=== PATIENT | female | born 1990 | race Caucasian/White ===

== ENCOUNTER → 2019-04-15 16:00 | Outpatient (CLI) | payer OTHER, SELFPAY ==
[2019-04-15 15:40] VITALS: BMI 27.1
[2019-04-16 01:04] LABS: Thyroid Stim Hormone (TSH) 0.95 uIU/mL (0.358-3.74)
== END ==
PROVIDERS: Visit Provider Nurse Practitioner
DX: E03.9 Hypothyroidism, unspecified (principal)
CPT/HCPCS: 84443

== ENCOUNTER → 2020-04-05 | Outpatient (CLI) | payer OTHER, SELFPAY ==
[2020-04-05 17:06] VITALS: BMI 29.2
[2020-04-05 22:25] LABS: Thyroid Stim Hormone (TSH) 1.54 uIU/mL (0.358-3.74)
== END | disposition home or self-care (01) ==
PROVIDERS: PCP Nurse Practitioner; Referring Provider Nurse Practitioner; Visit Provider Nurse Practitioner
DX: E03.9 Hypothyroidism, unspecified (principal)
CPT/HCPCS: 84443

== ENCOUNTER → 2021-04-10 | Outpatient (CLI) | payer OTHER, SELFPAY ==
[2020-04-05 17:06] VITALS: BMI 29.2
[2021-04-10 22:55] LABS: Thyroid Stim Hormone (TSH) 1.18 uIU/mL (0.358-3.74)
== END | disposition home or self-care (01) ==
PROVIDERS: PCP Nurse Practitioner; Visit Provider Nurse Practitioner
DX: E03.9 Hypothyroidism, unspecified (principal)
CPT/HCPCS: 84443

== ENCOUNTER → 2022-04-10 | Outpatient (CLI) | payer OTHER, SELFPAY ==
[2022-04-10 23:13] LABS: Thyroid Stim Hormone (TSH) 4.15 uIU/mL (0.358-3.74)
== END | disposition home or self-care (01) ==
PROVIDERS: PCP Nurse Practitioner; Visit Provider Nurse Practitioner
DX: E03.9 Hypothyroidism, unspecified (principal)
CPT/HCPCS: 84443

== ENCOUNTER → 2022-05-06 | Outpatient (CLI) | payer OTHER, SELFPAY ==
[2022-05-06 22:09] LABS: Thyroid Stim Hormone (TSH) 1.62 uIU/mL (0.358-3.74)
== END | disposition home or self-care (01) ==
PROVIDERS: PCP Nurse Practitioner; Visit Provider Nurse Practitioner
DX: E03.9 Hypothyroidism, unspecified (principal)
CPT/HCPCS: 84443

== ENCOUNTER → 2023-05-14 | Outpatient (CLI) | payer OTHER, SELFPAY ==
[2023-05-14 21:31] LABS: Thyroid Stim Hormone (TSH) 0.65 uIU/mL (0.358-3.74)
== END | disposition home or self-care (01) ==
PROVIDERS: PCP Nurse Practitioner; Visit Provider Nurse Practitioner
DX: E03.9 Hypothyroidism, unspecified (principal)
CPT/HCPCS: 84443

== ENCOUNTER → 2024-05-10 | Outpatient (CLI) | payer OTHER, SELFPAY ==
[2024-05-10 22:42] LABS: Thyroid Stim Hormone (TSH) 1.04 uIU/mL (0.358-3.74)
== END | disposition home or self-care (01) ==
PROVIDERS: PCP Nurse Practitioner; Referring Provider Nurse Practitioner; Visit Provider Nurse Practitioner
DX: E03.9 Hypothyroidism, unspecified (principal); B00.9 Herpesviral infection, unspecified
CPT/HCPCS: 84443

== ENCOUNTER → 2025-05-11 | Outpatient (CLI) | payer OTHER, SELFPAY ==
--- OUTSIDE RECORDS SUMMARY | 2025-05-11 21:22 | XMS RPT_ITS | CCD ---
Author Organization [facility] Care Team Providers Care 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 Name Role Phone Ewa Howe Unavailable Unavailable PROVIDER, UNKNOWN Unavailable Unavailable Randy Cueva Unavailable Unavailable Randy Cueva Primary Care Provider [phone] Harley CAREER COACH.DIRECTOR VIDEORandy Primary Care Provide r Harley CAREER COACH.DIRECTOR VIDEORandy Primary Care Provide r RANDY CUEVA Primary Care Unavailable ARSLAN GOMEZ Attending Unavailable RANDY CUEVA Primary Care Unavailable ARSLAN GOMEZ Attending Unavailable Harley ROOF PROMENADE TILE SETTERRandy Referring Unavailable Harley ROOF PROMENADE TILE SETTER, Randy Attending Unavailable Harley ROOF PROMENADE TILE SETTER, Randy Primary Care Unavailable RANDY CUEVA Primary Care Unavailable RANDY CUEVA Primary Care Unavailable Allergies Allergy Classification Reported Allergen(s) Allergy Type Date of Onset Reaction(s) Facility (5 sources) Amoxicillin Drug Allergy 5 Anaphylaxis [place], [place] (4 sources) Penicillins Propensity to adverse reactions to drug 5 Anaphylaxis [place], [place] (3 sources) Penicillins Drug Allergy 5 Anaphylaxis [facility] (1 source) Penicillins Drug Allergy 5 Anaphylaxis [facility] (1 source) Penicillins Allergy to substance 9 Anaphylaxis [facility] (1 source) Penicillins Drug allergy (disorder) 9 [facility] Repository Medications Current Medications Medication Drug Class(es) Dates Sig (Normalized) Sig (Original) Norethindrone-E.Est radiol-Iron (8 sources) Estrogen Start: 04-15-2019 take 1 tablet by mouth once daily Norethindrone-E.Es tradiol-Iron Active 1 TABLET PO DAILY April 15, 2019 12:00am Norethindrn A-E Estradiol-Iron 1 mg-20 mcg (24)/75 mg (4) Take by mouth. 0 Active Norethin Gregg-Eth Estrad-FE (LOMEDIA 24 FE) 1-20 MG-MCG(24) TABS Take by mouth 0 Active Comment on above: Take by mouth. levothyroxine sodium 0.125 mg oral tablet (20 sources) l-Thyroxine Start: 04-11-2022 End: 05-14-2023 take 125 ug by mouth once daily Levothyroxine Active 125 MCG PO DAILY May 14, 2023 10:36pm Start: 04-15-2019 End: 04-11-2022 take 112 ug by mouth once daily Levothyroxine Disconti nued 112 MCG PO DAILY April 11, 2021 1:29pm April 11, 2022 2:57pm take 1 tablet by shereen th once daily before breakfast levothyroxine (SYNTHROID) 100 mcg tablet Indications: hypothyroidism Take 100 mcg by mouth daily before breakfast. Indications: HYPOTHYROIDISM 0 Active Comment on above: Take 100 mcg by mout h daily before breakfast. Indications: HYPOTHYROIDISM 27-1 MG TABS (1 source) Start: 06-13-20 15 27-1 MG TABS MV-Min-Fe Fum-FA-DHA ( 1 PO) (1 source) take 1 tablet by mouth once, then take 1 tablet by mouth MV-Min-Fe Fum-FA-DHA ( 1 PO) Take 1 tablet by mouth 0 Active valACYclovir 500 mg oral tablet (9 sources) Herpesvirus Nucleoside Analog DNA Polymerase Inhibitor, Herpes Simplex Virus Nucleoside Analog DNA Polymerase Inhibitor, Herpes Zoster Virus Nucleoside Analog DNA Polymerase Inhibitor Start: 04-15-20 19 take 500 mg by mouth twice daily Valacyclovir Active 500 MG PO TWICE A DAY April 15, 2019 12:00am Start: 08-18-2015 take 1 tablet by shereen th once daily valACYclovir (VALTREX) 500 mg tablet Take 1 tablet by mouth once daily. 0 08/18/2015 Active Comment on above: Take 1 tablet by shereen th once daily. Completed/Discontinued Medications Medication Drug Class(es) Dates Sig (Normalized) Sig (Original) acetaminophen 325 mg / HYDROcodone bitartrate 5 mg oral tablet (4 sources) Opioid Agonist Start: 12-04-2021 take 1 tablet by mouth every six hours as needed for pain HYDROcodone-acetam inophen (NORCO) 5-325 mg per tablet Indications: Ankle instability, left , Peroneal tendon injury, left, initial encounter , Sprain of anterior talofibular ligament of left ankle, initial encounter Take 1 tablet by mouth every 6 hours as needed for pain. 28 tablet 0 12/04/2021 Active Comment on above: Take 1 tablet by shereen every 6 hours as needed for pain. gadobutrol (GADAVIST) injection 2 mL (1 source) Start: 11-09-2020 End: 11-09-2020 gadobutrol (GADAVIST) injection 2 mL iopamidol (ISOVUE-300) 61 % injection 25 mL (1 source) Start: 11-09-2020 End: 11-09-2020 iopamidol (ISOVUE-300) 61 % injection 25 mL traMADol hydrochloride 50 mg oral tablet (3 sources) Opioid Agonist Start: 06-30-2019 End: 04-05-2020 take 50 mg by mouth every six hours Tramadol Discontinued 50 MG PO EVERY 6 HOURS 42 June 30, 2019 12:00am April 05, 2020 5:06pm Problems Active Problems Problem Classification Problem Date Documented Da te Episodic/Chronic Allergic reactions (2 sources) Allergy status to penicillin; Translations: [Allergy status to penicillin] Onset: 02-07-2018 Episodic Inflammation, infection of eye (2 sources) Unspecified conjunctivitis; Translations: [Unspecified conjunctivitis] Onset: 02-07-2018 Episodic Other eye disorders (2 sources) Unspecified disorder of eye and adnexa; Translations: [Unspecified disorder of eye and adnexa] Onset: 02-07-2018 Other injuries and conditions due to external causes (9 sources) Tendinopathy of peroneal tendon; Translations: [Unspecified injury of muscle(s) and tendon(s) of peroneal muscle group at lower leg level, left leg, initial encounter] Onset: 11-05-2021 Episodic Other non-traumatic joint disorders (8 sources) Instability of joint of left ankle; Translations: [Other instability, left ankle] Onset: 11-05-2021 Episodic Other non-traumatic joint disorders (1 source) Ankle edema; Translations: [Effusion, left ankle] Episodic Other non-traumatic joint disorders (3 sources) Ankle pain; Translations: [Pain in right ankle and joints of right foot] 06-30-2019 Episodic Sprains and strains (10 sources) Sprain of talofibular ligament of left ankle; Translations: [Sprain of other ligament of left ankle, initial encounter] Episodic Thyroid disorders (10 sources) Hypothyroidism, unspecified; Translations: [Hypothyroidism] Onset: 02-07-2018 11-16-2021 Chronic Unclassified (2 sources) Periorbital cellulitis; Translations: [Periorbital cellulitis] Onset: 02-07-2018 Viral infection (1 source) Herpes simplex of female genitalia; 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] Onset: 08-18-2015 08-18-2015 Chronic Viral infection (3 sources) Herpes simplex; Translations: [Herpesviral infection, unspecified] 04-15-2019 Episodic Past or Other Problems Problem Classification Problem Date Documented Date Episodic/Chronic Fracture of lower limb (4 sources) Closed fracture of talus; Translations: [Unspecified fracture of left talus, subsequent encounter for fracture with delayed healing] Onset: 11-05-2021 11-05-2021 Episodic Genitourinary symptoms and ill-defined conditions (1 source) Dysuria; Translations: [Dysuria] Onset: 08-07-2015 08-07-2015 Episodic Other female genital disorders (1 source) Vaginal discharge; Translations: [Vaginal discharge] Onset: 08-07-2015 08-07-2015 Episodic Unclassified (2 sources) MEDIAL PATELLAR- FEMORAL LIGAMENT RECONSTRUCTION (MPLR) 05-06-2022 Unclassified (2 sources) R KNEE RECONSTRUCTIVE SURGERY 05-06-2022 Results Test Name Value Interpretation Reference Range Facility Thyroid Stim Hormone (TSH)on 05-10-2024 TSH 1.04 uIU/mL Normal 0.358-3.74 [facility] Comment on above: Performed By: #### L [id number] #### [facility] Laboratory [facility] [address] [place], [place], [id number] No Panel InformationOrdered By: Randy Cueva on 05-14-2023 Thyroid Stimulating Hormone (TSH) 0.65 uIU/mL 0.358-3.74 [facility] No Panel Informationon 05-06 Thyroid Stimulating Hormone (TSH) 1.62 uIU/mL 0.358-3.74 [facility] Work Phone: No Panel Informationon 04-10 Thyroid Stimulating Hormone (TSH) 4.15 uIU/mL 0.358-3.74 [facility] Work Phone: [id number] LAURYN [facility] ([phone]) 1990 F Date Time Provider Department 12/21/21 KEVIN CLINTON [id number] During your visit today, we recorded the following information about you: Louisa Primitivo 12/21/2021 2:48 PM Signed Patient called into the office she wanted to know if she should be bearing more weight. Her next appointment is 12/05/21. Please advise Salgado Primitivo 12/24/2021 8:37 AM Signed Left message on voicemail with details for the patient about the boot and weight bearing statis . Allergies As of Date: 12/21/2021 Noted Allergy Reaction AMOXICILLIN 02/22/2015 10 - Anaphylaxis PENICILLINS 02/14/2015 10 - Anaphylaxis Comments: Hives and swelling in throat Date Reviewed: 12/10/2021 Reviewed by: Kevin Clinton DPM - Fully Assessed Reason for Visit: Question [8347] Prescriptions as of 12/24/2021 - HYDROcodone-acetaminop hen (NORCO) 5-325 mg per tablet Take 1 tablet by mouth every 6 hours as needed for pain. - valACYclovir (VALTREX) 500 mg tablet Take 1 tablet by mouth once daily. - Norethindrn A-E Estradiol-Iron 1 mg-20 mcg (24)/75 mg (4) Take by mouth. - levothyroxine (SYNTHROID) 100 mcg tablet Take 100 mcg by mouth daily before breakfast. Indications: HYPOTHYROIDISM Problem List As Of Date 12/21/2021 Noted Resolved Closed nondisplaced fracture of left talus with*11/05/2021 Ankle instability, left [M25.372] 11/05/2021 Peroneal tendon injury, left, initial encounter*11/05/2021 Hypothyroidism [E03.9] Encounter Status:Closed by LOUISA GOMEZ on 12/21/21 Normal [facility] CNPNon 12-11-2021 CNPN Telephone ([id number]) LAURYN FINK ([id number]) 1990 F Date Time Provider Department 12/11/21 KEVIN CLINTON [id number] During your visit today, we recorded the following information about you: Louisa Primitivo 12/11/2021 11:22 AM Signed Patient is aware that the [employer] paper work they have requested was faxed over with a confirmation of received. Allergies As of Date: 12/11/2021 Noted Allergy Reaction AMOXICILLIN 02/22/2015 10 - Anaphylaxis PENICILLINS 02/14/2015 10 - Anaphylaxis Comments: Hives and swelling in throat Date Reviewed: 12/10/2021 Reviewed by: Kevin Clinton DPM - Fully Assessed Reason for Visit: FYI-No Action Needed [265] Prescriptions as of 12/11/2021 - HYDROcodone-acetaminop hen (NORCO) 5-325 mg per tablet Take 1 tablet by mouth every 6 hours as needed for pain. - valACYclovir (VALTREX) 500 mg tablet Take 1 tablet by mouth once daily. - Norethindrn A-E Estradiol-Iron 1 mg-20 mcg (24)/75 mg (4) Take by mouth. - levothyroxine (SYNTHROID) 100 mcg tablet Take 100 mcg by mouth daily before breakfast. Indications: HYPOTHYROIDISM Problem List As Of Date 12/11/2021 Noted Resolved Closed nondisplaced fracture of left talus with*11/05/2021 Ankle instability, left [M25.372] 11/05/2021 Peroneal tendon injury, left, initial encounter*11/05/2021 Hypothyroidism [E03.9] Encounter Status:Closed by LOUISA GOMEZ on 12/11/21 Normal [facility] ANES POSTPROC EVALon 022 ANES POSTPROC EVAL HNO ID: [id number] Author: Nirav Jones MD Service: Anesthesiology Author Type: Anesthesiologist Type: Anesthesia Postprocedure Evaluation Filed: 11/21/2021 10:12 AM Note Text: POST ANESTHESIA EVALUATION NOTE : 1990 Procedure Summary Date: 11/21/21 Room / Location: [address] Anesthesia Start: 748 Anesthesia Stop: 954 Procedures: ARTHROSCOPY ANKLE W/ DEBRIDEMENT EXTENSIVE (Left Ankle) REPAIR TENDON PERONEAL (Left Ankle) REPAIR COLLATERAL LIGAMENT BOTH PRIMARY ANKLE (Left Ankle) Diagnosis: Closed nondisplaced fracture of left talus with delayed healing, unspecified fracture morphology, subsequent encounter Ankle instability, left Peroneal tendon injury, left, initial encounter (Closed nondisplaced fracture of left talus with delayed healing, unspecified fracture morphology, subsequent encounter [S92.102G]) (Ankle instability, left [M25.372]) (Peroneal tendon injury, left, initial encounter [S86.302A]) Surgeons: Ellie Cuello DPM Responsible Provider: Nirav Jones MD Anesthesia Type: general ASA Status: 2 Anesthesia Type: general Airway Type: LMA Last Vitals Vitals Value Taken Time BP 107/71 11/21/21 1000 Temp 36.4 ?C (97.5 ?F) 11/21/21 0953 Pulse 78 11/21/21 1011 Resp 16 11/21/21 1000 SpO2 99 % 11/21/21 1011 Vitals shown include unvalidated device data. Post Anesthesia Patient Status Patient Evaluation: PACU. PACU/ICU Patient Condition: stable. Anticipated Disposition: phase 2 then home. Neurological Status: aware and responsive. Pulmonary Status: breathing comfortably on room air Airway Control: returned to baseline unsupported. Cardiovascular Status: stable. Pain Management: clinically adequate Postoperative Hydration: acceptable. Intraoperative Events: no significant anesthesia events Recommendation: continue current plan of care and further care per PACU/ICU/floor team. Anesthesia Observations No Documentation SIGNATURE: Nirav Jones MD PATIENT NAME: Lauryn Fink DATE: November 21, 2021 TIME: 10:12 AM CSN: [id number] [facility] ANES PRE-OPon 11-21-2021 ANES PRE-OP HNO ID: [id number] Author: Nirav Jones MD Service: Anesthesiology Author Type: Anesthesiologist Type: Anesthesia Preprocedure Evaluation Filed: 11/21/2021 7:20 AM Note Text: ANESTHESIOLOGY DAY OF SURGERY NOTE : 1990 Procedure Information Date/Time: 11/21/21 0729 Procedures: ARTHROSCOPY ANKLE W/ DEBRIDEMENT EXTENSIVE (Left Ankle) REPAIR TENDON PERONEAL (Left Ankle) REPAIR COLLATERAL LIGAMENT BOTH PRIMARY ANKLE (Left Ankle) Location: [address] / [facility] Surgeons: Ellie Cuello DPM Estimated body mass index is 29.12 kg/m? as calculated from the following: Height as of 11/13/21: 165.1 cm (5' 5). Weight as of 11/13/21: 79.4 kg (175 lb). Most recent hematocrit and potassium results: Hematocrit 33.7 02/23/2015 Relevant Problems ENDO (+) Hypothyroidism I - PHYSICAL EVALUATION AIRWAY Patient intubated: No. Tracheostomy tube not present Mallampati: II. TM distance: >3 FB. Neck ROM: full ROM without neurological symptoms. Mouth opening: adequate. Short neck: no. Thick neck: no DENTAL Dental findings: teeth intact. Additional exam findings: yes. CARDIOVASCULAR Normal cardiovascular observations. Rhythm: regular Rate: normal PULMONARY Normal pulmonary observations. Breath sounds clear to auscultation. Other findings: Patient unable to void for urine test. She denies possibility of and desires to proceed. All members of the team agree and we will proceed with the case.. II - ANESTHESIA PLAN ASA Score: 2 Anesthetic Plan: general Airway type: LMA NPO Status: adequate Monitoring plan: Standard ASA. Postoperative analgesic plan: multimodal analgesia and peripheral nerve block. Anesthetic Risks, Benefits, Alternatives, Personnel Discussed. Consent obtained from: patient.Patient / Surrogate agrees to blood products: blood products not planned Significant changes in the patient condition since the History and Physical, not otherwise documented in primary service progress note: no. Potential Anesthesia issues that may suggest increased risk of complications or contraindication to planned procedure: none. Vitals Value Taken Time BP 124/79 11/21/2135 Pulse 94 11/21/21635 Resp 16 11/21/21630 Temp 36 ?C (96.8 ?F) 11/21/21630 SpO2 100 % 11/21/21635 Vitals shown include unvalidated device data. Facility-Administered Medications as of 11/21/2021 Medication Dose Route Frequency - [COMPLETED] acetaminophen 1,000 mg tab(s) (TYLENOL) 1,000 mg ORAL Pre-Op Once - [COMPLETED] promethazine 12.5 mg tab(s) (PHENERGAN) 12.5 mg ORAL Pre-Op Once - lactated ringers iv infusion 30 mL/hr INTRAVENOUS CONTINUOUS - lidocaine 10 mg/mL (1 %) 1-2 mg injection (XYLOCAINE) 0.1-0.2 mL INTRADERMAL PRN - lactated ringers iv infusion 5-30 mL/hr INTRAVENOUS CONTINUOUS - clindamycin iv piggyback 900 mg in D5W 50 mL (CLEOCIN) 900 mg INTRAVENOUS Pre-Op Once Outpatient Medications as of 11/21/2021 Medication Sig - Norethindrn A-E Estradiol-Iron 1 mg-20 mcg (24)/75 mg (4) Take by mouth. - levothyroxine (SYNTHROID) 100 mcg tablet Take 100 mcg by mouth daily before breakfast. Indications: HYPOTHYROIDISM - valACYclovir (VALTREX) 500 mg tablet Take 1 tablet by mouth once daily. (Patient not taking: Reported on 11/13/2021 ) I have interviewed and examined the patient. I have reviewed the medical record and/or the pre-anesthesia evaluation, pertinent labs, and test results. This contains updated information obtained within 48 hours of Surgery/Procedure. SIGNATURE: Nirav Jones MD PATIENT NAME: Lauryn Fink DATE: November 21, 2021 TIME: 6:42 AM CSN: [id number] [facility] BRIEF OP NOTon 11-21-2021 BRIEF OP NOT HNO ID: [id number] Author: Siobhan Anthony DPM Service: Podiatry Author Type: Resident Type: Brief Op Note Filed: 11/21/2021 9:59 AM Note Text: Attestation signed by Ellie Cuello DPM at 11/21/2021 10:25 AM Statement of Resident/FellowSupervi liz: The resident/fellow was under my direct supervision during today's patient encounter. I am in agreement with the medical chart documentation, as this is a reflection of my personal examination, assessment and treatment plan. Additionally, I was present with the resident/fellow during the entire history and exam and documented the patient's assessment and treatment plan. I discussed the management with the resident. Ellie Cuello DPM, FACFAS BRIEF OPERATIVE / PROCEDURE NOTE LOG ID: [id number] SURGERY/PROCEDURE DATE: 11/21/2021 INCISION/PROCEDURE START TIME: 8:15 AM INCISION CLOSE/PROCEDURE END TIME: 9:44 AM SURGEON(S)/PROCEDURALI ST(S) AND HEAD CHAR FILTER TANK TENDER(S): Surgeon(s) and Role: * Ellie Cuello DPM - Primary * Siobhan Anthony DPM - Resident - Assisting No Additional Staff SURGERY/PROCEDURE(S): Peroneal tendon repair, left foot Lateral ankle stabilization, left foot Ankle arthroscopy, left foot ANESTHESIA: General FINDINGS: See op note ESTIMATED BLOOD LOSS: 10 mls SPECIMENS: Peroneal tendon tear, left foot COMPLICATIONS: None PRE-OP/PRE-PROCEDURE DIAGNOSIS: Peroneal tendon tear; lateral ankle instability, ankle synovitis, all left foot POST-OP/POST-PROCEDURE DIAGNOSIS: Same as Preop SIGNATURE: Siobhan Anthony DPM PATIENT NAME: Lauryn Fink DATE: November 21, 2021 TIME: 9:57 AM [phone] [facility] HISTORY PHYSICALon HISTORY PHYSICAL HNO ID: [id number] Author: Siobhan Anthony DPM Service: Podiatry Author Type: Resident Type: HANDP Filed: 11/21/2021 9:57 AM Note Text: Attestation signed by Ellie Cuello DPM at 11/21/2021 10:25 AM Statement of Resident/FellowSupervi liz: The resident/fellow was under my direct supervision during today's patient encounter. I am in agreement with the medical chart documentation, as this is a reflection of my personal examination, assessment and treatment plan. Additionally, I was present with the resident/fellow during the entire history and exam and documented the patient's assessment and treatment plan. I discussed the management with the resident. Ellie Cuello DPM, FACFAS PODIATRIC HISTORY AND PHYSICAL UPDATE EVALUATION DATE: 11/21/2021 EVALUATION TIME: 7:04 AM The documented History and Physical (completed in the past 30 days) has been reviewed and the patient had a confirmatory musculoskeletal exam performed. The contents of the pre-operative assesment accurately reflect the patient's condition with the following additions or revisions since the HANDP was completed: No changes. This HANDP can be found in the record dated 11/13/2021. SIGNATURE: Siobhan Anthony DPM PATIENT NAME: Lauryn Fink DATE: November 21, 2021 [facility] NURSING PROGon 11-21-2021 NURSING PROG HNO ID: [id number] Author: Anabel Hunter RN Service: ? Author Type: Registered Nurse Type: Nursing Progress Note Filed: 11/21/2021 7:08 AM Note Text: Nursing Progress Note Patient Name: Lauryn Fink Patient Location: [facility] POOL/[facility] POOL __ Daily Note:Pt unable to give urine sample for test , agrees to move ahead with procedure and block.Risks explained to pt if and receiving anesthesia. Dr. Jones and Teodora Cruz at bedside to discuss.Dr. Cuello also made aware.ok to proceed. This note was completed by: Anabel Hunter [facility] OPERATIVE NOon 11-21-2021 OPERATIVE NO HNO ID: [id number] Author: Ellie Cuello DPM Service: Podiatry Author Type: Physician Type: Operative Report Filed: 11/22/2021 10:42 AM Note Text: OPERATIVE REPORT NAME: Lauryn Fink DATE: 11/21/21 AGE: [age] year old SURGEON: Ellie Cuello DPM ASSISTANTS: 1. Siobhan Anthony DPM PGY-3 PREOPERATIVE DIAGNOSIS: 1. Peroneal tendon tear; lateral ankle instability, ankle synovitis with possible cartilage defect, all left foot POSTOPERATIVE DIAGNOSIS: 1. Same as preop OPERATION: 1. Peroneal tendon repair, left foot 2. Lateral ankle stabilization with Brostom procedure, left foot 3. Ankle arthroscopy, left foot (Limited) 4. 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 She is here for surgical repair of this today now that she has failed on conservative therapy. Discussed surgical and non-surgical methods of treatment with the patient. The natural history and course were discussed in relation to the options. Surgical risks, benefits, alternatives post-operative course, and all possible outcomes were discussed in great detail. Answered all of the patient's questions to the patient's satisfaction. No guarantees were given. The patient understands this. Patient elects to proceed with surgery. OPERATIVE FINDINGS: No evidence of cartilage defect within the left ankle joint. There is chronic synovitis. Ligamentous laxity noted to the ATFL which appeared to be insufficient. Longitudinal split tear peroneus brevis tendon, left foot. Low lying muscle belly of the peroneals, left foot. OPERATIVE PROCEDURE: Patient was transferred from the preoperative holding area to the operative suite and placed in a supine position. Popliteal nerve block performed pre-operatively. All monitors were applied. General anesthesia was administered. Prophylaxis was obtained with 900 mg clindamycin IV piggyback pre-operatively. Tourniquet was applied to the left thigh, but not yet inflated. The left foot, ankle, and leg were then prepped and draped in the normal sterile fashion. Time out was performed. Attention was directed to the anterior medial ankle where the ankle was insufflated with 20 cc of 1% lidocaine with epinephrine. Anatomic landmarks were then identified, specifially the anterior tibialis tendon and the superficial peroneal nerve, which were protected throughout the procedure. An anterior medial portal was created with an #11 blade medial to the tibialis anterior tendon. The soft tissues were spread with a hemostat. The obturator and cannula was inserted. A 30? angle Arthrex camera was utilized. The joint was split and insufflated with sterile saline via arthroscopy pump. Excellent visualization was achieved. There was noted to be mild synovitis within the joint. No obvious osteochondral defect was noted. Due to further visualization, lateral portal was made under direct visualization. An #11 blade was used to create the lateral portal lateral to the extensor digitorum longus tendon at the level of the ankle joint line. Great care was taken to prevent injury to the superficial peroneal nerve. Blunt obturator was inserted. A shaver was then inserted and hypertrophied synovitis was debrided. The ankle was fully visualized. The central groove was intact. Inferior tibial surface appeared to be intact. Medial shoulder of the talus as well as medial gutter overall was intact. At this time, the scope was removed and attention was directed laterally. Landmarks were then identified laterally prior to incision, including the distal fibula, superficial peroneal nerve, and superior border of the peroneal tendons. Inferior extensor retinaculum was also marked, 1.5cm from the distal tip of the fibula. A utility incision was then made in a linear fashion from the posterior aspect of the distal 1/3 of the fibula overlying the peroneals toward the inferior extensor retinaculum. This was performed sharply and then bluntly. Bleeders were cauterized as appropriate. A #15 blade was used to carry the incision to the level of bone of the distal tip of the fibula, creating a cuff of soft tissue of the anterior talofibular ligament. This dissection was carried carefully posterior exposing the sheath of the peroneal tendons. The tendon sheath was then incised from the SPR and proximal to reveal the full extent of the peroneal tendons. The brevis and longus were identified. There was noted to be significant tenosynovitis, a longitudinal split tear of the peroneal brevis tendon, as well as a low lying muscle belly. All tenosynovitis was then removed with a # 15 blade and the diseased portion of the brevis tendon was also removed. The remaining brevis tendon was then anastomosed with the p (more content not included)... Normal [facility] SURGICAL PATHOLOGYon 022 SURGICAL PATHOLOGY Specimen originated from [facility] Specimen #: [id number] Submitting Physician: ELLIE CUELLO FINAL DIAGNOSIS Soft tissue, left peroneal tendon, excision: Tendon, fibrocartilage and fibrous tissue with non-specific reactive changes. ADELINA/AMANDA 11/23/2021 David Burton M.D., PhD (Electronic Signature) _ SPECIMEN SUBMITTED A: LEFT PERONEAL TENDON CLINICAL DATA LEFT ANKLE ARTHROSCOPY, LEFT PERONEAL TENDON REPAIR, LEFT COLLATERAL LIGAMENT REPAIR; LEFT PERONEAL TENDON TEAR GROSS DESCRIPTION A. Received in formalin designated left peroneal tendon is a michel-white cylindrical striated rubbery fragment of tissue that measures 3.3 x 0.2 x 0.2 cm. The specimen is serially sectioned and entirely submitted in one cassette. WE/ 11/22/2021 Gross examination performed at [facility], [address] [place] [address] Date of Report: 11/26/2021 Date of Procedure: 11/21/2021 Date of Receipt: 11/22/2021 Submitted by: ELLIE CUELLO Additional Physician(s): RANDY CUEVA APRN, CNP Location: [facility] Diagnostic interpretation performed at [facility], [address] [place] [address]. CLIA Number: [id number] Normal [facility] HISTORY PHYSICALon HISTORY PHYSICAL HNO ID: [id number] Author: Lore King PA-C Service: ? 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 It require patient-provider interaction for the medical decision making as documented below. Reason for contact: PACC visit Accompanied by: Self Scheduled Surgery: ARTHROSCOPY ANKLE W/ DEBRIDEMENT EXTENSIVE LEFT; REPAIR TENDON PERONEAL LEFT; REPAIR COLLATERAL LIGAMENT BOTH PRIMARY ANKLE LEFT 11/21/2021 Subjective CHIEF COMPLAINT: Patient presents with: Pre-Op Exam HPI: This is a 31 year old female who presents with a closed nondisplaced fracture of her left talus, ankle instability, and peroneal tendon injury she sustained going down a step in March 2021. She noticed pain and swelling the following day and continued to have pain and swelling and was placed in a boot. The pain is constant achy pain that worsens with prolonged walking and cold weather. Rest helps to alleviate the pain. MRI from 09/10/2021 revealed: ? IMPRESSION: 1. ?Split tear of the peroneus brevis tendon. 2. ?Mild tenosynovitis involving the peroneal tendons and posterior tibial tendon versus physiologic fluid. 3. ?Low-grade sprain of the deltoid ligaments and anterior syndesmotic ligaments. 4. ?Nonspecific posterior subtalar joint effusion. 5. ?Small area of grade 2 cartilage irregularity involving the medial tibial plafond. 6. ?No evidence of bone fracture or contusion. ACTIVE PROBLEM LIST Closed Nondisplaced Fracture of Left Talus With Delayed Healing Ankle Instability, Left Peroneal Tendon Injury, Left, Initial Encounter PAST MEDICAL HISTORY Diagnosis Date - Closed nondisplaced fracture of left talus - Hypothyroidism - Knee dislocation right - Thyroid disease PAST SURGICAL HISTORY Procedure Laterality Date - KNEE SURGERY HX Right 2013 FAMILY HISTORY Problem Relation Age of Onset - Hypothyroidism Mother - No Known Problems Father Social History Tobacco Use - Smoking status: Never Smoker - Smokeless tobacco: Never Used Substance Use Topics - Alcohol use: Yes Alcohol/week: 1.3 standard drinks Types: 1 Mixed Drinks per week - Drug use: No ALLERGIES Allergen Reactions - Amoxicillin Anaphylaxis - Penicillins Anaphylaxis Hives and swelling in throat MEDICATIONS: Current Outpatient Medications Medication Sig - Norethindrn A-E Estradiol-Iron 1 mg-20 mcg (24)/75 mg (4) Take by mouth. - levothyroxine (SYNTHROID) 100 mcg tablet Take 100 mcg by mouth daily before breakfast. Indications: HYPOTHYROIDISM - valACYclovir (VALTREX) 500 mg tablet Take 1 tablet by mouth once daily. (Patient not taking: Reported on 11/13/2021 ) No current facility-administered medications for this visit. COVID VACCINATION STATUS: Fully vaccinated REVIEW OF SYSTEMS: Pain Assessment: General: No weight loss, malaise or fevers. Neuro: No history of TIA's, stroke, COLOR WEIGHER tumor, impaired sensorium, hemiplegia, paraplegia or quadraplegia. No neurological symptoms or problems. Respiratory: No history of current cough or dyspnea, or pneumonia in the past 6 weeks. No history of respiratory/pulmonary symptoms or problems. Cardiovascular: No history of HTN requiring medication, no history of angina, CHF, VA, cardiac surgery or stents. Denies rest pain, gangrene or revascularization/ampu tation for PVD. No history of cardiovascular symptoms or problems. GI: No history of GI symptoms or problems. No history of esophageal varices, recent ascites, or ETOH greater than 2 drinks per day. : No history of dysuria, frequency or incontinence,, stones or chronic kidney disease COUNTY TAX ASSESSOR: Negative for abnormal vaginal bleeding, abnormal vaginal discharge. : Denies, Patient's last menstrual period was 11/02/2021 (exact date). Endocrine: No history of diabetes. Has not taken steroids within the past 30 days. +hypothyroid Hematology: No history of bleeding or clotting disorder. Pt is not taking anti-coagulation or platelet medications. No history of hematological symptoms or problems. Oncology: No history of CA metastasis, chemo within 30 days, or radiotherapy within 90 days. Has not lost 10% of body wt in 6 months. No history of oncological symptoms or problems. Psych: No history of psychiatric symptoms or problems. Musculoskeletal: Negative for back pain or muscle pain. +Closed nondisplaced fracture of left talus/ ankle instability/ peroneal tendon injury- see HPI Skin: Negative for lesions, rash and itching. Objective PHYSICAL EXAM: Ht 5' 5 (1.65m) Wt 175 lb (79.4kg) LMP 11/02/2021 BMI 29.12 kg/(m2). VIDEO EXAM: (if completed, performed via video enabled technology) GENERAL: alert and appropriate, in no distress, well-hydrated, well nourished and happy, smiling, interacti (more content not included)... Normal [facility] [place] 11-05-2021 [facility] Telephone ([id number]) LAURYN FINK ([id number]) 1990 F Date Time Provider Department 11/05/21 ELLIE CUELLO [facility] During your visit today, we recorded the following information about you: Ewa Jenkins MA 11/05/2021 10:14 AM Signed Lauryn is scheduled 11/21/21 at [facility]. Please send surgery orders. Allergies As of Date: 11/05/2021 Noted Allergy Reaction AMOXICILLIN 02/22/2015 10 - Anaphylaxis PENICILLINS 02/14/2015 10 - Anaphylaxis Comments: Hives and swelling in throat Date Reviewed: 10/10/2021 Reviewed by: Chapis Thomason MA - Fully Assessed Reason for Visit: Schedule Surgery [1330] Prescriptions as of 11/14/2021 - valACYclovir (VALTREX) 500 mg tablet Take 1 tablet by mouth once daily. - Norethindrn A-E Estradiol-Iron 1 mg-20 mcg (24)/75 mg (4) Take by mouth. - levothyroxine (SYNTHROID) 100 mcg tablet Take 100 mcg by mouth daily before breakfast. Indications: HYPOTHYROIDISM Problem List As Of Date 11/05/2021 Noted Resolved Closed nondisplaced fracture of left talus with*11/05/2021 Ankle instability, left [M25.372] 11/05/2021 Peroneal tendon injury, left, initial encounter*11/05/2021 Encounter Status:Closed by EWA JENKINS MA on 11/14/21 [facility] MRI ANKLE WO IVCON LTon 12-0 MRI ANKLE WO IVCON LT * * *Final Report* * * DATE OF EXAM: Sep 09 2021 2:16PM MDM 0163 - MRI ANKLE WO IVCON LT / PROCEDURE REASON: M25.572-Acute left ankle pain * * * * Physician Interpretation * * * * MRI OF THE LEFT ANKLE CLINICAL HISTORY: fall March 2021, lateral sided left ankle pain, no prior surgery TECHNIQUE: Multiplanar multisequence MRI imaging of the left ankle was performed without administration of gadolinium. COMPARISON: No prior study for comparison. FINDINGS: No abnormal ankle joint effusion. Also minimal grade 2 cartilage irregularity involving the medial tibial plafond and (series 7 image 23). No osteochondral lesion of the ankle joint. Anterior subtalar joint is intact. Posterior subtalar joint effusion. No osteochondral lesion or injury of the posterior subtalar joint. ATFL, PTFL, and CFL are intact. Low-level signal involving the deltoid ligaments (series 8 image 11 and series 7 images 24 and 25). Low-level signal involving the anterior syndesmotic ligaments (series 8 images 8 and 9). Posterior syndesmotic ligaments are intact. Achilles tendon is intact. Plantar aponeurosis is intact. Mild tenosynovitis involving the posterior tibial tendon. Posterior tibial tendon, flexor digitorum longus, and flexor hallucis longus tendon are intact. Physiologic fluid involving the peroneal tendons versus mild tenosynovitis. Split tear involving the peroneus brevis tendon (series 8 images 4 through 17). Peroneus longus tendon and extensor tendons of the ankle are intact. No evidence of bone fracture or contusion. Midfoot bone alignment is intact. No soft tissue mass or collection. IMPRESSION: 1. Split tear of the peroneus brevis tendon. 2. Mild tenosynovitis involving the peroneal tendons and posterior tibial tendon versus physiologic fluid. 3. Low-grade sprain of the deltoid ligaments and anterior syndesmotic ligaments. 4. Nonspecific posterior subtalar joint effusion. 5. Small area of grade 2 cartilage irregularity involving the medial tibial plafond. 6. No evidence of bone fracture or contusion. 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: [facility] Transcribe Date/Time: Sep 10 2021 8:26A Dictated by : EDIN IVEY MD This examination was interpreted and the report reviewed and electronically signed by: EDIN IVEY MD on Sep 10 2021 9:02AM EST [id number] [facility] 08-13-2021 [facility] Telephone ([id number]) LAURYN FINK ([id number]) 1990 F Date Time Provider Department 08/13/21 KEVIN CLINTON [id number] During your visit today, we recorded the following information about you: Ewa Fernando MA 08/13/2021 11:40 AM Signed MRI is approved Ref # is [id number] and approval # is [id number] I left message with patient to make appointment Allergies As of Date: 08/13/2021 Noted Allergy Reaction AMOXICILLIN 02/22/2015 10 - Anaphylaxis PENICILLINS 02/14/2015 10 - Anaphylaxis Comments: Hives and swelling in throat Date Reviewed: 08/13/2021 Reviewed by: Kevin Clinton DPM - Fully Assessed Reason for Visit: Insurance Authorization [[id number]] Cmt: MRI Prescriptions as of 08/14/2021 - meloxicam (MOBIC) 15 mg tablet TAKE 1 TABLET BY MOUTH EVERY DAY - Norethindrn A-E Estradiol-Iron 1 mg-20 mcg (24)/75 mg (4) Take by mouth. - methylPREDNISolone (MEDROL, PHAN,) 4 mg Dose-Pack Use as directed - oxyCODONE-acetaminophe n (PERCOCET) 5-325 mg tablet Take 1-2 tablets by mouth every 4 hours as needed. - ibuprofen (MOTRIN) 600 mg tablet Take 1 tablet by mouth four times daily as needed. - levothyroxine (SYNTHROID) 100 mcg tablet Take 100 mcg by mouth daily before breakfast. Indications: HYPOTHYROIDISM - PNV NO.115/IRON FUMARATE/FA ( 19 ORAL) Take by mouth. Problem List As Of Date: 08/13/2021 (None) Encounter Status:Closed by EWA FERNANDO MA on 08/14/21 [facility] OBSOLETEon 07-27-2021 OBSOLETE Refill ([id number]) LAURYN FINK ([id number]) 1990 F Date Time Provider Department 07/27/21 KEVIN CLINTON [id number] During your visit today, we recorded the following information about you: Allergies As of Date: 07/27/2021 Noted Allergy Reaction AMOXICILLIN 02/22/2015 10 - Anaphylaxis PENICILLINS 02/14/2015 10 - Anaphylaxis Comments: Hives and swelling in throat Date Reviewed: 07/16/2021 Reviewed by: Kevin Clinton DPM - Fully Assessed Reason for Visit: Refill Request [94] Order(s):meloxicam (MOBIC) 15 mg tabletTAKE 1 TABLET BY MOUTH EVERY DAYDisp: 30 tabletRfl: 1 Prescriptions as of 07/31/2021 - meloxicam (MOBIC) 15 mg tablet TAKE 1 TABLET BY MOUTH EVERY DAY - Norethindrn A-E Estradiol-Iron 1 mg-20 mcg (24)/75 mg (4) Take by mouth. - methylPREDNISolone (MEDROL, PHAN,) 4 mg Dose-Pack Use as directed - oxyCODONE-acetaminophe n (PERCOCET) 5-325 mg tablet Take 1-2 tablets by mouth every 4 hours as needed. - ibuprofen (MOTRIN) 600 mg tablet Take 1 tablet by mouth four times daily as needed. - levothyroxine (SYNTHROID) 100 mcg tablet Take 100 mcg by mouth daily before breakfast. Indications: HYPOTHYROIDISM - PNV NO.115/IRON FUMARATE/FA ( 19 ORAL) Take by mouth. Problem List As Of Date: 07/27/2021 (None) Prescriptions ordered this encounter Disp Refills Start End MELOXICAM 15 MG TABLET 30 t* 1 07/31/2021 Sig: TAKE 1 TABLET BY MOUTH EVERY DAY Medications Discontinued During This Encounter Prescriptions - meloxicam (MOBIC) 15 mg tablet (Discontinued) Take 1 tablet by mouth once daily. Encounter Status:Closed by GENESIS CLINTON on 07/31/21 [facility] ARTHR/ASP/INJ MAJOR JT/BU RSA LT WO USon 11-09-2020 Patient Name: LAURYN FINK Fluoroscopy ACCESSION EXAM DATE/TIME PROCEDURE ORDERING PROVIDER [id number] 11/09/2020 12:49 EST RF Arthrogram Aspir Inj SUZETTE NICHOLS Cedric Jt Left CPT code 91450 [id number] Reason For Exam (RF Arthrogram Aspir Inj Cedric Jt Left) impingement syndrome of left shoulder, left biceps tendonitis Report Examination: Fluoroscopic guided left shoulder arthrogram and gadolinium injection Clinical Indication: Left shoulder pain concern for impingement, left biceps tendinitis Comparison: None Findings: Informed written consent was obtained from the patient after the risks, benefits, and alternatives to diagnostic joint injection were adequately explained and all questions were answered. This was explained by Dr. George Zhu. Patient was placed in supine position. 0.5 percent ropivacaine was used for local anesthesia. Access was then obtained under direct fluoroscopic guidance into the left glenohumeral joint. A solution of 1 to 200 IV gadolinium Magnevist (<1ml), 10 mL of Isovue-200, 3 mL of ropivacaine, and 7 mL of saline was injected to distend the joint space. Total fluoroscopic time 0.5 minutes. Three stored fluoroscopic images obtained. Arthrogram demonstrates no contrast extravasation. There is laxity within the inferior joint capsule. No immediate complications were appreciated. Impression: Status post left glenohumeral joint diagnostic gadolinium injection for subsequent MR arthrography. Some laxity within the inferior joint capsule. No conventional arthrographic evidence of rotator cuff tear. Fluoroscopy Report Report Dictated on --- Final --- Dictated: 11/09/2020 3:15 pm Dictating Physician: MD ZHU ANTHONY J Signed Date and Time: 11/09/2020 3:17 pm Signed by: MD ZHU ANTHONY J Transcribed Date and Time: 11/09/2020 3:15 [facility] Incoming Radiology Results From [facility] - 11/09/2020 3:18 PM EST Patient Name: LAURYN FINK [facility]#: [id number] Fluoroscopy ACCESSION EXAM DATE/TIME PROCEDURE ORDERING PROVIDER [id number] 11/09/2020 12:49 EST RF Arthrogram Aspir Inj SUZETTE NICHOLS Cedric Jt Left CPT code 12765 [id number] Reason For Exam (RF Arthrogram Aspir Inj Cedric Jt Left) impingement syndrome of left shoulder, left biceps tendonitis Report Examination: Fluoroscopic guided left shoulder arthrogram and gadolinium injection Clinical Indication: Left shoulder pain concern for impingement, left biceps tendinitis Comparison: None Findings: Informed written consent was obtained from the patient after the risks, benefits, and alternatives to diagnostic joint injection were adequately explained and all questions were answered. This was explained by Dr. George Zhu. Patient was placed in supine position. 0.5 percent ropivacaine was used for local anesthesia. Access was then obtained under direct fluoroscopic guidance into the left glenohumeral joint. A solution of 1 to 200 IV gadolinium Magnevist (<1ml), 10 mL of Isovue-200, 3 mL of ropivacaine, and 7 mL of saline was injected to distend the joint space. Total fluoroscopic time 0.5 minutes. Three stored fluoroscopic images obtained. Arthrogram demonstrates no contrast extravasation. There is laxity within the inferior joint capsule. No immediate complications were appreciated. Impression: Status post left glenohumeral joint diagnostic gadolinium injection for subsequent MR arthrography. Some laxity within the inferior joint capsule. No conventional arthrographic evidence of rotator cuff tear. Fluoroscopy Report Report Dictated on --- Final --- Dictated: 11/09/2020 3:15 pm Dictating Physician: MD ZHU ANTHONY J Signed Date and Time: 11/09/2020 3:17 pm Signed by: MD ZHU ANTHONY J Transcribed Date and Time: 11/09/2020 3:15 [place], [place] MRI UPPER EXTREMITY LEFT W [facility] 11-09-2020 Patient Name: LAURYN FINK Magnetic Resonance Imaging ACCESSION EXAM DATE/TIME PROCEDURE ORDERING PROVIDER [id number] 11/09/2020 13:23 EST MRI Up Ext Joint w/ SUZETTE NICHOLS Contrast Left CPT code 48117 Reason For Exam (MRI Up Ext Joint w/ Contrast Left) left shoulder pain post arthrogram Report Examination: MRI arthrogram left shoulder Clinical Indication: left shoulder pain post arthrogram Comparison: None Findings: Multiplanar multisequence MRI images were obtained through the left shoulder after administration of 1 to 200 intra-articular Gadavist gadolinium (<1ml). Images include axial, sagittal, and coronal sequences. Patient deferred abducted externally rotated (ABER) imaging, unable to maintain deposition without subluxation. T2 weighted images demonstrate no osseous edema within the shoulder to suggest fracture or contusion. Examination is mildly degraded by motion artifact. Patient unable to remain completely still during the exam. Normal osseous signal intensity. No avascular necrosis. No evidence of Hill-Sachs or Bankart type injury. Acromioclavicular joint is within normal limits. There is flat type I acromion. No significant inflammation in the subacromial subdeltoid bursa. Long head biceps is normal in morphology and signal without tear or subluxation. Subscapularis is grossly intact, normal in appearance. Supraspinatus and infraspinatus also are intact, normal in morphology and signal. No significant tendinitis. Glenohumeral articular cartilage demonstrates no focal or full thickness defect. There is mild cartilage thinning posteriorly. 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 There is linear Magnetic Resonance Imaging Report tear, slightly jagged and irregular within the superior and posterior superior labrum, SLAP type lesion and age-indeterminate. Superior and middle glenohumeral ligaments are normal. Inferior glenohumeral ligament demonstrates laxity and partial chronic tear at the humeral attachment best seen on series 9 image 13. There is some extravasation of contrast inferiorly. Tear measures approximately 0.6 cm series 7 image 16 with some thinning of the glenohumeral ligament. Impression: 1. Age-indeterminate SLAP tear of the superior and posterior superior glenoid labrum. 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 2. Laxity and thinning within the inferior glenohumeral ligament more posteriorly with focal defect measuring 0.6 cm near the humerus. Finding likely represents remote partial humeral avulsion of the glenohumeral ligament, chronic HAGL type injury. Correlate with concern for capsular instability. Report Dictated on --- Final --- Dictated: 11/09/2020 3:47 pm Dictating Physician: MD ZHU ANTHONY J Signed Date and Time: 11/09/2020 4:13 pm Signed by: MD ZHU ANTHONY J Transcribed Date and Time: 11/09/2020 3:47 [facility] [place] [place] Incoming Radiology Results From [facility] - 11/09/2020 4:14 PM EST Patient Name: LAURYN FINK Magnetic Resonance Imaging ACCESSION EXAM DATE/TIME PROCEDURE ORDERING PROVIDER [id number] 11/09/2020 13:23 EST MRI Up Ext Joint w/ SUZETTE NICHOLS Contrast Left CPT code 58750 Reason For Exam (MRI Up Ext Joint w/ Contrast Left) left shoulder pain post arthrogram Report Examination: MRI arthrogram left shoulder Clinical Indication: left shoulder pain post arthrogram Comparison: None Findings: Multiplanar multisequence MRI images were obtained through the left shoulder after administration of 1 to 200 intra-articular Gadavist gadolinium (<1ml). Images include axial, sagittal, and coronal sequences. Patient deferred abducted externally rotated (ABER) imaging, unable to maintain deposition without subluxation. T2 weighted images demonstrate no osseous edema within the shoulder to suggest fracture or contusion. Examination is mildly degraded by motion artifact. Patient unable to remain completely still during the exam. Normal osseous signal intensity. No avascular necrosis. No evidence of Hill-Sachs or Bankart type injury. Acromioclavicular joint is within normal limits. There is flat type I acromion. No significant inflammation in the subacromial subdeltoid bursa. Long head biceps is normal in morphology and signal without tear or subluxation. Subscapularis is grossly intact, normal in appearance. Supraspinatus and infraspinatus also are intact, normal in morphology and signal. No significant tendinitis. Glenohumeral articular cartilage demonstrates no focal or full thickness defect. There is mild cartilage thinning posteriorly. 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 There is linear Magnetic Resonance Imaging Report tear, slightly jagged and irregular within the superior and posterior superior labrum, SLAP type lesion and age-indeterminate. Superior and middle glenohumeral ligaments are normal. Inferior glenohumeral ligament demonstrates laxity and partial chronic tear at the humeral attachment best seen on series 9 image 13. There is some extravasation of contrast inferiorly. Tear measures approximately 0.6 cm series 7 image 16 with some thinning of the glenohumeral ligament. Impression: 1. Age-indeterminate SLAP tear of the superior and posterior superior glenoid labrum. 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 2. Laxity and thinning within the inferior glenohumeral ligament more posteriorly with focal defect measuring 0.6 cm near the humerus. Finding likely represents remote partial humeral avulsion of the glenohumeral ligament, chronic HAGL type injury. Correlate with concern for capsular instability. Report Dictated on --- Final --- Dictated: 11/09/2020 3:47 pm Dictating Physician: MD ZHU ANTHONY J Signed Date and Time: 11/09/2020 4:13 pm Signed by: MD ZHU ANTHONY J Transcribed Date and Time: 11/09/2020 3:47 [place], [place] MRI Up Ext Joint w/ Contrast Lefton 11-09-2020 MRI Up Ext Joint w/ Contrast Left Patient Name: LAURYN FINK Magnetic Resonance Imaging ACCESSION EXAM DATE/TIME PROCEDURE ORDERING PROVIDER [id number] 11/09/2020 13:23 EST MRI Up Ext Joint w/ SUZETTE NICHOSL Contrast Left CPT code 13213 Reason For Exam (MRI Up Ext Joint w/ Contrast Left) left shoulder pain post arthrogram Report Examination: MRI arthrogram left shoulder Clinical Indication: left shoulder pain post arthrogram Comparison: None Findings: Multiplanar multisequence MRI images were obtained through the left shoulder after administration of 1 to 200 intra-articular Gadavist gadolinium (<1ml). Images include axial, sagittal, and coronal sequences. Patient deferred abducted externally rotated (ABER) imaging, unable to maintain deposition without subluxation. T2 weighted images demonstrate no osseous edema within the shoulder to suggest fracture or contusion. Examination is mildly degraded by motion artifact. Patient unable to remain completely still during the exam. Normal osseous signal intensity. No avascular necrosis. No evidence of Hill-Sachs or Bankart type injury. Acromioclavicular joint is within normal limits. There is flat type I acromion. No significant inflammation in the subacromial subdeltoid bursa. Long head biceps is normal in morphology and signal without tear or subluxation. Subscapularis is grossly intact, normal in appearance. Supraspinatus and infraspinatus also are intact, normal in morphology and signal. No significant tendinitis. Glenohumeral articular cartilage demonstrates no focal or full thickness defect. There is mild cartilage thinning posteriorly. 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 There is linear Magnetic Resonance Imaging Report tear, slightly jagged and irregular within the superior and posterior superior labrum, SLAP type lesion and age-indeterminate. Superior and middle glenohumeral ligaments are normal. Inferior glenohumeral ligament demonstrates laxity and partial chronic tear at the humeral attachment best seen on series 9 image 13. There is some extravasation of contrast inferiorly. Tear measures approximately 0.6 cm series 7 image 16 with some thinning of the glenohumeral ligament. Impression: 1. Age-indeterminate SLAP tear of the superior and posterior superior glenoid labrum. 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 2. Laxity and thinning within the inferior glenohumeral ligament more posteriorly with focal defect measuring 0.6 cm near the humerus. Finding likely represents remote partial humeral avulsion of the glenohumeral ligament, chronic HAGL type injury. Correlate with concern for capsular instability. Report Dictated on Final Dictated: 11/09/2020 3:47 pm Dictating Physician: MD ZHU ANTHONY J Signed Date and Time: 11/09/2020 4:13 pm Signed by: MD ZHU ANTHONY J Transcribed Date and Time: 11/09/2020 3:47 Normal [facility] RF Arthrogram Aspir Inj Cedric Jt Lefton 11-09-2020 RF Arthrogram Aspir Inj Cedric Jt Left Patient Name: LAURYN FINK Fluoroscopy ACCESSION EXAM DATE/TIME PROCEDURE ORDERING PROVIDER [id number] 11/09/2020 12:49 EST RF Arthrogram Aspir Inj SUZETTE NICHOLS Cedric Jt Left CPT code 90254 [id number] Reason For Exam (RF Arthrogram Aspir Inj Cedric Jt Left) impingement syndrome of left shoulder, left biceps tendonitis Report Examination: Fluoroscopic guided left shoulder arthrogram and gadolinium injection Clinical Indication: Left shoulder pain concern for impingement, left biceps tendinitis Comparison: None Findings: Informed written consent was obtained from the patient after the risks, benefits, and alternatives to diagnostic joint injection were adequately explained and all questions were answered. This was explained by Dr. George Zhu. Patient was placed in supine position. 0.5 percent ropivacaine was used for local anesthesia. Access was then obtained under direct fluoroscopic guidance into the left glenohumeral joint. A solution of 1 to 200 IV gadolinium Magnevist (<1ml), 10 mL of Isovue-200, 3 mL of ropivacaine, and 7 mL of saline was injected to distend the joint space. Total fluoroscopic time 0.5 minutes. Three stored fluoroscopic images obtained. Arthrogram demonstrates no contrast extravasation. There is laxity within the inferior joint capsule. No immediate complications were appreciated. Impression: Status post left glenohumeral joint diagnostic gadolinium injection for subsequent MR arthrography. Some laxity within the inferior joint capsule. No conventional arthrographic evidence of rotator cuff tear. Fluoroscopy Report Report Dictated on Final Dictated: 11/09/2020 3:15 pm Dictating Physician: MD ZHU ANTHONY J Signed Date and Time: 11/09/2020 3:17 pm Signed by: MD ZHU ANTHONY J Transcribed Date and Time: 11/09/2020 3:15 Normal [facility] Vital Signs Date Time Vital Sign Value Performing Clinician Facility 05-14-2023 16:45-0400 Body height 165.1 cm [facility] 05-14-2023 16:45-0400 Body mass index (BMI) [Ratio] 29.6 kg/m2 [facility] 05-14-2023 16:45-0400 Body temperature 97.7 [degF] [facility] 05-14-2023 16:45-0400 Body weight 80.73 kg [facility] 05-14-2023 16:45-0400 Diastolic blood pressure 60 mm[Hg] [facility] 05-14-2023 16:45-0400 Heart rate 62 /min [facility] 05-14-2023 16:45-0400 Respiratory rate 18 /min [facility] 05-14-2023 16:45-0400 SaO2% (BldA) [Mass fraction] 98 % [facility] 05-14-2023 16:45-0400 Systolic blood pressure 130 mm[Hg] [facility] 07-19-2022 12:50-0400 Body temperature 98.91 [degF] Ambrocio Fernie DPM Work Phone: [facility] 05-06-2022 16:53-0400 Body height 165.1 cm [facility] Work Phone: 04-10-2022 18:34-0400 Body height 165.1 cm [facility] Work Phone: 04-10-2022 18:34-0400 Body temperature 97.9 [degF] [facility] Work Phone: 04-10-2022 18:34-0400 Diastolic blood pressure 70 mm[Hg] [facility] Work Phone: 04-10-2022 18:34-0400 Heart rate 101 /min [facility] Work Phone: 04-10-2022 18:34-0400 Respiratory rate 18 /min [facility] Work Phone: 04-10-2022 18:34-0400 SaO2% (BldA) [Mass fraction] 100 % [facility] Work Phone: 04-10-2022 18:34-0400 Systolic blood pressure 118 mm[Hg] [facility] Work Phone: 03-25-2022 08:31-0400 Body temperature 97.81 [degF] Kevin Clinton DPM Work Phone: [facility] 02-11-2022 09:49-0400 Body temperature 98.1 [degF] Kevin Clinton DPM Work Phone: [facility] 01-21-2022 09:25-0400 Body temperature 98.01 [degF] Kevin Clinton DPM Work Phone: [facility] Encounters Encounter Date Encounter Type Care Provider Facility Start: 04-21-2025 ambulatory RANDY Candelario y:[facility] Start: 02-04-2025 ambulatory RANDY Candelario y:[facility] Start: 05-10-2024 End: 05-10-2024 ambulatory Randy Cueva [employer] Facility:[facility] Start: 05-14-2023 End: 05-14-2023 ambulatory [facility] Work Phone: Start: 05-14-2023 End: 05-14-2023 Patient encounter procedure [facility] Spec[facility] Work Phone: Start: 11-15-2022 End: 11-16-2022 ambulatory RANDY CUEVA Facility:[facility] Start: 11-15-2022 End: 11-16-2022 ambulatory RANDY CUEVA Facility:[id number] Start: 07-19-2022 End: 07-19-2022 Patient encounter procedure Ambrocio Lino DPM Work Phone: [facility] Comment on above: Ankle instability, l eft (Primary Dx); Peroneal tendon injury, left, sequela; Sprain of anterior talofibular ligament of left ankle, sequela Start: 05-06-2022 End: 05-06-2022 Patient encounter procedure [facility] Specimen Start: 04-10-2022 End: 04-10-2022 [facility] Start: 03-25-2022 End: 03-25-2022 Patient encounter procedure Kevin Clinton DP Work Phone: [facility] Comment on above: Ankle instability, l eft (Primary Dx); Peroneal tendon injury, left, sequela; Sprain of anterior talofibular ligament of left ankle, sequela Start: 02-11-2022 End: 02-11-2022 Patient encounter procedure Kevin Clinton DPM Work Phone: [facility] Comment on above: Ankle instability, l eft (Primary Dx); Peroneal tendon injury, left, sequela; Sprain of anterior talofibular ligament of left ankle, sequela; Peroneal tendon injury, left, initial encounter; Edema of left ankle Start: 01-21-2022 End: 01-21-2022 Patient encounter procedure Kevin Clinton DPM Work Phone: [facility] Comment on above: Ankle instability, l eft (Primary Dx); Peroneal tendon injury, left, initial encounter; Sprain of anterior talofibular ligament of left ankle, initial encounter Start: 11-09-2020 End: 11-09-2020 Subsequent hospital visit by physician Suzette Nichols Work Phone: [facility] Comment on above: Arrived Start: 02-07-2018 Emergency department patient visit Ewa Howe [facility] Procedures Date Procedure Procedure Detail Performing Clinician Start: 11-09-2020 MRI UPPER EXTREMITY LEFT W CONTRAST Suzette Nichols Work Phone: Start: 11-09-2020 Arthrocentesis aspir &/inj major jt/bursa w/o us Suzette Nichols Work Phone: Plan of Treatment Date Care Activity Detail Author Start: 02-08-2028 DTaP/Tdap/Td vaccine (3 - Td) DTaP/Tdap/Td vaccine (3 - Td) [place] Start: 02-08-2028 Urine microalbumin profile DTAP,TDAP,TD (3 - Td or Tdap) [facility] Start: 06-06-2022 Influenza vaccination [facility] Start: 10-06-2021 DEPRESSION ASSESSMENT [facility] Start: 07-06-2021 COVID-19 VACCINE (3 - Booster for Pfizer series) COVID-19 VACCINE (3 - Booster for Pfizer series) [facility] Start: 03-31-2021 COVID-19 VACCINE (3 - Booster for Pfizer series) COVID-19 VACCINE (3 - Booster for Pfizer series) [facility] Start: 06-06-2020 Influenza vaccination Flu vaccine (# 1) [place], [place] Start: 2018 HPV TESTING HPV TESTING [facility] Start: 08-18-2018 Screening for malign ant neoplasm of cervix Cervical cancer screen [place], [place] Start: 2009 PAP TESTING PAP TESTING [facility] Start: 2006 ANNUAL PCP TEAM PUMP RUNNER DEEPALI DISEASE VISIT ANNUAL PCP TEAM CHRONIC DISEASE VISIT [facility] Start: 2006 HEPATITIS C SCREENING HEPATITIS C SC REENING [facility] Start: 2006 HIV SCREENING HIV SCREENING [facility] Start: 2003 HIV screening HIV screen Christy [place], [place] Start: 2000 Adult depression screening assessment DEPRESSION SCREENING [facility] Start: 1989 Varicella vaccine (1 of 2 - 2-dose childhood series) Varicella vaccine (1 of 2 - 2-dose childhood series) [place], [place] Start: 1988 HEPATITIS B (1 of 3 - 3-dose series) HEPATITIS B (1 of 3 - 3-dose series) [facility] Start: 1988 Hepatitis C screening Hepatitis C sc reen [facility] Immunizations Immunization Date Immunization Notes Care Provider Zehra dill 02-07-2018 tetanus toxoid, redu chuck diphtheria toxoid, and acellular pertussis vaccine, adsorbed Suzette Nichols [facility] 12-22-2014 tetanus toxoid, redu chuck diphtheria toxoid, and acellular pertussis vaccine, adsorbed Kevin Clinton DPTriny Work Phone: [facility] Payers Date Payer Category Payer Private Health Insurance [id number] 2024 Self-pay [id number] 2014 Private Health Insurance [id number] 2008 Private Health Insurance 1988 Unknown [id number] 1988 Unknown [id number] 1988 Unknown [id number] Unknown [id number] Social History Date Type Detail Facility Start: 02-07-2018 End: 05-25-2021 Tobacco smoking status NHIS Never smoker [facility] Start: 02-07-2018 End: 05-25-2021 Tobacco use and exposure Never used [facility] Start: 02-07-2018 End: 07-19-2022 Alcohol intake Current drinker of alcohol (finding) [facility] Start: 02-07-2018 Alcohol Comment occasional/rare [facility] [place] Start: 1990 Sex Assigned At Not on file [place] Start: 01-21-2022 End: 07-19-2022 Alcohol intake [facility] Start: 01-11-2022 End: 07-19-2022 Exposure to SARS-CoV-2 (event) Not sure [facility] Start: 04-10-2022 Tobacco smoking stat us NHIS Unknown if ever smoked [facility] Start: 1988 Sex Assigned At Female W [facility] Medical Equipment Procedure Code Equipment Code Equipment Origin al Text Equipment Identifier Dates [place] [employer] 0 .5 [place] 4 [employer] 22.2mm Suture - [id number] Start: 11-21-2021 [place] [employer] 1 .5 [place] 2 Pa[employer] 26.2mm Suture - [id number] Start: 11-21-2021 [place] [employer] 1 .5 [place] 2 [employer] 26.2mm Suture - [id number] Start: 11-21-2021 Clinical Notes 05-26-2021 to 07-19-2022 Ambrocio Lino DPM - 07/19/2022 1:43 PM Brenden Clinton DPM - 03/25/2022 8:25 AM Brenden Clinton DPM - 02/11/2022 9:32 AM Brenden Clinton DPM - 01/21/2022 10:33 AM EDT Note Date & Type Note Facility 07-19-2022 History of Present illness Narrative Images from the original note were not included. 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 Is fully back to life with no pain/instability/limitation, even played soccer this weekend without issue. Compliant satisfied. Past Medical History ACTIVE PROBLEM LIST Closed Nondisplaced Fracture of Left Talus With Delayed Healing Ankle Instability, Left Peroneal Tendon Injury, Left, Initial Encounter Hypothyroidism Past Surgical History PAST SURGICAL HISTORY Procedure Laterality Date KNEE SURGERY HX Right 2012 Medications Current Outpatient Medications Medication Sig Dispense Refill HYDROcodone-acetaminophen (NORCO) 5-325 mg per tablet Take 1 tablet by mouth every 6 hours as needed for pain. 28 tablet 0 valACYclovir (VALTREX) 500 mg tablet Take 1 tablet by mouth once daily. (Patient not taking: Reported on 11/13/2021 ) Norethindrn A-E Estradiol-Iron 1 mg-20 mcg (24)/75 mg (4) Take by mouth. levothyroxine (SYNTHROID) 100 mcg tablet Take 100 mcg by mouth daily before breakfast. Indications: HYPOTHYROIDISM No current facility-administered medications for this visit. Allergies ALLERGIES Allergen Reactions Amoxicillin Anaphylaxis Penicillins Anaphylaxis Hives and swelling in throat Family History FAMILY HISTORY Problem Relation Age of Onset Hypothyroidism Mother No Known Problems Father Social History Social History Tobacco Use Smoking status: Never Smokeless tobacco: Never Substance Use Topics Alcohol use: Yes Alcohol/week: 1.3 standard drinks Types: 1 Mixed Drinks per week Drug use: No Review of Systems Patient denies fever, chills, nausea, vomiting, diarrhea, calf pain, thigh pain, shortness of breath, chest pain, claudication, burning, paresthesias. OBJECTIVE: General Awake, alert, oriented, in no apparent distress, resting comfortably in exam room chair. Vascular DP palpable RL. PT palpable RL. CFT immediate RL. Digital hair present RL. No edema RL. No varicosities RL. Dermatologic Minimal cicatrix are pain-free. Normal pigmentation, warm, with normal turgor and mobility RL. No ulceration, signs of infection, or overt ischemia RL. Webspaces are clean and dry RL. Musculoskeletal No instability, PTP or with ROM of associate lateral foot/ankle structures L. Muscle strength is full for those examined RL. Muscle tone is normal for those observed RL. No overt spasticity or paralysis. Orthopedic Lower arch height with plantarflexed forefoot RL. With the subtalar joint maximally supinated, the ankle ROM is limited to -10 degrees RL. Mild hallux abduction with flexible digital contractures RL. Remaining joints have grossly full smooth ROM without obvious deformity, crepitus, or instability. Gait Analysis Not performed today. Shoegear Inspection Not performed today. Outside Results None to review today. Labs Hemoglobin (g/dL) Date Value 02/23/2015 10.8 Hematocrit (%) Date Value 02/23/2015 33.7 WBC (k/uL) Date Value 02/23/2015 11.06 Platelet Count (k/uL) Date Value 02/23/2015 200 CMP: No results found for this basename: GLUC,BUN,CREAT,NA,K,CHLOR,CO2,TPRO T,ALB,CA,ALKPHOS,TBILI,AST,ALT Office Radiographs None today. ASSESSMENT: Encounter Diagnosis ICD-10-CM 1. 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 Peroneal tendon injury, left, sequela S86.302S 3. Sprain of anterior talofibular ligament of left ankle, sequela S93.492S PLAN: Reviewed the medical record, specific findings, and collaborative customized plan with patient- all questions were answered. The patient's expectations, preferences, limitations, and personal, professional, recreational activities were taken into account. Discussed etiologies, epidemiology, pathogenesis, clinical manifestations, studies, diagnosis, differential diagnoses, complications, and treatment options. Treatment goals are to minimize pain, maximize function, avoid surgery, and successfully get back to life for the long-term. - Normal shoes and activities without restriction. RTO: PRN Advised patient to contact office immediately if they feel they need to be seen sooner, symptoms intensify or expand, or they have a new issue. Total physician time on the date of this encounter to prepare, review separately obtained history, examine, evaluate, crisis counselor, educate, order medications/tests/procedures, refer, communicate with other healthcare professionals, document clinical information, independently interpret and communicate results, and coordinate care: 26 minutes. Ambrocio Lino, DPTriny, FACFAS, FFPM RCPS([place]) [facility] [address] [place] [address] W [email or web address] O F [email or web address] [email or web address] documented in this encounter [facility] 03-25-2022 Note HNO ID: [id number] Author: Kevin Clinton DPM Service: ? Author Type: Physician Type: Progress Notes Filed: 03/25/2022 9:55 AM Note Text: Podiatric Post-Op Office Visit: DOS: 11/21/2021 POV: 7 Procedure: 1. Peroneal tendon repair, left foot 2. Lateral ankle stabilization, left foot 3. Ankle arthroscopy, left foot HPI: Ms. Lauryn Fink is a 31 year old female who presents today s/p procedures noted above. Patient states she is doing well without pain. Does report some discomfort and swelling after being on her feet for 12 hours for 2 days in a row. Denies any residual pain today. She only has been in the lace up ankle brace when playing sports with her kids. She has been performing range of motion exercises daily. Has noticed significant improvement in mobility and strength in the ankle. Denies any nausea, vomiting, shortness of breath, calf pain, or any other constitutional complaints. Denies any recent injury or trauma. No other pedal complaints. PCP: No primary care provider on file.: [facility] PAST MEDICAL HISTORY Diagnosis Date - Closed nondisplaced fracture of left talus - Hypothyroidism - Knee dislocation right - Thyroid disease : MEDICATIONS Current Outpatient Medications Medication Sig - HYDROcodone-acetaminophen (NORCO) 5-325 mg per tablet Take 1 tablet by mouth every 6 hours as needed for pain. - valACYclovir (VALTREX) 500 mg tablet Take 1 tablet by mouth once daily. (Patient not taking: Reported on 11/13/2021 ) - Norethindrn A-E Estradiol-Iron 1 mg-20 mcg (24)/75 mg (4) Take by mouth. - levothyroxine (SYNTHROID) 100 mcg tablet Take 100 mcg by mouth daily before breakfast. Indications: HYPOTHYROIDISM No current facility-administered medications for this visit. : ALLERGIES Allergen Reactions - Amoxicillin Anaphylaxis - Penicillins Anaphylaxis Hives and swelling in throat : PAST SURGICAL HISTORY Procedure Laterality Date - KNEE SURGERY HX Right 2013 FAMILY HISTORY Problem Relation Age of Onset - Hypothyroidism Mother - No Known Problems Father : Social History Tobacco Use - Smoking status: Never Smoker - Smokeless tobacco: Never Used Substance Use Topics - Alcohol use: Yes Alcohol/week: 1.3 standard drinks Types: 1 Mixed Drinks per week - Drug use: No Physical Exam: Patient is alert and oriented x 3 in NAD LMP 11/02/2021 (Exact Date) FOCUSED LEFT LOWER EXTREMITY EXAMINATION: Ambulates to clinic in shoe with lace up ankle brace Vascular: Palpable Dorsalis Pedis and Posterior Tibial Pulses Capillary Fill time < 3 seconds to digits 1-5 Skin temperature warm to warm tibial tuberosity to the digits No edema noted Neurological: Epicritic sensation is intact. Dermatological: Skin appears well hydrated and supple. good color, texture, turgor. Incision are well coapted without evidence of dehiscence. Resolved erythema and edema. No acute signs of infection noted. Musculoskeletal/Orthopaedic: No tenderness to palpation to the lateral ankle and peroneal tendons. No pain on calf squeeze. Negative anterior drawer. Stable upon stressing lateral ankle ligament complex. Encounter Diagnosis ICD-10-CM 1. 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 Peroneal tendon injury, left, sequela S86.302S 3. Sprain of anterior talofibular ligament of left ankle, sequela S93.492S Plan: - Post-op visit - Instructed patient to gradually transition out of wearing lace up ankle brace when performing high activity. Advised patient to be cautious and wear the lace up ankle brace if she is performing activity on uneven grounds for the first time. - Discussed continued ROM exercises including performing ABCs to increase strength/ROM. Discussed physical therapy. Patient defers at this time. - Return in 4 months or sooner for any new or worsening symptoms. Sally Delgado DPM PGY2 I have seen and evaluated the patient and discussed the case with the resident physician. I agree with the assessment and plan as documented in the resident?s note. Kevin Clinton DPM [facility] 03-25-2022 History of Present illness Narrative Podiatric Post-Op Office Visit: DOS: 11/21/2021 POV: 7 Procedure: 1. Peroneal tendon repair, left foot 2. Lateral ankle stabilization, left foot 3. Ankle arthroscopy, left foot HPI: Ms. Lauryn Fink is a 31 year old female who presents today s/p procedures noted above. Patient states she is doing well without pain. Does report some discomfort and swelling after being on her feet for 12 hours for 2 days in a row. Denies any residual pain today. She only has been in the lace up ankle brace when playing sports with her kids. She has been performing range of motion exercises daily. Has noticed significant improvement in mobility and strength in the ankle. Denies any nausea, vomiting, shortness of breath, calf pain, or any other constitutional complaints. Denies any recent injury or trauma. No other pedal complaints. PCP: No primary care provider on file.: [facility] PAST MEDICAL HISTORY Diagnosis Date Closed nondisplaced fracture of left talus Hypothyroidism Knee dislocation right Thyroid disease : MEDICATIONS Current Outpatient Medications Medication Sig HYDROcodone-acetaminophen (NORCO) 5-325 mg per tablet Take 1 tablet by mouth every 6 hours as needed for pain. valACYclovir (VALTREX) 500 mg tablet Take 1 tablet by mouth once daily. (Patient not taking: Reported on 11/13/2021 ) Norethindrn A-E Estradiol-Iron 1 mg-20 mcg (24)/75 mg (4) Take by mouth. levothyroxine (SYNTHROID) 100 mcg tablet Take 100 mcg by mouth daily before breakfast. Indications: HYPOTHYROIDISM No current facility-administered medications for this visit. : ALLERGIES Allergen Reactions Amoxicillin Anaphylaxis Penicillins Anaphylaxis Hives and swelling in throat : PAST SURGICAL HISTORY Procedure Laterality Date KNEE SURGERY HX Right 2013 FAMILY HISTORY Problem Relation Age of Onset Hypothyroidism Mother No Known Problems Father : Social History Tobacco Use Smoking status: Never Smoker Smokeless tobacco: Never Used Substance Use Topics Alcohol use: Yes Alcohol/week: 1.3 standard drinks Types: 1 Mixed Drinks per week Drug use: No Physical Exam: Patient is alert and oriented x 3 in NAD LMP 11/02/2021 (Exact Date) FOCUSED LEFT LOWER EXTREMITY EXAMINATION: Ambulates to clinic in shoe with lace up ankle brace Vascular: Palpable Dorsalis Pedis and Posterior Tibial Pulses Capillary Fill time < 3 seconds to digits 1-5 Skin temperature warm to warm tibial tuberosity to the digits No edema noted Neurological: Epicritic sensation is intact. Dermatological: Skin appears well hydrated and supple. good color, texture, turgor. Incision are well coapted without evidence of dehiscence. Resolved erythema and edema. No acute signs of infection noted. Musculoskeletal/Orthopaedic: No tenderness to palpation to the lateral ankle and peroneal tendons. No pain on calf squeeze. Negative anterior drawer. Stable upon stressing lateral ankle ligament complex. Encounter Diagnosis ICD-10-CM 1. 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 Peroneal tendon injury, left, sequela S86.302S 3. Sprain of anterior talofibular ligament of left ankle, sequela S93.492S Plan: - Post-op visit - Instructed patient to gradually transition out of wearing lace up ankle brace when performing high activity. Advised patient to be cautious and wear the lace up ankle brace if she is performing activity on uneven grounds for the first time. - Discussed continued ROM exercises including performing ABCs to increase strength/ROM. Discussed physical therapy. Patient defers at this time. - Return in 4 months or sooner for any new or worsening symptoms. Sally Delgado DPM PGY2 I have seen and evaluated the patient and discussed the case with the resident physician. I agree with the assessment and plan as documented in the resident s note. Kevin Clinton DPM documented in this encounter [facility] 02-11-2022 Note HNO ID: [id number] Author: Kevin Clinton DPM Service: ? Author Type: Physician Type: Progress Notes Filed: 02/11/2022 12:23 PM Note Text: Podiatric Post-Op Office Visit: DOS: 11/21/2021 POV: 6 POD: 83 Procedure: 1. Peroneal tendon repair, left foot 2. Lateral ankle stabilization, left foot 3. Ankle arthroscopy, left foot HPI: Ms. Lauryn Fink is a 31 year old female who presents today s/p procedures noted above. Patient states she is doing well and has been in no pain with weight bearing in the lace up ankle brace and supportive shoes. Has been performing range of motion exercises daily. Has noticed significant improvement in mobility and strength in the ankle. Denies any nausea, vomiting, shortness of breath, calf pain, or any other constitutional complaints. Denies any recent injury or trauma. No other pedal complaints. PCP: No primary care provider on file.: [facility] PAST MEDICAL HISTORY Diagnosis Date - Closed nondisplaced fracture of left talus - Hypothyroidism - Knee dislocation right - Thyroid disease : MEDICATIONS Current Outpatient Medications Medication Sig - HYDROcodone-acetaminophen (NORCO) 5-325 mg per tablet Take 1 tablet by mouth every 6 hours as needed for pain. - valACYclovir (VALTREX) 500 mg tablet Take 1 tablet by mouth once daily. (Patient not taking: Reported on 11/13/2021 ) - Norethindrn A-E Estradiol-Iron 1 mg-20 mcg (24)/75 mg (4) Take by mouth. - levothyroxine (SYNTHROID) 100 mcg tablet Take 100 mcg by mouth daily before breakfast. Indications: HYPOTHYROIDISM No current facility-administered medications for this visit. : ALLERGIES Allergen Reactions - Amoxicillin Anaphylaxis - Penicillins Anaphylaxis Hives and swelling in throat : PAST SURGICAL HISTORY Procedure Laterality Date - KNEE SURGERY HX Right 2012 FAMILY HISTORY Problem Relation Age of Onset - Hypothyroidism Mother - No Known Problems Father : Social History Tobacco Use - Smoking status: Never Smoker - Smokeless tobacco: Never Used Substance Use Topics - Alcohol use: Yes Alcohol/week: 1.3 standard drinks Types: 1 Mixed Drinks per week - Drug use: No Physical Exam: Patient is alert and oriented x 3 in NAD Temp 36.7 ?C (98.1 ?F) LMP 11/02/2021 (Exact Date) FOCUSED LEFT LOWER EXTREMITY EXAMINATION: Ambulates to clinic in shoe with lace up ankle brace Vascular: Palpable Dorsalis Pedis and Posterior Tibial Pulses Capillary Fill time < 3 seconds to digits 1-5 Skin temperature warm to warm tibial tuberosity to the digits No edema noted Neurological: Epicritic sensation is intact. Dermatological: Skin appears well hydrated and supple. good color, texture, turgor. Incision are well coapted without evidence of dehiscence. Resolved erythema and edema. No acute signs of infection noted. Musculoskeletal/Orthopaedic: No tenderness to palpation to the lateral ankle and peroneal tendons. No pain on calf squeeze. Negative anterior drawer. Stable upon stressing lateral ankle ligament complex. Encounter Diagnosis ICD-10-CM 1. 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 Peroneal tendon injury, left, sequela S86.302S 3. Sprain of anterior talofibular ligament of left ankle, sequela S93.492S Plan: - Post-op visit - Instructed patient to only wear lace up ankle brace when performing high activity. OK to discontinue wearing the brace when performing light activity. - Discussed continued ROM exercises including performing ABCs to increase strength/ROM. Discussed physical therapy. Patient defers at this time. - OK to perform high impact activities. - Return in 3 week or sooner for any new or worsening symptoms. Sally Delgado DPM PGY2 I have seen and evaluated the patient and discussed the case with the resident physician. I agree with the assessment and plan as documented in the resident?s note. Kevin Clinton DPM [facility] 02-11-2022 History of Present illness Narrative Podiatric Post-Op Office Visit: DOS: 11/21/2021 POV: 6 POD: 83 Procedure: 1. Peroneal tendon repair, left foot 2. Lateral ankle stabilization, left foot 3. Ankle arthroscopy, left foot HPI: Ms. Lauryn Fink is a 31 year old female who presents today s/p procedures noted above. Patient states she is doing well and has been in no pain with weight bearing in the lace up ankle brace and supportive shoes. Has been performing range of motion exercises daily. Has noticed significant improvement in mobility and strength in the ankle. Denies any nausea, vomiting, shortness of breath, calf pain, or any other constitutional complaints. Denies any recent injury or trauma. No other pedal complaints. PCP: No primary care provider on file.: [facility] PAST MEDICAL HISTORY Diagnosis Date Closed nondisplaced fracture of left talus Hypothyroidism Knee dislocation right Thyroid disease : MEDICATIONS Current Outpatient Medications Medication Sig HYDROcodone-acetaminophen (NORCO) 5-325 mg per tablet Take 1 tablet by mouth every 6 hours as needed for pain. valACYclovir (VALTREX) 500 mg tablet Take 1 tablet by mouth once daily. (Patient not taking: Reported on 11/13/2021 ) Norethindrn A-E Estradiol-Iron 1 mg-20 mcg (24)/75 mg (4) Take by mouth. levothyroxine (SYNTHROID) 100 mcg tablet Take 100 mcg by mouth daily before breakfast. Indications: HYPOTHYROIDISM No current facility-administered medications for this visit. : ALLERGIES Allergen Reactions Amoxicillin Anaphylaxis Penicillins Anaphylaxis Hives and swelling in throat : PAST SURGICAL HISTORY Procedure Laterality Date KNEE SURGERY HX Right 2013 FAMILY HISTORY Problem Relation Age of Onset Hypothyroidism Mother No Known Problems Father : Social History Tobacco Use Smoking status: Never Smoker Smokeless tobacco: Never Used Substance Use Topics Alcohol use: Yes Alcohol/week: 1.3 standard drinks Types: 1 Mixed Drinks per week Drug use: No Physical Exam: Patient is alert and oriented x 3 in NAD Temp 36.7 C (98.1 F) LMP 11/02/2021 (Exact Date) FOCUSED LEFT LOWER EXTREMITY EXAMINATION: Ambulates to clinic in shoe with lace up ankle brace Vascular: Palpable Dorsalis Pedis and Posterior Tibial Pulses Capillary Fill time < 3 seconds to digits 1-5 Skin temperature warm to warm tibial tuberosity to the digits No edema noted Neurological: Epicritic sensation is intact. Dermatological: Skin appears well hydrated and supple. good color, texture, turgor. Incision are well coapted without evidence of dehiscence. Resolved erythema and edema. No acute signs of infection noted. Musculoskeletal/Orthopaedic: No tenderness to palpation to the lateral ankle and peroneal tendons. No pain on calf squeeze. Negative anterior drawer. Stable upon stressing lateral ankle ligament complex. Encounter Diagnosis ICD-10-CM 1. 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 Peroneal tendon injury, left, sequela S86.302S 3. Sprain of anterior talofibular ligament of left ankle, sequela S93.492S Plan: - Post-op visit - Instructed patient to only wear lace up ankle brace when performing high activity. OK to discontinue wearing the brace when performing light activity. - Discussed continued ROM exercises including performing ABCs to increase strength/ROM. Discussed physical therapy. Patient defers at this time. - OK to perform high impact activities. - Return in 3 week or sooner for any new or worsening symptoms. Sally Delgado DPM PGY2 I have seen and evaluated the patient and discussed the case with the resident physician. I agree with the assessment and plan as documented in the resident s note. Kevin Clinton DPM documented in this encounter [facility] 01-21-2022 Note HNO ID: [id number] Author: Kevin Clinton DPM Service: ? Author Type: Physician Type: Progress Notes Filed: 01/21/2022 11:07 AM Note Text: Podiatric Post-Op Office Visit: DOS: 11/21/2021 POV: 5 POD: 62 Procedure: 1. Peroneal tendon repair, left foot 2. Lateral ankle stabilization, left foot 3. Ankle arthroscopy, left foot HPI: Ms. Lauryn Fink is a 31 year old female who presents today s/p procedures noted above. Patient states she is doing well. She has transitioned to weight bearing in lace up ankle brace and supportive shoes. Has noticed some achy pain towards the end of the day. States she has noticed some swelling and if she elevates the pain goes away. She has been doing ROM exercises as recommended. . Denies any nausea, vomiting, shortness of breath, calf pain, or any other constitutional complaints. Denies any recent injury or trauma. No other pedal complaints. PCP: No primary care provider on file.: [facility] PAST MEDICAL HISTORY Diagnosis Date - Closed nondisplaced fracture of left talus - Hypothyroidism - Knee dislocation right - Thyroid disease : MEDICATIONS Current Outpatient Medications Medication Sig - HYDROcodone-acetaminophen (NORCO) 5-325 mg per tablet Take 1 tablet by mouth every 6 hours as needed for pain. - valACYclovir (VALTREX) 500 mg tablet Take 1 tablet by mouth once daily. (Patient not taking: Reported on 11/13/2021 ) - Norethindrn A-E Estradiol-Iron 1 mg-20 mcg (24)/75 mg (4) Take by mouth. - levothyroxine (SYNTHROID) 100 mcg tablet Take 100 mcg by mouth daily before breakfast. Indications: HYPOTHYROIDISM No current facility-administered medications for this visit. : ALLERGIES Allergen Reactions - Amoxicillin Anaphylaxis - Penicillins Anaphylaxis Hives and swelling in throat : PAST SURGICAL HISTORY Procedure Laterality Date - KNEE SURGERY HX Right 2013 FAMILY HISTORY Problem Relation Age of Onset - Hypothyroidism Mother - No Known Problems Father : Social History Tobacco Use - Smoking status: Never Smoker - Smokeless tobacco: Never Used Substance Use Topics - Alcohol use: Yes Alcohol/week: 1.3 standard drinks Types: 1 Mixed Drinks per week - Drug use: No Physical Exam: Patient is alert and oriented x 3 in NAD Temp 36.7 ?C (98 ?F) LMP 11/02/2021 (Exact Date) FOCUSED LEFT LOWER EXTREMITY EXAMINATION: Ambulates to clinic in [facility] boot Vascular: Palpable Dorsalis Pedis and Posterior Tibial Pulses Capillary Fill time < 3 seconds to digits 1-5 Skin temperature warm to warm tibial tuberosity to the digits No edema noted Neurological: Epicritic sensation is intact. Dermatological: Skin appears well hydrated and supple. good color, texture, turgor. Incision are well coapted without evidence of dehiscence. Resolved erythema and edema. No acute signs of infection noted. Musculoskeletal/Orthopaedic: No tenderness to palpation to the lateral ankle and peroneal tendons. No pain on calf squeeze. Negative anterior drawer. Stable upon stressing lateral ankle ligament complex. Encounter Diagnosis ICD-10-CM 1. 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 Peroneal tendon injury, left, initial encounter S86.302A 3. Sprain of anterior talofibular ligament of left ankle, initial encounter S93.492A Plan: - Post-op visit - Continue lace up ankle brace in supportive shoes. - Discussed continued ROM exercises including performing ABCs to increase strength/ROM. - Can start low impact activities (biking, elliptical). No high impact activities. - Return in 3 week or sooner for any new or worsening symptoms. Kevin Clinton DPM [facility] 01-21-2022 History of Present illness Narrative Podiatric Post-Op Office Visit: DOS: 11/21/2021 POV: 5 POD: 62 Procedure: 1. Peroneal tendon repair, left foot 2. Lateral ankle stabilization, left foot 3. Ankle arthroscopy, left foot HPI: Ms. Lauryn Fink is a 31 year old female who presents today s/p procedures noted above. Patient states she is doing well. She has transitioned to weight bearing in lace up ankle brace and supportive shoes. Has noticed some achy pain towards the end of the day. States she has noticed some swelling and if she elevates the pain goes away. She has been doing ROM exercises as recommended. . Denies any nausea, vomiting, shortness of breath, calf pain, or any other constitutional complaints. Denies any recent injury or trauma. No other pedal complaints. PCP: No primary care provider on file.: [facility] PAST MEDICAL HISTORY Diagnosis Date Closed nondisplaced fracture of left talus Hypothyroidism Knee dislocation right Thyroid disease : MEDICATIONS Current Outpatient Medications Medication Sig HYDROcodone-acetaminophen (NORCO) 5-325 mg per tablet Take 1 tablet by mouth every 6 hours as needed for pain. valACYclovir (VALTREX) 500 mg tablet Take 1 tablet by mouth once daily. (Patient not taking: Reported on 11/13/2021 ) Norethindrn A-E Estradiol-Iron 1 mg-20 mcg (24)/75 mg (4) Take by mouth. levothyroxine (SYNTHROID) 100 mcg tablet Take 100 mcg by mouth daily before breakfast. Indications: HYPOTHYROIDISM No current facility-administered medications for this visit. : ALLERGIES Allergen Reactions Amoxicillin Anaphylaxis Penicillins Anaphylaxis Hives and swelling in throat : PAST SURGICAL HISTORY Procedure Laterality Date KNEE SURGERY HX Right 2013 FAMILY HISTORY Problem Relation Age of Onset Hypothyroidism Mother No Known Problems Father : Social History Tobacco Use Smoking status: Never Smoker Smokeless tobacco: Never Used Substance Use Topics Alcohol use: Yes Alcohol/week: 1.3 standard drinks Types: 1 Mixed Drinks per week Drug use: No Physical Exam: Patient is alert and oriented x 3 in NAD Temp 36.7 C (98 F) LMP 11/02/2021 (Exact Date) FOCUSED LEFT LOWER EXTREMITY EXAMINATION: Ambulates to clinic in [facility] boot Vascular: Palpable Dorsalis Pedis and Posterior Tibial Pulses Capillary Fill time < 3 seconds to digits 1-5 Skin temperature warm to warm tibial tuberosity to the digits No edema noted Neurological: Epicritic sensation is intact. Dermatological: Skin appears well hydrated and supple. good color, texture, turgor. Incision are well coapted without evidence of dehiscence. Resolved erythema and edema. No acute signs of infection noted. Musculoskeletal/Orthopaedic: No tenderness to palpation to the lateral ankle and peroneal tendons. No pain on calf squeeze. Negative anterior drawer. Stable upon stressing lateral ankle ligament complex. Encounter Diagnosis ICD-10-CM 1. 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 Peroneal tendon injury, left, initial encounter S86.302A 3. Sprain of anterior talofibular ligament of left ankle, initial encounter S93.492A Plan: - Post-op visit - Continue lace up ankle brace in supportive shoes. - Discussed continued ROM exercises including performing ABCs to increase strength/ROM. - Can start low impact activities (biking, elliptical). No high impact activities. - Return in 3 week or sooner for any new or worsening symptoms. Kevin Clinton DPM documented in this encounter [facility] 12-31-2021 Note HNO ID: [id number] Author: Kevin Clinton DPM Service: ? Author Type: Physician Type: Progress Notes Filed: 01/01/2022 7:23 AM Note Text: Podiatric Post-Op Office Visit: DOS: 11/21/2021 POV: 4 POD: 40 Procedure: 1. Peroneal tendon repair, left foot 2. Lateral ankle stabilization, left foot 3. Ankle arthroscopy, left foot HPI: Ms. Lauryn Fink is a 31 year old female who presents today s/p procedures noted above. Patient states she is doing well. She has transitioned to weight bearing in the CAM boot. Endorses she has applied weight outside of the boot when getting into the shower. Denies pain, but is afraid to put full weight without any support at this time. Endorses she feels ready to transition out of the CAM boot. Denies any nausea, vomiting, shortness of breath, calf pain, or any other constitutional complaints. Denies any recent injury or trauma. No other pedal complaints. PCP: No primary care provider on file.: [facility] PAST MEDICAL HISTORY Diagnosis Date - Closed nondisplaced fracture of left talus - Hypothyroidism - Knee dislocation right - Thyroid disease : MEDICATIONS Current Outpatient Medications Medication Sig - HYDROcodone-acetaminophen (NORCO) 5-325 mg per tablet Take 1 tablet by mouth every 6 hours as needed for pain. - valACYclovir (VALTREX) 500 mg tablet Take 1 tablet by mouth once daily. (Patient not taking: Reported on 11/13/2021 ) - Norethindrn A-E Estradiol-Iron 1 mg-20 mcg (24)/75 mg (4) Take by mouth. - levothyroxine (SYNTHROID) 100 mcg tablet Take 100 mcg by mouth daily before breakfast. Indications: HYPOTHYROIDISM No current facility-administered medications for this visit. : ALLERGIES Allergen Reactions - Amoxicillin Anaphylaxis - Penicillins Anaphylaxis Hives and swelling in throat : PAST SURGICAL HISTORY Procedure Laterality Date - KNEE SURGERY HX Right 2012 FAMILY HISTORY Problem Relation Age of Onset - Hypothyroidism Mother - No Known Problems Father : Social History Tobacco Use - Smoking status: Never Smoker - Smokeless tobacco: Never Used Substance Use Topics - Alcohol use: Yes Alcohol/week: 1.3 standard drinks Types: 1 Mixed Drinks per week - Drug use: No Physical Exam: Patient is alert and oriented x 3 in NAD Temp 36.4 ?C (97.5 ?F) LMP 11/02/2021 (Exact Date) FOCUSED LEFT LOWER EXTREMITY EXAMINATION: Ambulates to clinic in [facility] boot Vascular: Palpable Dorsalis Pedis and Posterior Tibial Pulses Capillary Fill time < 3 seconds to digits 1-5 Skin temperature warm to warm tibial tuberosity to the digits No edema noted Neurological: Epicritic sensation is intact. Dermatological: Skin appears well hydrated and supple. good color, texture, turgor. Incision are well coapted without evidence of dehiscence. Resolved erythema and edema. No acute signs of infection noted. Musculoskeletal/Orthopaedic: No tenderness to palpation to the lateral ankle and peroneal tendons. No pain on calf squeeze. Negative anterior drawer. Stable upon stressing lateral ankle ligament complex. Encounter Diagnosis ICD-10-CM 1. 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 Peroneal tendon injury, left, initial encounter S86.302A 3. Sprain of anterior talofibular ligament of left ankle, initial encounter S93.492A 4. Closed nondisplaced fracture of left talus with delayed healing, unspecified fracture morphology, subsequent encounter S92.102G 5. Peroneal tendon tear, left, initial encounter S86.312A 6. Edema of left ankle M25.472 Plan: - Post-op visit - Transition out of the CAM boot into lace up ankle brace at this time - Discussed continued ROM exercises including performing ABCs to increase strength/ROM. - Discussed and demonstrated cross tissue massage with use of scar cream - Return in 3 week or sooner for any new or worsening symptoms. Sally Delgado DPM PGY2 I have seen and evaluated the patient and discussed the case with the resident physician. I agree with the assessment and plan as documented in the resident?s note. Kevin Clinton DPM [facility] 12-31-2021 Note HNO ID: [id number] Author: Nya Sanchez Service: ? Author Type: ? Type: Progress Notes Filed: 01/01/2022 7:23 AM Note Text: Post op 11/21/21 [facility] 12-10-2021 Note HNO ID: [id number] Author: Kevin Clinton DPM Service: ? Author Type: Physician Type: Progress Notes Filed: 12/10/2021 2:39 PM Note Text: Podiatric Post-Op Office Visit: DOS: 11/21/2021 POV: 3 POD: 19 Procedure: 1. Peroneal tendon repair, left foot 2. Lateral ankle stabilization, left foot 3. Ankle arthroscopy, left foot HPI: Ms. Lauryn Fink is a 31 year old female who presents today s/p procedures noted above. Patient states she is doing well. Pain is well controlled with Percocet. She has been taking aspirin for DVT prophylaxis. She has been non-weightbearing to the left lower extremity with use of posterior splint and crutches. Denies any nausea, vomiting, shortness of breath, calf pain, or any other constitutional complaints. Denies any recent injury or trauma. No other pedal complaints. PCP: No primary care provider on file.: [facility] PAST MEDICAL HISTORY Diagnosis Date - Closed nondisplaced fracture of left talus - Hypothyroidism - Knee dislocation right - Thyroid disease : MEDICATIONS Current Outpatient Medications Medication Sig - HYDROcodone-acetaminophen (NORCO) 5-325 mg per tablet Take 1 tablet by mouth every 6 hours as needed for pain. - valACYclovir (VALTREX) 500 mg tablet Take 1 tablet by mouth once daily. (Patient not taking: Reported on 11/13/2021 ) - Norethindrn A-E Estradiol-Iron 1 mg-20 mcg (24)/75 mg (4) Take by mouth. - levothyroxine (SYNTHROID) 100 mcg tablet Take 100 mcg by mouth daily before breakfast. Indications: HYPOTHYROIDISM No current facility-administered medications for this visit. : ALLERGIES Allergen Reactions - Amoxicillin Anaphylaxis - Penicillins Anaphylaxis Hives and swelling in throat : PAST SURGICAL HISTORY Procedure Laterality Date - KNEE SURGERY HX Right 2013 FAMILY HISTORY Problem Relation Age of Onset - Hypothyroidism Mother - No Known Problems Father : Social History Tobacco Use - Smoking status: Never Smoker - Smokeless tobacco: Never Used Substance Use Topics - Alcohol use: Yes Alcohol/week: 1.3 standard drinks Types: 1 Mixed Drinks per week - Drug use: No Physical Exam: Patient is alert and oriented x 3 in NAD Temp 36.4 ?C (97.6 ?F) LMP 11/02/2021 (Exact Date) FOCUSED LEFT LOWER EXTREMITY EXAMINATION: Ambulates to clinic in posterior splint and crutches. Vascular: Palpable Dorsalis Pedis and Posterior Tibial Pulses Capillary Fill time < 3 seconds to digits 1-5 Skin temperature warm to warm tibial tuberosity to the digits Mild edema noted to the right first MTPJ and left ankle. Neurological: Epicritic sensation is intact. Dermatological: Skin appears well hydrated and supple. good color, texture, turgor. Incision are well coapted without evidence of dehiscence. Sutures are intact. Natalie-incisional erythema and edema noted consistent with post-operative states. No acute signs of infection noted. Ecchymosis to lateral foot. Musculoskeletal/Orthopaedic: There is mild tenderness to palpation to the lateral ankle and peroneal tendons. No pain on calf squeeze. Encounter Diagnosis ICD-10-CM 1. 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 Peroneal tendon injury, left, initial encounter S86.302A 3. Sprain of anterior talofibular ligament of left ankle, initial encounter S93.492A Plan: - Post-op visit - Dressings removed. - Sutures were removed, can start showering tmrw - Transition to NWB in the fracture boot for one more week and then gradually transitioning to weight bearing in the fracture boot as tolerated. Discussed ROM exercises - Continue pain medication as needed/tolerated - Return in 3 week or sooner for any new or worsening symptoms. Kevin Clinton DPM [facility] 12-03-2021 Note HNO ID: [id number] Author: Kevin Clinton DPM Service: ? Author Type: Physician Type: Progress Notes Filed: 12/03/2021 12:31 PM Note Text: Podiatric Post-Op Office Visit: DOS: 11/21/2021 POV: 2 POD: 12 Procedure: 1. Peroneal tendon repair, left foot 2. Lateral ankle stabilization, left foot 3. Ankle arthroscopy, left foot HPI: Ms. Lauryn Fink is a 31 year old female who presents today s/p procedures noted above. Patient states she is doing well. Pain is well controlled with Percocet. She has been taking aspirin for DVT prophylaxis. She has been non-weightbearing to the left lower extremity with use of posterior splint and crutches. She does admit to catching her splint with her knee walker yesterday and is concerned she popped a stitch. States pain improved since then. Denies any nausea, vomiting, shortness of breath, calf pain, or any other constitutional complaints. Denies any recent injury or trauma. No other pedal complaints. PCP: No primary care provider on file.: [facility] PAST MEDICAL HISTORY Diagnosis Date - Closed nondisplaced fracture of left talus - Hypothyroidism - Knee dislocation right - Thyroid disease : MEDICATIONS Current Outpatient Medications Medication Sig - rivaroxaban (XARELTO) 10 mg tablet Take 1 tablet by mouth once daily for 14 days. - valACYclovir (VALTREX) 500 mg tablet Take 1 tablet by mouth once daily. (Patient not taking: Reported on 11/13/2021 ) - Norethindrn A-E Estradiol-Iron 1 mg-20 mcg (24)/75 mg (4) Take by mouth. - levothyroxine (SYNTHROID) 100 mcg tablet Take 100 mcg by mouth daily before breakfast. Indications: HYPOTHYROIDISM No current facility-administered medications for this visit. : ALLERGIES Allergen Reactions - Amoxicillin Anaphylaxis - Penicillins Anaphylaxis Hives and swelling in throat : PAST SURGICAL HISTORY Procedure Laterality Date - KNEE SURGERY HX Right 2012 FAMILY HISTORY Problem Relation Age of Onset - Hypothyroidism Mother - No Known Problems Father : Social History Tobacco Use - Smoking status: Never Smoker - Smokeless tobacco: Never Used Substance Use Topics - Alcohol use: Yes Alcohol/week: 1.3 standard drinks Types: 1 Mixed Drinks per week - Drug use: No Physical Exam: Patient is alert and oriented x 3 in NAD LMP 11/02/2021 (Exact Date) FOCUSED LEFT LOWER EXTREMITY EXAMINATION: Ambulates to clinic in posterior splint and crutches. Vascular: Palpable Dorsalis Pedis and Posterior Tibial Pulses Capillary Fill time < 3 seconds to digits 1-5 Skin temperature warm to warm tibial tuberosity to the digits Mild edema noted to the right first MTPJ and left ankle. Neurological: Epicritic sensation is intact. Dermatological: Skin appears well hydrated and supple. good color, texture, turgor. Incision are well coapted without evidence of dehiscence. Sutures are intact. Natalie-incisional erythema and edema noted consistent with post-operative states. No acute signs of infection noted. Ecchymosis to lateral foot. Musculoskeletal/Orthopaedic: There is mild tenderness to palpation to the lateral ankle and peroneal tendons. No pain on calf squeeze. Encounter Diagnosis ICD-10-CM 1. 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 Peroneal tendon injury, left, initial encounter S86.302A 3. Sprain of anterior talofibular ligament of left ankle, initial encounter S93.492A Plan: - Post-op visit - Dressings removed. - Modified Frankie's compression dressing applied. Redressed with xeroform, 4x4, ABD, Webril, and GREGG bandage. Posterior splint with foot and ankle in slight dorsiflexion and eversion placed. - Continue non-weightbearing to the left lower extremity with use of short leg splint - continue Aspirin 325 mg BID. Discussed risks and signs of DVT/PE and to seek medical attention if experiencing these symptoms. - Return in 1 week for possible removal of sutures or sooner for any new or worsening symptoms. Kevin Clinton DPM [facility] 11-27-2021 Note HNO ID: [id number] Author: Kevin Clinton DPM Service: ? Author Type: Physician Type: Progress Notes Filed: 11/27/2021 12:17 PM Note Text: Podiatric Post-Op Office Visit: DOS: 11/21/2021 POV: 1 POD: 6 Procedure: 1. Peroneal tendon repair, left foot 2. Lateral ankle stabilization, left foot 3. Ankle arthroscopy, left foot HPI: Ms. Lauryn Fink is a 31 year old female who presents today s/p procedures noted above. Patient states she is doing well. Pain is well controlled with Percocet. Patient was prescribed Xarelto for DVT prophylaxis but noted that she was unable to obtain it due to cost. Patient denies Aspirin use. She has been non-weightbearing to the left lower extremity with use of posterior splint and crutches. Denies any nausea, vomiting, shortness of breath, calf pain, or any other constitutional complaints. Denies any recent injury or trauma. No other pedal complaints. PCP: No primary care provider on file.: [facility] PAST MEDICAL HISTORY Diagnosis Date - Closed nondisplaced fracture of left talus - Hypothyroidism - Knee dislocation right - Thyroid disease : MEDICATIONS Current Outpatient Medications Medication Sig - rivaroxaban (XARELTO) 10 mg tablet Take 1 tablet by mouth once daily for 14 days. - valACYclovir (VALTREX) 500 mg tablet Take 1 tablet by mouth once daily. (Patient not taking: Reported on 11/13/2021 ) - Norethindrn A-E Estradiol-Iron 1 mg-20 mcg (24)/75 mg (4) Take by mouth. - levothyroxine (SYNTHROID) 100 mcg tablet Take 100 mcg by mouth daily before breakfast. Indications: HYPOTHYROIDISM No current facility-administered medications for this visit. : ALLERGIES Allergen Reactions - Amoxicillin Anaphylaxis - Penicillins Anaphylaxis Hives and swelling in throat : PAST SURGICAL HISTORY Procedure Laterality Date - KNEE SURGERY HX Right 2012 FAMILY HISTORY Problem Relation Age of Onset - Hypothyroidism Mother - No Known Problems Father : Social History Tobacco Use - Smoking status: Never Smoker - Smokeless tobacco: Never Used Substance Use Topics - Alcohol use: Yes Alcohol/week: 1.3 standard drinks Types: 1 Mixed Drinks per week - Drug use: No Physical Exam: Patient is alert and oriented x 3 in NAD Temp 36.2 ?C (97.1 ?F) LMP 11/02/2021 (Exact Date) FOCUSED LEFT LOWER EXTREMITY EXAMINATION: Ambulates to clinic in posterior splint and crutches. Vascular: Palpable Dorsalis Pedis and Posterior Tibial Pulses Capillary Fill time < 3 seconds to digits 1-5 Skin temperature warm to warm tibial tuberosity to the digits Mild edema noted to the right first MTPJ and left ankle. Neurological: Epicritic sensation is intact. Dermatological: Skin appears well hydrated and supple. good color, texture, turgor. Incision are well coapted without evidence of dehiscence. Sutures are intact. Natalie-incisional erythema and edema noted consistent with post-operative states. No acute signs of infection noted. Ecchymosis to lateral foot. Musculoskeletal/Orthopaedic: There is mild tenderness to palpation to the lateral ankle and peroneal tendons. No pain on calf squeeze. Encounter Diagnosis ICD-10-CM 1. 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 Peroneal tendon injury, left, initial encounter S86.302A 3. Sprain of anterior talofibular ligament of left ankle, initial encounter S93.492A Plan: - Post-op visit - Dressings removed. - Modified Frankie's compression dressing applied. Redressed with xeroform, 4x4, ABD, Webril, and GREGG bandage. Posterior splint with foot and ankle in slight dorsiflexion and eversion placed. - Continue Percocet for pain as needed. - Continue non-weightbearing to the left lower extremity with use of CAM boot and assistive device. - Recommend starting Aspirin 325 mg BID. Discussed risks and signs of DVT/PE and to seek medical attention if experiencing these symptoms. - Return in 1 week for possible removal of sutures or sooner for any new or worsening symptoms. Jorge Collins DPM PGY-3 I have seen and evaluated the patient and discussed the case with the resident physician. I agree with the assessment and plan as documented in the resident?s note. Kevin Clinton DPM [facility] 11-21-2021 Note HNO ID: [id number] Author: Kylie Jarrett APRN.GYM ATTENDANT Service: Anesthesiology Author Type: Nurse Tank Assembler Type: Anesthesia Procedure Notes Filed: 11/21/2021 8:04 AM Note Text: ANESTHESIOLOGY PROCEDURE NOTE Airway General Information Procedure Start Time/Medication Administration: 11/21/2021 7:57 AM Patient location during procedure: OR Timeout Performed Pre-procedure: timeout performed Consent Obtained: Yes Patient identity confirmed: patient sedated or unresponsive Staffing GYM ATTENDANT: Kylie Jarrett APRN.GYM ATTENDANT Performed by: anesthesiologist Indications and Patient Condition Preoxygenated: yes Patient position: sniffing Manual In-Line Stabilization: No Difficult Mask: No Indications for airway management: anesthesia anesthesia circuit Method: asleep Cricoid Pressure: No Airway Accessory: LMA Final Airway Details Final airway type: supraglottic airway Number of attempts at approach: 2 Ventilation between attempts: BVM Final Supraglottic Airway: i-gel Size 4 Seal Adequate: yes Failed airway: no Unrecognized esophageal intubation: no Airway not difficult SIGNATURE: Cindi Jarrett APRN.GYM ATTENDANT PATIENT NAME: Lauryn Fink DATE: November 21, 2021 TIME: 8:03 AM CSN: [id number] [facility] 11-21-2021 Note HNO ID: [id number] Author: Nirav Jones MD Service: Anesthesiology Author Type: Anesthesiologist Type: Anesthesia Procedure Notes Filed: 11/21/2021 7:40 AM Note Text: ANESTHESIOLOGY PROCEDURE NOTE Peripheral Nerve Block General Information Procedure Start Time/Medication Administration: 11/21/2021 7:14 AM Procedure End time: 11/21/2021 7:15 AM Patient location during procedure: pre-op Timeout Performed Pre-procedure: timeout performed Consent Obtained: Yes Patient identity confirmed: arm band, 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 Reason for block: post-op pain management/at surgeon's request Staffing Anesthesiologist: Nirav Jones MD Performed by: anesthesiologist Preparation Sterility Preparation: hand hygiene performed prior to procedure, sterile gloves, drapes, and procedure tray, surgical cap used, mask used, sterile drape used during line insertion, skin prep agent completely dried prior to procedure Site Prep: Chloraprep Pre-Procedure Neuro Exam Location: LLE Sensory: intact Motor: intact Procedure Details Patient Position: supine Monitoring: Pulse OX, EKG and NIBP Block Type Lower Extremity: distal femoral (adductor canal) Laterality: left Injection Technique: single-shot Ultrasound Guided: Yes Image in Chart: yes Local Infiltration: Yes Needle Needle Type: echogenic Needle Gauge: 21 G Needle Length: 10 cm Needle Localization: ultrasound Assessment Injection assessment: negative aspiration, no paresthesia on injection, incremental injection and local visualized surrounding nerve on ultrasound Paresthesia: none Post-Procedure Neuro Exam Expected Regional Anesthesia: Yes Medications Administered Dexamethasone sodium phosphate injection (DECADRON), 4 mg ropivacaine (PF) 2 mg/mL (0.2 %) injection (NAROPIN), 10 mL SIGNATURE: Nirav Jones MD PATIENT NAME: Lauryn Fink DATE: November 21, 2021 TIME: 7:39 AM CSN: [id number] [facility] 11-21-2021 Note HNO ID: [id number] Author: Nirav Jones MD Service: Anesthesiology Author Type: Anesthesiologist Type: Anesthesia Procedure Notes Filed: 11/21/2021 7:39 AM Note Text: ANESTHESIOLOGY PROCEDURE NOTE Peripheral Nerve Block General Information Procedure Start Time/Medication Administration: 11/21/2021 7:05 AM Procedure End time: 11/21/2021 7:13 AM Patient location during procedure: pre-op Timeout Performed Pre-procedure: timeout performed (709) Consent Obtained: Yes Patient identity confirmed: arm band, 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 Reason for block: post-op pain management/at surgeon's request Staffing Anesthesiologist: Nirav Jones MD Performed by: anesthesiologist Preparation Sterility Preparation: hand hygiene performed prior to procedure, sterile gloves, drapes, and procedure tray, surgical cap used, mask used, sterile drape used during line insertion, skin prep agent completely dried prior to procedure Site Prep: Chloraprep Pre-Procedure Neuro Exam Location: LLE Sensory: intact Motor: intact Procedure Details Patient Position: right lateral decubitus Monitoring: Pulse OX, NIBP and EKG Block Type Lower Extremity: sciatic Approach: popliteal fossa and lateral Laterality: left Injection Technique: single-shot Ultrasound Guided: Yes Image in Chart: yes Local Infiltration: Yes Needle Needle Type: echogenic Needle Gauge: 21 G Needle Length: 10 cm Needle Localization: ultrasound Assessment Injection assessment: negative aspiration, no paresthesia on injection, incremental injection and local visualized surrounding nerve on ultrasound Paresthesia: none Post-Procedure Neuro Exam Expected Regional Anesthesia: Yes Medications Administered Dexamethasone sodium phosphate injection (DECADRON), 6 mg midazolam (PF) injection (VERSED), 2 mg ropivacaine (PF) 5 mg/mL (0.5 %) injection (NAROPIN), 20 mL SIGNATURE: Nirav Jones MD PATIENT NAME: Lauryn Fink DATE: November 21, 2021 TIME: 7:38 AM CSN: [id number] [facility] 10-10-2021 Note HNO ID: [id number] Author: Ellie Cuello DPM Service: ? Author Type: Physician Type: Progress Notes Filed: 11/05/2021 1:07 PM Note Text: Podiatric Office Visit: Chief Complaint: Left ankle pain s/p injury 03/2021 HPI: Ms. Lauryn Fink is a 31 year old female presents for surgical consultation following chronic left ankle pain. Patient has had a recent MRI. She locates the majority of the pain to the lateral left ankle. States it is tender especially with weightbearing activities. She has attempted multiple conservative care options including bracing, boot immobilization, physical therapy, anti-inflammatories, rest, ice with no improvement. She is frustrated as the injury occurred over 6 months ago and she feels she is no better. No other pedal complaints. PCP: No primary care provider on file.: [facility] PAST MEDICAL HISTORY Diagnosis Date - Thyroid disease : MEDICATIONS Current Outpatient Medications Medication Sig - valACYclovir (VALTREX) 500 mg tablet Take 1 tablet by mouth once daily. - meloxicam (MOBIC) 15 mg tablet TAKE 1 TABLET BY MOUTH EVERY DAY - Norethindrn A-E Estradiol-Iron 1 mg-20 mcg (24)/75 mg (4) Take by mouth. - methylPREDNISolone (MEDROL, PHAN,) 4 mg Dose-Pack Use as directed - oxyCODONE-acetaminophen (PERCOCET) 5-325 mg tablet Take 1-2 tablets by mouth every 4 hours as needed. - ibuprofen (MOTRIN) 600 mg tablet Take 1 tablet by mouth four times daily as needed. - levothyroxine (SYNTHROID) 100 mcg tablet Take 100 mcg by mouth daily before breakfast. Indications: HYPOTHYROIDISM - PNV NO.115/IRON FUMARATE/FA ( 19 ORAL) Take by mouth. No current facility-administered medications for this visit. : ALLERGIES Allergen Reactions - Amoxicillin Anaphylaxis - Penicillins Anaphylaxis Hives and swelling in throat : History reviewed. No pertinent surgical history. History reviewed. No pertinent family history.: Social History Tobacco Use - Smoking status: Never Smoker - Smokeless tobacco: Never Used Substance Use Topics - Alcohol use: No - Drug use: No Physical Exam: Patient is alert and oriented x 3 in NAD Temp 36.4 ?C (97.5 ?F) Vascular: Palpable Dorsalis Pedis and Posterior Tibial Pulses B/L Capillary Fill time < 3 seconds to digits 1-5 B/L Skin temperature warm to warm tibial tuberosity to the digits B/L Mild edema noted to the right first MTPJ and left ankle. Neurological: Intact light touch/epicritic sensation B/L Dermatological: Skin appears well hydrated and supple. good color, texture, turgor. No open lesions present. Webspaces clean and dry 1-4 b/l. Nails 1-5 b/l appear normal. No ecchymosis noted. Musculoskeletal/Orthopaedic: +5/5 muscle strength Dorsiflexion, Plantarflexion, Inversion, Eversion B/L ROM of the 1st MTPJ is full without pain or crepitus on the right. ROM of the 1st MPTJ if limited with pain with plantarflexory and dorsiflexory end ROM on the left. ROM of the MTJ/STJ is full without pain or crepitus b/l. Ankle joint ROM is decreased B/L. No calf tenderness noted on the left. No high fibular tenderness no on the left. No anterior tibia tenderness on palpation on the left. No pain along the Achilles tendon and its insertion. No pain with calcaneal squeeze. Mild tenderness to the medial malleolus and distal tibial. No anterior ankle tenderness. Tenderness to palpation along the ATFL, lateral malleolus and peroneal tendon. No evidence of subluxing peroneal tendon. Pain with active eversion.. Positive anterior drawer on the left lower extremity. Negative talar tilt. Peroneal tendons are intact. No pain to palpation to fifth metatarsal. Encounter Diagnosis ICD-10-CM 1. Closed nondisplaced fracture of left talus with delayed healing, unspecified fracture morphology, subsequent encounter S92.102G 2. Ankle instability, left M25.372 3. Peroneal tendon injury, left, initial encounter S86.302A Plan: - Office Visit - Etiology and treatment options were discussed with the patient. - Reviewed the results of the recent MRI which shows a split thickness tear of the peroneal tendon, sprain of the anterior inferior tibiofibular ligament as well as cartilage defect involving the tibial plafond. Full read can be found in the patient's chart. We discussed continued conservative care versus surgical intervention. At this point she states she has been dealing with this for 6 months and has exhausted conservative care. She would like to proceed with surgical intervention. -Plan for Brostrom, peroneal tendon repair, and ankle arthroscopy left ankle All risks, benefits, nature and alternatives to surgery were discussed in detail. Those include but are not limted to: continued or worsened pain, over correction, under correction, need for additional and/or revisional surgery, malunion, nonunion, vascular compromise, nerve injury, DVT, PE, infection, painful or unsightly scar, amputation, d (more content not included)... [facility] 09-21-2021 Note HNO ID: [id number] Author: Kevin Clinton DPM Service: ? Author Type: Physician Type: Progress Notes Filed: 09/24/2021 7:58 AM Note Text: Podiatric Office Visit: Chief Complaint: Left ankle pain s/p injury 03/2021 HPI: Ms. Lauryn Fink is a 31 year old female presents for follow-up left ankle pain. Patient has had a recent MRI and is waiting to go over the results. She locates the majority of the pain to the lateral left ankle. States it is tender especially with weightbearing activities. She has attempted multiple conservative care options including bracing, boot immobilization, physical therapy, anti-inflammatories, rest, ice with no improvement. She is frustrated as the injury occurred over 5 months ago and she feels she is no better. No other pedal complaints. PCP: No primary care provider on file.: [facility] PAST MEDICAL HISTORY Diagnosis Date - Thyroid disease : MEDICATIONS Current Outpatient Medications Medication Sig - valACYclovir (VALTREX) 500 mg tablet Take 1 tablet by mouth once daily. - meloxicam (MOBIC) 15 mg tablet TAKE 1 TABLET BY MOUTH EVERY DAY - Norethindrn A-E Estradiol-Iron 1 mg-20 mcg (24)/75 mg (4) Take by mouth. - methylPREDNISolone (MEDROL, PHAN,) 4 mg Dose-Pack Use as directed - oxyCODONE-acetaminophen (PERCOCET) 5-325 mg tablet Take 1-2 tablets by mouth every 4 hours as needed. - ibuprofen (MOTRIN) 600 mg tablet Take 1 tablet by mouth four times daily as needed. - levothyroxine (SYNTHROID) 100 mcg tablet Take 100 mcg by mouth daily before breakfast. Indications: HYPOTHYROIDISM - PNV NO.115/IRON FUMARATE/FA ( 19 ORAL) Take by mouth. No current facility-administered medications for this visit. : ALLERGIES Allergen Reactions - Amoxicillin Anaphylaxis - Penicillins Anaphylaxis Hives and swelling in throat : History reviewed. No pertinent surgical history. History reviewed. No pertinent family history.: Social History Tobacco Use - Smoking status: Never Smoker - Smokeless tobacco: Never Used Substance Use Topics - Alcohol use: No - Drug use: No Physical Exam: Patient is alert and oriented x 3 in NAD Temp 36.6 ?C (97.8 ?F) Vascular: Palpable Dorsalis Pedis and Posterior Tibial Pulses B/L Capillary Fill time < 3 seconds to digits 1-5 B/L Skin temperature warm to warm tibial tuberosity to the digits B/L Mild edema noted to the right first MTPJ and left ankle. Neurological: Intact light touch/epicritic sensation B/L Dermatological: Skin appears well hydrated and supple. good color, texture, turgor. No open lesions present. Webspaces clean and dry 1-4 b/l. Nails 1-5 b/l appear normal. No ecchymosis noted. Musculoskeletal/Orthopaedic: +5/5 muscle strength Dorsiflexion, Plantarflexion, Inversion, Eversion B/L ROM of the 1st MTPJ is full without pain or crepitus on the right. ROM of the 1st MPTJ if limited with pain with plantarflexory and dorsiflexory end ROM on the left. ROM of the MTJ/STJ is full without pain or crepitus b/l. Ankle joint ROM is decreased B/L. No calf tenderness noted on the left. No high fibular tenderness no on the left. No anterior tibia tenderness on palpation on the left. No pain along the Achilles tendon and its insertion. No pain with calcaneal squeeze. Mild tenderness to the medial malleolus and distal tibial. No anterior ankle tenderness. Tenderness to palpation along the ATFL, lateral malleolus and peroneal tendon. No evidence of subluxing peroneal tendon. Pain with active eversion.. Positive anterior drawer on the left lower extremity. Negative talar tilt. Peroneal tendons are intact. No pain to palpation to fifth metatarsal. Encounter Diagnosis ICD-10-CM 1. Sprain of anterior talofibular ligament of left ankle, initial encounter S93.492A 2. Peroneal tendon tear, left, initial encounter S86.312A 3. Edema of left ankle M25.472 4. Acute left ankle pain M25.572 5. Synovitis of left ankle M65.9 Plan: - Office Visit - Etiology and treatment options were discussed with the patient. -Reviewed the results of the recent MRI which shows a split thickness tear of the peroneal tendon, sprain of the anterior inferior tibiofibular ligament as well as cartilage defect involving the tibial plafond. Full read can be found in the patient's chart. We discussed continued conservative care versus surgical intervention. At this point she states she has been dealing with this for 6 months and has exhausted conservative care. She would like to proceed with surgical intervention. Given this I will refer her to my partner Dr. Cuello as she may benefit from an ankle scope as well as peroneal repair. Patient expressed understanding and scheduled follow-up with Dr. Cuello for next week. Kevin Clinton DPM FACFAS [facility] 09-09-2021 Note HNO ID: [id number] Author: ASHLEY Lopez Service: Radiology Author Type: Jigger Operator Type: Progress Notes Filed: 09/09/2021 2:02 PM Note Text: Radiology Service Progress Note PATIENT NAME: Lauryn Fink DATE OF SERVICE: September 09, 2021 TIME: 2:01 PM PATIENT IDENTITY VERIFICATION COMPLETED USING TWO (2) IDENTIFIERS: Name and Date of confirmed by patient verbally and Name and Date of confirmed by identification band. FALL SCREENING: Has the patient had 2 falls in the last year or 1 fall with injury or currently using an Ambulatory Assistive Device (Walker, Cane, Wheelchair, Crutches, etc.)? No PATIENT GENDER DATA: Female. status: : No status: NO. PATIENT RELEVANT IMPLANT DATA REVIEWED: Yes RADIOLOGY DEPARTMENT: MR; Exam(s) Completed: Lower MSK: Ankle/Hind Foot, left PERIPHERAL IV DATA: Not applicable SIGNED BY: ASHLEY Lopez September 09, 2021 2:01 PM [facility] 08-10-2021 Note HNO ID: [id number] Author: Kevin Clinton DPM Service: ? Author Type: Physician Type: Progress Notes Filed: 08/13/2021 9:40 AM Note Text: Podiatric Office Visit: Chief Complaint: Left ankle pain s/p injury 03/2021 HPI: Ms. Lauryn Fink is a 30 year old female presents for follow-up left ankle pain. Patient relates minimal improvement of symptoms since the last visit. She still locates the pain to the left lateral anterior and central aspect of the ankle joint. She states she has been wearing the fracture boot but has seen no relief with it. She states the pain can be as high as a 7 out of 10 and sharp in nature. She does not believe she has seen improvement since the initial injury. No other pedal complaints. PCP: No primary care provider on file.: [facility] PAST MEDICAL HISTORY Diagnosis Date - Thyroid disease : MEDICATIONS Current Outpatient Medications Medication Sig - meloxicam (MOBIC) 15 mg tablet TAKE 1 TABLET BY MOUTH EVERY DAY - Norethindrn A-E Estradiol-Iron 1 mg-20 mcg (24)/75 mg (4) Take by mouth. - methylPREDNISolone (MEDROL, PHAN,) 4 mg Dose-Pack Use as directed - oxyCODONE-acetaminophen (PERCOCET) 5-325 mg tablet Take 1-2 tablets by mouth every 4 hours as needed. - ibuprofen (MOTRIN) 600 mg tablet Take 1 tablet by mouth four times daily as needed. - levothyroxine (SYNTHROID) 100 mcg tablet Take 100 mcg by mouth daily before breakfast. Indications: HYPOTHYROIDISM - PNV NO.115/IRON FUMARATE/FA ( 19 ORAL) Take by mouth. No current facility-administered medications for this visit. : ALLERGIES Allergen Reactions - Amoxicillin Anaphylaxis - Penicillins Anaphylaxis Hives and swelling in throat : History reviewed. No pertinent surgical history. History reviewed. No pertinent family history.: Social History Tobacco Use - Smoking status: Never Smoker - Smokeless tobacco: Never Used Substance Use Topics - Alcohol use: No - Drug use: No Physical Exam: Patient is alert and oriented x 3 in NAD Temp 36.6 ?C (97.8 ?F) Vascular: Palpable Dorsalis Pedis and Posterior Tibial Pulses B/L Capillary Fill time < 3 seconds to digits 1-5 B/L Skin temperature warm to warm tibial tuberosity to the digits B/L Mild edema noted to the right first MTPJ and left ankle. Neurological: Intact light touch/epicritic sensation B/L Dermatological: Skin appears well hydrated and supple. good color, texture, turgor. No open lesions present. Webspaces clean and dry 1-4 b/l. Nails 1-5 b/l appear normal. No ecchymosis noted. Musculoskeletal/Orthopaedic: +5/5 muscle strength Dorsiflexion, Plantarflexion, Inversion, Eversion B/L ROM of the 1st MTPJ is full without pain or crepitus on the right. ROM of the 1st MPTJ if limited with pain with plantarflexory and dorsiflexory end ROM on the left. ROM of the MTJ/STJ is full without pain or crepitus b/l. Ankle joint ROM is decreased B/L. No calf tenderness noted on the left. No high fibular tenderness no on the left. No anterior tibia tenderness on palpation on the left. No pain along the Achilles tendon and its insertion. No pain with calcaneal squeeze. Mild tenderness to the medial malleolus and distal tibial. No anterior ankle tenderness. Tenderness to palpation along the ATFL and lateral malleolus. Positive anterior drawer on the left lower extremity. Negative talar tilt. Peroneal tendons are intact. No pain to palpation to fifth metatarsal. Radiographs: xrays three views of the left ankle were ordered and reviewed. No increase in soft tissue density or swelling. No obvious fractures or dislocations. All joints appear well aligned. No evidence of osseous tumors, erosions or periosteal reactions. Encounter Diagnosis ICD-10-CM 1. Sprain of anterior talofibular ligament of left ankle, initial encounter S93.492A 2. Edema of left ankle M25.472 3. Acute left ankle pain M25.572 MRI ANKLE WO IVCON LT Plan: - Office Visit - Etiology and treatment options were discussed with the patient. - Discussed with patient continue treatment for left ankle pain. Given the minimal improvement of symptoms despite extensive conservative care including immobilization in a fracture boot, physical therapy, NSAIDs, bracing, rest and ice will recommend a MRI for further evaluation of the left ankle. This is to rule out potential osteochondral defect as well as ligament tear. In the meantime she can continue the lace up ankle brace and low impact activities. Continue icing and anti-inflammatories. Return to clinic after the MRI to go over the results and further treatment. Kevin Clinton DPM FACFAS [facility] 07-13-2021 Note HNO ID: [id number] Author: Kevin Clinton DPM Service: ? Author Type: Physician Type: Progress Notes Filed: 07/16/2021 7:49 AM Note Text: Podiatric Office Visit: Chief Complaint: Left ankle pain and right foot pain s/p injury 03/2021 HPI: Ms. Lauryn Fink is a 30 year old female presents for follow-up left ankle pain and right foot pain after sustaining an injury around 03/2021. Patient originally fell on a porch which caused her to roll her left ankle and land wrong on her right foot. Reports no pain to the right foot at this time, except for occasionally. Patient states her left ankle pain is unchanged since the last visit. Treatment thus far has consisted of medrol dose pack, mobic daily, lace up ankle brace, and most recently 3 sessions of physical therapy. Relates she is unable to perform full recommended exercises - currently using lowest resistance band and performing only 1 set due to significant pain/weakness. She still has pain to the anterior lateral aspect of the ankle. She notices this mostly with extreme motions. No other pedal complaints. PCP: No primary care provider on file.: [facility] PAST MEDICAL HISTORY Diagnosis Date - Thyroid disease : MEDICATIONS Current Outpatient Medications Medication Sig - Norethindrn A-E Estradiol-Iron 1 mg-20 mcg (24)/75 mg (4) Take by mouth. - methylPREDNISolone (MEDROL, PHAN,) 4 mg Dose-Pack Use as directed - meloxicam (MOBIC) 15 mg tablet Take 1 tablet by mouth once daily. - oxyCODONE-acetaminophen (PERCOCET) 5-325 mg tablet Take 1-2 tablets by mouth every 4 hours as needed. - ibuprofen (MOTRIN) 600 mg tablet Take 1 tablet by mouth four times daily as needed. - levothyroxine (SYNTHROID) 100 mcg tablet Take 100 mcg by mouth daily before breakfast. Indications: HYPOTHYROIDISM - PNV NO.115/IRON FUMARATE/FA ( 19 ORAL) Take by mouth. No current facility-administered medications for this visit. : ALLERGIES Allergen Reactions - Amoxicillin Anaphylaxis - Penicillins Anaphylaxis Hives and swelling in throat : History reviewed. No pertinent surgical history. History reviewed. No pertinent family history.: Social History Tobacco Use - Smoking status: Never Smoker - Smokeless tobacco: Never Used Substance Use Topics - Alcohol use: No - Drug use: No Physical Exam: Patient is alert and oriented x 3 in NAD Temp 36.9 ?C (98.5 ?F) Vascular: Palpable Dorsalis Pedis and Posterior Tibial Pulses B/L Capillary Fill time < 3 seconds to digits 1-5 B/L Skin temperature warm to warm tibial tuberosity to the digits B/L Mild edema noted to the right first MTPJ and left ankle. Neurological: Intact light touch/epicritic sensation B/L Dermatological: Skin appears well hydrated and supple. good color, texture, turgor. No open lesions present. Webspaces clean and dry 1-4 b/l. Nails 1-5 b/l appear normal. No ecchymosis noted. Musculoskeletal/Orthopaedic: +5/5 muscle strength Dorsiflexion, Plantarflexion, Inversion, Eversion B/L ROM of the 1st MTPJ is full without pain or crepitus on the right. ROM of the 1st MPTJ if limited with pain with plantarflexory and dorsiflexory end ROM on the left. ROM of the MTJ/STJ is full without pain or crepitus b/l. Ankle joint ROM is decreased B/L. No calf tenderness noted on the left. No high fibular tenderness no on the left. No anterior tibia tenderness on palpation on the left. No pain along the Achilles tendon and its insertion. No pain with calcaneal squeeze. Mild tenderness to the medial malleolus and distal tibial. No anterior ankle tenderness. Tenderness to palpation along the ATFL and lateral malleolus. Positive anterior drawer on the left lower extremity. Negative talar tilt. Peroneal tendons are intact. No pain to palpation to fifth metatarsal. Encounter Diagnosis ICD-10-CM 1. Sprain of anterior talofibular ligament of left ankle, initial encounter S93.492A 2. Edema of left ankle M25.472 3. Acute left ankle pain M25.572 4. Sprain of right foot, initial encounter S93.601A 5. Pain in right foot M79.671 Plan: - Office Visit - Etiology and treatment options were discussed with the patient. - Given no improvement to left ankle pain, recommend immobilization of left ankle in fracture boot for at least 2-3 weeks to allow the ligaments to heal. - Instructed patient to wear boot when weight bearing at all times. Advised her to take the boot off to perform ROM exercises to left ankle and to remove when sleeping. - Continue mobic as needed - May wear carbon fiber insert to right foot as needed. - Discussed taking a break from PT to allow ligaments to heal. May reconsider PT following - May consider MRI if no improvement after period of immobilization to further evaluate ligaments, articular cartilage, and possibility of OCD of the talus. - RTC in 2 weeks for recheck or sooner for any new or worsening symptoms. aSlly Delgado DPM PG (more content not included)... [facility] 06-15-2021 Note HNO ID: [id number] Author: Kevin Clinton DPM Service: ? Author Type: Physician Type: Progress Notes Filed: 06/15/2021 9:41 AM Note Text: Podiatric Office Visit: Chief Complaint: Left ankle pain, right foot pain s/p injury HPI: Ms. Lauryn Fink is a 30 year old female presents for follow-up left ankle pain and right foot pain. Patient states her left ankle pain is unchanged since the last visit. She has been wearing the lace up ankle brace and taking anti-inflammatories as recommended. She still has pain to the anterior lateral aspect of the ankle. She notices this mostly with extreme motions. She still has some pain to the right first MTP joint. She only mostly notices this if someone steps on her otherwise it does feel better. PCP: No primary care provider on file.: [facility] PAST MEDICAL HISTORY Diagnosis Date - Thyroid disease : MEDICATIONS Current Outpatient Medications Medication Sig - Norethindrn A-E Estradiol-Iron 1 mg-20 mcg (24)/75 mg (4) Take by mouth. - methylPREDNISolone (MEDROL, PHAN,) 4 mg Dose-Pack Use as directed - meloxicam (MOBIC) 15 mg tablet Take 1 tablet by mouth once daily. - oxyCODONE-acetaminophen (PERCOCET) 5-325 mg tablet Take 1-2 tablets by mouth every 4 hours as needed. - ibuprofen (MOTRIN) 600 mg tablet Take 1 tablet by mouth four times daily as needed. - levothyroxine (SYNTHROID) 100 mcg tablet Take 100 mcg by mouth daily before breakfast. Indications: HYPOTHYROIDISM - PNV NO.115/IRON FUMARATE/FA ( 19 ORAL) Take by mouth. No current facility-administered medications for this visit. : ALLERGIES Allergen Reactions - Amoxicillin Anaphylaxis - Penicillins Anaphylaxis Hives and swelling in throat : History reviewed. No pertinent surgical history. History reviewed. No pertinent family history.: Social History Tobacco Use - Smoking status: Never Smoker - Smokeless tobacco: Never Used Substance Use Topics - Alcohol use: No - Drug use: No Physical Exam: Patient is alert and oriented x 3 in NAD Temp 36.2 ?C (97.2 ?F) Vascular: Palpable Dorsalis Pedis and Posterior Tibial Pulses B/L Capillary Fill time < 3 seconds to digits 1-5 B/L Skin temperature warm to warm tibial tuberosity to the digits B/L Mild edema noted to the right first MTPJ and left ankle. Neurological: Intact light touch/epicritic sensation B/L Dermatological: Skin appears well hydrated and supple. good color, texture, turgor. No open lesions present. Webspaces clean and dry 1-4 b/l. Nails 1-5 b/l appear normal. No ecchymosis noted. Musculoskeletal/Orthopaedic: +5/5 muscle strength Dorsiflexion, Plantarflexion, Inversion, Eversion B/L ROM of the 1st MTPJ is full without pain or crepitus on the right. ROM of the 1st MPTJ if limited with pain with plantarflexory and dorsiflexory end ROM on the left. ROM of the MTJ/STJ is full without pain or crepitus b/l. Ankle joint ROM is decreased B/L. No calf tenderness noted on the left. No high fibular tenderness no on the left. No anterior tibia tenderness on palpation on the left. No pain along the Achilles tendon and its insertion. No pain with calcaneal squeeze. Mild tenderness to the medial malleolus and distal tibial. No anterior ankle tenderness. Tenderness to palpation along the ATFL and lateral malleolus. Positive anterior drawer on the left lower extremity. Negative talar tilt. Peroneal tendons are intact. No pain to palpation to fifth metatarsal. Encounter Diagnosis ICD-10-CM 1. Sprain of anterior talofibular ligament of left ankle, initial encounter S93.492A CONSULT TO PHYSICAL THERAPY 2. Edema of left ankle M25.472 3. Acute left ankle pain M25.572 4. Sprain of right foot, initial encounter S93.601A 5. Pain in right foot M79.671 Plan: - Office Visit - Etiology and treatment options were discussed with the patient. Explained conservative treatment with the patient. - Continue mobic - Continue lace up ankle brace - Encouraged ROM exercises to left ankle. - Continue carbon fiber insert of right foot. - Referral placed for PT - RTC in 4 weeks for recheck or sooner for any new or worsening symptoms. Kevin Clinton DPM FACFAS [facility] 05-26-2021 Note HNO ID: [id number] Author: Kevin Clinton DPM Service: ? Author Type: Physician Type: Progress Notes Filed: 05/27/2021 8:59 PM Note Text: Initial Podiatric Office Visit: Chief Complaint: Left ankle pain, right foot pain s/p injury HPI: Ms. Lauryn Fink is a 30 year old female with PMH indicated below presents to clinic complaining of left ankle pain and right foot pain s/p fall x 2 months ago. Patient states to have fallen while on her parent's porch, causing her to roll her left ankle and land on her right foot. Localizes her pain to the outside of her left ankle and to her right great toe. Patient states that since they injury, pain has remained unchanged. States pain to her left ankle is exacerbated especially with direct pressure. Reports her daughter had accidentally kicked her left ankle x 2 days ago. She has taken [id number] analgesics with minimal relief of her symptoms. Denies any other pedal complaints. PCP: No primary care provider on file.: [facility] PAST MEDICAL HISTORY Diagnosis Date - Thyroid disease : MEDICATIONS Current Outpatient Medications Medication Sig - Norethindrn A-E Estradiol-Iron 1 mg-20 mcg (24)/75 mg (4) Take by mouth. - methylPREDNISolone (MEDROL, PHAN,) 4 mg Dose-Pack Use as directed - meloxicam (MOBIC) 15 mg tablet Take 1 tablet by mouth once daily. - oxyCODONE-acetaminophen (PERCOCET) 5-325 mg tablet Take 1-2 tablets by mouth every 4 hours as needed. - ibuprofen (MOTRIN) 600 mg tablet Take 1 tablet by mouth four times daily as needed. - levothyroxine (SYNTHROID) 100 mcg tablet Take 100 mcg by mouth daily before breakfast. Indications: HYPOTHYROIDISM - PNV NO.115/IRON FUMARATE/FA ( 19 ORAL) Take by mouth. No current facility-administered medications for this visit. : ALLERGIES Allergen Reactions - Amoxicillin Anaphylaxis - Penicillins Anaphylaxis Hives and swelling in throat : History reviewed. No pertinent surgical history. History reviewed. No pertinent family history.: Social History Tobacco Use - Smoking status: Never Smoker - Smokeless tobacco: Never Used Substance Use Topics - Alcohol use: No - Drug use: No Physical Exam: Patient is alert and oriented x 3 in NAD Temp 36.3 ?C (97.4 ?F) Vascular: Palpable Dorsalis Pedis and Posterior Tibial Pulses B/L Capillary Fill time < 3 seconds to digits 1-5 B/L Skin temperature warm to warm tibial tuberosity to the digits B/L Mild edema noted to the right first MTPJ and left ankle. Neurological: Intact light touch/epicritic sensation B/L Dermatological: Skin appears well hydrated and supple. good color, texture, turgor. No open lesions present. Webspaces clean and dry 1-4 b/l. Nails 1-5 b/l appear normal. No ecchymosis noted. Musculoskeletal/Orthopaedic: +5/5 muscle strength Dorsiflexion, Plantarflexion, Inversion, Eversion B/L ROM of the 1st MTPJ is full without pain or crepitus on the right. ROM of the 1st MPTJ if limited with pain with plantarflexory and dorsiflexory end ROM on the left. ROM of the MTJ/STJ is full without pain or crepitus b/l. Ankle joint ROM is decreased B/L. No calf tenderness noted on the left. No high fibular tenderness no on the left. No anterior tibia tenderness on palpation on the left. No pain along the Achilles tendon and its insertion. No pain with calcaneal squeeze. Mild tenderness to the medial malleolus and distal tibial. No anterior ankle tenderness. Tenderness to palpation along the ATFL and lateral malleolus. Positive anterior drawer on the left lower extremity. Negative talar tilt. Peroneal tendons are intact. No pain to palpation to fifth metatarsal. Radiographs: (05/25/2021) 3 weightbearing views of the right foot (AP, MO, Lateral) and 3 weightbearing views of the left ankle (AP, Mortise, Lateral) were obtained and reviewed. No acute fracture or dislocation noted. No degenerative changes noted to the right first metatarsophalangeal joint. Left ankle mortise is maintained. No medial clear space widening. No soft tissue gas appreciated. No osteoblastic or osteolytic lesions noted. Assessment: This is a 30 year old female who presents with left ankle sprain and right tuft toe injury. Plan: - Initial Office Visit - Etiology and treatment options were discussed with the patient. Discussed with the patient that her left ankle symptoms are related to an ATFL injury. Also discussed her right great toe pain is related to a tuft toe injury. Explained conservative treatment with the patient. - XR of the right foot and left ankle were obtained and reviewed. - RX Medrol dose pack. - RX Mobic. Instructed patient to complete medrol prior to starting Mobic. - Fitted and dispensed patient with lace-up ankle brace to the left. - Encouraged ROM exercises to left ankle. - Recommended carbon fiber insert of right foot. Literature provided. - RTC in 3 weeks for recheck or sooner for any new or (more content not included)... [facility] Evaluation note Diagnosis Ankle instability, left- Primary Peroneal tendon injury, left, initial encounter Sprain of anterior talofibular ligament of left ankle, [facility]le [facility], left- Primary Peroneal tendon injury, left, sequela Sprain of anterior talofibular ligament of left ankle, sequela Peroneal tendon injury, left, initial encounter Edema of left ankle [facility] Ankle instability, left- Primary Peroneal tendon injury, left, sequela Sprain of anterior talofibular ligament of left ankle, sequela [facility] Diagnosis Onset Date Resolution Status Herpes simplex acute Hypothyroidism acute [facility] Work Phone: Evaluation note* Diagnosis Onset Date Resolution Status Herpes simplex acute Hypothyroidism acute Hypothyroidism [facility] Work Phone: Summary Purpose Family History No Family History Records Found Relationship Condition Age at Onset Recorded Date/T hannah Not Specified Disorder of thyroid Unknown Asthma Unknown Advance Directives No Advanced Directives Records FoundDocuments on File Type Date Recorded Patient Sand Filler Expl anation ACP-Advance Directive ACP-Power of Vp Foundation Documents on File Type Date Recorded Patient Sand Filler Expl anation Advance Directive(s) 11/06/2021 9:17 AM Chief Complaint and Reason for Visit Chief Complaint medication refills & Lab(TSH) Reason for Visit Herpes simplex Hypothyroidism Chief Complaint medication refills & Lab(TSH) medication refills & lab draw Reason for Visit Herpes simplex Hypothyroidism Hypothyroidism Chief Complaint medication refills Reason for Visit Herpes simplex Hypothyroidism Additional Source Comments INFORMATION SOURCE (unrecogn ized section and content) DATE CREATED AUTHOR 04/09/2018 [facility] DATE CREATED AUTHOR AUTHOR'S ORGANIZ ATION 11/14/2020 [facility] DATE CREATED AUTHOR AUTHOR'S ORGANIZ ATION 09/10/2021 [facility] DATE CREATED AUTHOR AUTHOR'S ORGANIZ ATION 11/27/2021 [facility] DATE CREATED AUTHOR AUTHOR'S ORGANIZ ATION 03/25/2022 [facility] DATE CREATED AUTHOR AUTHOR'S ORGANIZ ATION 11/19/2022 [facility] DATE CREATED AUTHOR AUTHOR'S ORGANIZ ATION 06/17/2024 [facility] DATE CREATED AUTHOR AUTHOR'S ORGANIZ ATION 04/24/2025 [facility] Source Comments (unrecognize d section and content) In the event this informatio n is protected by the Federal Confidentiality of Alcohol and Drug Abuse Patient Records regulations: The Federal rules restrict any use of the information to criminally investigate or prosecute any alcohol or drug abuse patient.[facility] the event this information is protected by the Federal Confidentiality of Alcohol and Drug Abuse Patient Records regulations: The Federal rules restrict any use of the information to criminally investigate or prosecute any alcohol or drug abuse patient.[facility] the event this information is protected by the Federal Confidentiality of Alcohol and Drug Abuse Patient Records regulations: The Federal rules restrict any use of the information to criminally investigate or prosecute any alcohol or drug abuse patient.[facility] the event this information is protected by the Federal Confidentiality of Alcohol and Drug Abuse Patient Records regulations: The Federal rules restrict any use of the information to criminally investigate or prosecute any alcohol or drug abuse patient.[facility] Reason for Visit (unrecogniz ed section and content) Reason Comments Follow Up Lt Ft Reason Comments Foot Pain (Midfoot) left Reason Comments Follow Up left ankle Reason Comments Post Op Care Teams (unrecognized sec tion and content) 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 Relationship Specialty Start Date End Date Randy Cueva APRN.DIRECTOR VIDEO [address] [place], [place] [phone] PCP - General Family Practice 08/14/21 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 Relationship Specialty Start Date End Date Randy Cueva APRN.DIRECTOR [employer] [address] [place], [place] [phone] PCP - General Family Practice 08/14/21 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 Relationship Specialty Start Date End Date Randy Cueva APRN.DIRECTOR [employer] [address] [place], [place] [phone] PCP - General Family Practice 08/14/21 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 Relationship Specialty Start Date End Date Randy Cueva APRN.DIRECTOR [employer] [address] [place], [place] [phone] PCP - General Family Medicine 08/14/21 Team Status: Active Member Role Status Dates Randy Cueva ROOF PROMENADE TILE SETTER, ROOF PROMENADE TILE SETTER-C Primary Care Provider Active Team Status: Inactive Member Role Status Dates Randy Cueva ROOF PROMENADE TILE SETTER, ROOF PROMENADE TILE SETTER-C Primary Care Pr ovider, Attending Provider, Referring Provider Active Team Status: Inactive Member Role Status Dates Randy Cueva ROOF PROMENADE TILE SETTER, ROOF PROMENADE TILE SETTER-C Primary Care Provider, Attend ing Provider Active Goals (unrecognized section and content) Goals may be documented in a n alternate sectionGoals may be documented in an alternate sectionGoals may be documented in an alternate section FOR RECORDS PERTAINING TO PATIENTS WHO ARE OR HAVE BEEN ENROLLED IN A CHEMICAL DEPENDENCY/SUBSTANCEABUSE PROGRAM, SOME INFORMATION MAY BE OMITTED. This clinical summary was aggregated from multiple sources. Caution should be exercised in using it in the provision of clinical care. This summary normalizes information from multiple sources, and as a consequence, information in this document may materially change the coding, format and clinical context of patient data. In addition, data may be omitted in some cases. CLINICAL DECISIONS SHOULD BE BASED ON THE PRIMARY CLINICAL RECORDS. [employer] [facility]. provides no warranty or guarantee of the accuracy or completeness of information in this document.
[2025-05-11 21:59] LABS: Hematocrit 38.3 % (37-47); Hemoglobin 12.5 g/dL (12.0-15.0); Immature Granulocytes Count 0.020 X10^3/uL (0.0-0.0); Mean Corp Hgb Conc 32.6 g/dL (32-36); Mean Corpuscular Volume 91.6 fL (81-99); Mean Platelet Vol. 10.9 fl (6.2-12.0); NRBC Flagged by Analyzer 0 % (0-5); Platelet Count 365 K/mm3 (150-450); RBC Distribution Width CV 13.0 % (11.6-14.6); RBC Distribution Width SD 43.8 fl (35.1-43.9); Red Blood Count 4.18 M/mm3 (4.2-5.4); White Blood Count 8.6 K/mm3 (4.4-11.0)
[2025-05-11 22:35] LABS: AST(SGOT) 24 U/L (<=31); Alanine Aminotransfer ALT/SGPT 23 U/L (<=34); Albumin, Serum 4.0 g/dL (3.5-5.0); Alkaline Phosphatase 121 U/L (35-104); Anion Gap 11 (5-15); BUN 9 mg/dL (4-19); BUN/Creat Ratio 11.7 RATIO (10-20); Calcium,Total 9.0 mg/dL (7.6-11.0); Carbon Dioxide 22.3 mmol/L (21.0-32.0); Chloride 103 mmol/L (98-108); Free T3 2.5 pg/mL (2.18-3.98); Globulin 3.3 g/dL (2.2-4.2); Glucose 93 mg/dL (70-99); Potassium 4.6 mmol/L (3.3-5.1)
== END | disposition home or self-care (01) ==
PROVIDERS: PCP Nurse Practitioner; Referring Provider Nurse Practitioner; Visit Provider Nurse Practitioner
DX: E03.9 Hypothyroidism, unspecified (principal); R53.83 Other fatigue
CPT/HCPCS: 80053; 84439; 84443; 84481; 85025

== ENCOUNTER → 2025-06-10 | Outpatient (CLI) | payer OTHER, SELFPAY ==
--- OUTSIDE RECORDS SUMMARY | 2025-06-10 22:34 | XMS RPT_ITS | CCD ---
Author Organization [facility] Care Team Providers Care Control Panel Tester Name Role Phone Ewa Howe Unavailable Unavailable PROVIDER, UNKNOWN Unavailable Unavailable Randy Cueva Unavailable Unavailable Randy Cueva Primary Care Provider [phone] Harley DYE AND CHEMICAL COORDINATOR.ENGLISH TEACHERRandy Primary Care Provide r Harley DYE AND CHEMICAL COORDINATOR.ENGLISH TEACHERRandy L Primary Care Provide r HARLEY RANDY Primary Care Unavailable ARSLAN GOMEZ Attending Unavailable HARLEY RANDY Primary Care Unavailable ARSLAN GOMEZ Attending Unavailable Harley CABINET PROFESSIONAL-C, Randy Primary Care Provider Harley CABINET PROFESSIONAL-C, Randy Attending Provider [phone] Harley CABINET PROFESSIONAL-C, Randy Referring Provider [phone] Harley CABINET PROFESSIONAL, Randy Referring Unavailable Cueva CABINET PROFESSIONAL, Randy Attending Unavailable Cueva CABINET PROFESSIONAL, Randy Primary Care Unavailable CUEVA, RANDY Primary Care Unavailable CUEVA, RANDY Primary Care Unavailable CUEVA, RANDY Primary Care Unavailable Allergies Allergy Classification Reported Allergen(s) Allergy Type Date of Onset Reaction(s) Facility (5 sources) Amoxicillin Drug Allergy 5 Anaphylaxis [place], [place] (4 sources) Penicillins Propensity to adverse reactions to drug 5 Anaphylaxis [place] (3 sources) Penicillins Drug Allergy 5 Anaphylaxis [facility] (1 source) Penicillins Drug Allergy 5 Anaphylaxis [facility] (2 sources) Penicillins Allergy to substance [address] [facility] (1 source) Penicillins Drug allergy (disorder) 9 [facility] Repository Medications Current Medications Medication Drug Class(es) Dates Sig (Normalized) Sig (Original) Norethindrone-E.Estr adiol-Iron (9 sources) Estrogen Start: 04-15-2019 Norethindrone-E.Est radiol-Iron 1 mg-20 mcg (24)/75 mg (4) tablet Active 1 {tbl} PO DAILY April 15, 2019 12:00am Start: 04-15-2019 take 1 tablet by shereen th once daily Norethindrone-E.Estradiol-Iron Active 1 TABLET PO DAILY April 15, 2019 12:00am Norethindrn A-E Estradiol-Iron 1 mg-20 mcg (24)/75 mg (4) Take by mouth. 0 Active Norethin Vivek-Eth Estrad-FE (LOMEDIA 24 FE) 1-20 MG-MCG(24) TABS Take by mouth 0 Active Comment on above: Take by mouth. levothyroxine sodium 0.125 mg oral tablet (20 sources) l-Thyroxine Start: 04-11-2022 End: 05-11-2024 take 1 tablet by mouth once daily Levothyroxine 125 mcg tablet Active 125 ug PO DAILY May 11, 2024 12:00pm Start: 04-15-2019 End: 04-11-2022 take 1 tablet by mouth once daily Levothyroxine 112 mcg tablet Discontinued 112 ug PO DAILY April 11, 2021 1:29pm April [...] Take 1 tablet by mouth 0 Active Thyroid (Pork) (Hume Thyroid) 60 mg tablet (1 source) Start: 05-12-20 25 take 1 tablet by mouth once daily Thyroid (Pork) (Hume Thyroid) 60 mg tablet Active 60 mg PO daily May 12, 2025 12:00am valACYclovir 500 mg oral tablet (10 sources) Herpesvirus Nucleoside Analog DNA Polymerase Inhibitor, Herpes Simplex Virus Nucleoside Analog DNA Polymerase Inhibitor, Herpes Zoster Virus Nucleoside Analog DNA Polymerase Inhibitor Start: 04-15-20 take 1 tablet by mouth twice daily Valacyclovir 500 mg tablet Active 500 mg PO TWICE A DAY April 15, 2019 [...] above: Take 1 tablet by shereen th every 6 hours as needed for pain. gadobutrol (GADAVIST) injection 2 mL (1 source) Start: 11-09-2020 End: 11-09-2020 gadobutrol (GADAVIST) injection 2 mL iopamidol (ISOVUE-300) 61 % injection 25 mL (1 source) Start: 11-09-2020 End: 11-09-2020 iopamidol (ISOVUE-300) 61 % injection 25 mL traMADol hydrochloride 50 mg oral tablet (4 sources) Opioid Agonist Start: 06-30-2019 End: 04-05-2020 take 1 tablet by mouth every six hours Tramadol 50 mg tablet Discontinued 50 mg PO EVERY 6 HOURS 42 1 June 30, 2019 12:00am April 05, 2020 5:06pm Problems Active Problems Problem Classification Problem Date Documented Da te Episodic/Chronic Allergic reactions (2 sources) Allergy status to penicillin; Translations: [Allergy status to penicillin] Onset: 02-07-2018 Episodic Inflammation, infection of eye (2 sources) Unspecified conjunctivitis; Translations: [Unspecified conjunctivitis] Onset: 02-07-2018 Episodic Malaise and fatigue (1 source) Fatigue; Translations: [Other fatigue] 05-12-2025 Episodic Other eye disorders (2 sources) Unspecified [...] left ankle] Episodic Other non-traumatic joint disorders (4 sources) Ankle pain; Translations: [Pain in right ankle and joints of right foot] 06-30-2019 Episodic Sprains and strains (12 sources) Sprain of talofibular ligament of left ankle; Translations: [Sprain of other ligament of left ankle, initial encounter] Episodic Thyroid disorders (11 sources) Hypothyroidism, unspecified; Translations: [Hypothyroidism] Onset: 02-07-2018 11-16-2021 Chronic Unclassified (2 sources) Periorbital cellulitis; Translations: [Periorbital cellulitis] Onset: 02-07-2018 Viral infection (1 source) Herpes simplex of female genitalia; 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] Onset: 08-18-2015 08-18-2015 Chronic Viral infection (4 sources) Herpes simplex; Translations: [Herpesviral infection, unspecified] [...] [Vaginal discharge] Onset: 08-07-2015 08-07-2015 Episodic Unclassified (3 sources) MEDIAL PATELLAR- FEMORAL LIGAMENT RECONSTRUCTION (MPLR) 05-06-2022 Unclassified (3 sources) R KNEE RECONSTRUCTIVE SURGERY 05-06-2022 Results Test Name Value Interpretation Reference Range Facility [facility] Physician Progress No susie 06-03-2025 [facility] Physician Progress Note UMER FINK :1990 Registration Date:06/03/2025 Assessment/Plan Patient is a 34-year-old female with a history of oral contraceptive use presenting today for a well woman exam and cervical cancer screening. This Visit Diagnosis 1. Well woman exam Z01.419 - Annual well woman exam performed; no new concerns identified. 2. Cervical cancer screening Z12.4 - Previous Pap smear showed atypical squamous cells of undetermined significance (ASCUS) with negative HPV; repeat Pap performed this year to confirm normalization. - Discussed that atypical cells may be due to benign factors (recent intercourse, tampon use); absence of HPV is reassuring. - Will follow up with results and further management as indicated. Ordered: GP Thin Prep Reflex HPV(GENPROBE GP Thin Prep Reflex HPV), ROUTINE, 06/03/2025, Specimen type: FRONT DESK CLERK Spec, Dx: Cervical cancer screening THIN PREP IMAGE SEND OUT, ROUTINE, 06/03/2025, Specimen type: FRONT DESK CLERK Spec, Cervix, Dx: Cervical cancer screening 3. Oral contraceptive use Z30.41 - Patient continues Blisovi with good tolerance; minor menstrual irregularities (occasional continuous improvement analyst or heavier periods) discussed as expected with oral contraceptive use. - Provided reassurance regarding cycle variability and no need for intervention at this time. Orders: ethinyl estradiol-norethindron e(Blisovi 24 Fe 10/25 (28 Day) oral tablet), 1 tabs, ORAL, DAILY, 3 refills Medication Reconciliation What How Much When Instructions Unchanged ethinyl estradiol-norethindron e (Blisovi 24 Fe (28 Day) oral tablet) 1 Tabs Oral DAILY Pickup at [facility]/pharmacy #[id number] Unchanged acyclovir (acyclovir 400 mg oral tablet) Oral TWICE A DAY Contact prescribing physician if questions or concerns Unchanged thyroid desiccated (Hume Thyroid) Oral DAILY Contact prescribing physician if questions or concerns Pharmacy Information [facility]/pharmacy #[id number]: [address] [place], [place] [id number] [phone] Chief Complaint Annual, pap ASCUS/HPV neg 03/04/24 RF blisovi -cvs light spotting for period History of Present Illness Disclaimer: The content of this note was generated by an artificial intelligence (AI) language model version 25.Q3.1.0 well woman periods light on blisovi bmi 32 due for pap blisovi doing well The patient is a 34-year-old female with a history of oral contraceptive use, presenting for an annual well woman exam and cervical cancer screening. Gynecological History and Screening The patient reports generally regular periods while taking Blisovi, with occasional heavier bleeding about every three months. Her most recent period was very light, lasting approximately three days, and required only period underwear, which she finds comfortable and prefers for light flow. She denies abnormal or prolonged bleeding and has not experienced significant issues with her current oral contraceptive. Last year's Pap smear showed atypical cells but was HPV negative, and she is undergoing repeat cervical cancer screening this year. Review of Systems Cardiovascular: Positive for heart rate spikes and passing out. Genitourinary: Positive for heavier periods every three months and super light periods. Neurological: Positive for lightheadedness and going pale. Physical Exam Vitals & Measurements BP: 120/70 HT: 165 cm WT: 87.7 kg BMI: 32.21 Depression Screening Scores Initial Depression Screen Score: 0 (06/03/25 10:38:00) Fall Risk Assessment Is the patient ambulatory (mobile): Yes (06/03/25 10:38:00) Have you had a fall within the past: No (06/03/25 10:38:00) Have you had 2 or more falls in the past: No (06/03/25 10:38:00) Constitutional: Appears appropriate for age, non-toxic, and comfortable. No signs of apparent distress present. Speech is clear and appropriate. Stand comfortably erect. Patient is cooperative. VSS and reviewed Eyes: Full range of extra-ocular motion. Conjunctivae clear. Neck: supple and no thyromegaly Respiratory: Chest expansion is adequate bilaterally. Abdomen: Soft and Non-tender, Non distended Musculoskeletal: Walks with a normal gait. Motor strength is intact Ext: No C/C/E Skin: Warm and dry with no evidence of unusual rashes or suspicious lesions. Neurological: Alert and oriented x 3. Mood is normal. Extremities: No clubbing, Cyanosis or edema FRONT DESK CLERK EXAM: Breast exam: normal bilateral breast tissue, no skin changes no masses and no nipple discharge, no LAD Pelvic Exam: Ext Gen: normal Vulva anatomy no rash Perineum: no lesions and intact Vagina: no cystocele or rectocele vaginal mucosa healthy pink Cervix: no CMT, discharge present normal Bladder: non tender on palpation Uterus: normal size and mobile midline, NT adnexa: NT and no masses Pelvic muscles: normal muscle tautness/support Genitourinary: Cervical mucus observed, potential for minor spotting. FRONT DESK CLERK Additional Details Menstrual History M (more content not included)... Normal [facility] Absolute lymphocyte countOrd ered By: Randy Cueva on 05-11-2025 Lymphocytes Auto (Unsp spec) [#/Vol] 2.12 10*3/uL 0.83-4.51 [facility] Absolute neutrophil countOrd ered By: Randy Cueva on 05-11-2025 Neutrophils (Bld) [#/Vol] 5.2 10*3/uL 2.0-7.7 [facility] Anion gap in Serum or Plasma Ordered By: Randy Cueva on 05-11-2025 Anion gap [Moles/Vol] 11 mmol/L 5-15 [facility] Automated lymphocyte count a s percentage of total leukocytesOrdered By: Randy Cueva on 05-11-2025 Lymphocytes/100 WBC Auto (Unsp spec) 24.8 % 19-41 [facility] BUN/creatinine ratioOrdered By: Randy Cueva on 05-11-2025 Urea nitrogen/Creatinine [Mass ratio] 11.7 mg/mg 10-20 [facility] Basophil percentageOrdered B y: Randy Cueva on 05-11-2025 Basophils/100 WBC (Bld) 1.2 % High 0-1 [facility] Bilirubin, totalOrdered By: Randy Cueva on 05-11-2025 Bilirubin [Mass/Vol] 0.15 mg/dL 0.00-1.30 [facility] CBC W/Diff, Automatedon Absolute Lymph 2.12 X10 3/uL Normal 0.83-4.51 [facility] Comment on above: Performed By: #### L 501.33849, L501.9520, L506.0400, L500.4050, L100.0100 #### [facility] [address] [place], [address] Absolute Neut 5.2 X10 3/uL Normal 2.0-7.7 [facility] Comment on above: Performed By: #### L 501.84075, L501.9520, L506.0400, L500.4050, L100.0100 #### [facility] [address] [place], [address] Basophils/100 WBC (Bld) 1.2 % High 0-1 [facility] Comment on above: Performed By: #### L 501.95425, L501.9520, L506.0400, L500.4050, L100.0100 #### [facility] [address] [place], [address] Eosinophils/100 WBC (Bld) 4.0 % Normal 0-5 [facility] Comment on above: Performed By: #### L 501.66796, L501.9520, L506.0400, L500.4050, L100.0100 #### [facility] [address] [place], [address] Erythrocyte distribution width (RBC) [Ratio] 13.0 % Normal 11.6-14.6 [facility] Comment on above: Performed By: #### L 501.76901, L501.9520, L506.0400, L500.4050, L100.0100 #### [facility] [address] [place], [address] Hematocrit (Bld) [Volume fraction] 38.3 % Normal 37-47 [facility] Comment on above: Performed By: #### L 501.04883, L501.9520, L506.0400, L500.4050, L100.0100 #### [facility] [address] [place], [address] Hemoglobin (Bld) [Mass/Vol] 12.5 g/dL Normal 12.0-15.0 [facility] Comment on above: Performed By: #### L 501.50191, L501.9520, L506.0400, L500.4050, L100.0100 #### [facility] [address] [place], [address] IG% 0.200 Normal 0.0-0.9 [facility] Comment on above: Result Comment: IG% - Immature Granulocytes (promyelocytes, myelocytes and metamyelocytes) > 1% indicates that a LEFT SHIFT is Present. Performed By: #### L 501.16687, L501.9520, L506.0400, L500.4050, L100.0100 #### [facility] [address] [place], [address] Lymphocytes/100 WBC (Bld) 24.8 % Normal 19-41 [facility] Comment on above: Performed By: #### L 501.52095, L501.9520, L506.0400, L500.4050, L100.0100 #### [facility] [address] [place], [address] MCH (RBC) [Entitic mass] 29.9 pg Normal 27.0-32.0 [facility] Comment on above: Performed By: #### L 501.97828, L501.9520, L506.0400, L500.4050, L100.0100 #### [facility] [address] [place], [address] MCHC (RBC) [Mass/Vol] 32.6 g/dL Normal 32-36 [facility] Comment on above: Performed By: #### L 501.62044, L501.9520, L506.0400, L500.4050, L100.0100 #### [facility] [address] [place], [address] MCV (RBC) [Entitic vol] 91.6 fL Normal 81-99 [facility] Comment on above: Performed By: #### L 501.52143, L501.9520, L506.0400, L500.4050, L100.0100 #### [facility] [address] [place], [address] Monocytes/100 WBC (Bld) 9.1 % Normal 0-10 [facility] Comment on above: Performed By: #### L 501.95603, L501.9520, L506.0400, L500.4050, L100.0100 #### [facility] [address] [place], [address] Neutrophils/100 WBC (Bld) 60.7 % Normal 47-70 [facility] Comment on above: Performed By: #### L 501.51747, L501.9520, L506.0400, L500.4050, L100.0100 #### [facility] [address] [place], [address] Nucleated RBC (Bld) [#/Vol] 0 10*3/uL Normal 0-5 [facility] Comment on above: Performed By: #### L 501.24679, L501.9520, L506.0400, L500.4050, L100.0100 #### [facility] [address] [place], [address] Platelet mean volume (Bld) [Entitic vol] 10.9 fL Normal 6.2-12.0 [facility] Comment on above: Performed By: #### L 501.05399, L501.9520, L506.0400, L500.4050, L100.0100 #### [facility] [address] [place], [address] Platelets (Bld) [#/Vol] 365 10*3/uL Normal 150-450 [facility] Comment on above: Performed By: #### L 501.47341, L501.9520, L506.0400, L500.4050, L100.0100 #### [facility] [address] [place], [address] RBC (Bld) [#/Vol] 4.18 10*6/uL Low 4.2-5.4 [facility] Comment on above: Performed By: #### L 501.93212, L501.9520, L506.0400, L500.4050, L100.0100 #### [facility] [address] [place], [address] RDW SD 43.8 fl Normal 35.1-43.9 [facility] Comment on above: Performed By: #### L 501.00429, L501.9520, L506.0400, L500.4050, L100.0100 #### [facility] [address] [place], [address] WBC (Bld) [#/Vol] 8.6 10*3/uL Normal 4.4-11.0 [facility] Comment on above: Performed By: #### L 501.30422, L501.9520, L506.0400, L500.4050, L100.0100 #### [facility] [address] [place], [address] Carbon dioxide, total [Moles /volume] in Central venous bloodOrdered By: Randy Cueva on 05-11-2025 CO2 [Moles/Vol] 22.3 mmol/L 21.0-32.0 [facility] Chloride assayOrdered By: Do ra Cueva on 05-11-2025 Chloride [Moles/Vol] 103 mmol/L 98-108 [facility] Comprehensive Metabolic Prof ilon 05-11-2025 Albumin [Mass/Vol] 4.0 g/dL Normal 3.5-5.0 [facility] Comment on above: Performed By: #### L 501.20183, L501.9520, L506.0400, L500.4050, L100.0100 #### [facility] [address] [place], [address] Albumin/Globulin [Mass ratio] 1.2 {ratio} Normal 0.9-2.4 [facility] Comment on above: Performed By: #### L 501.17582, L501.9520, L506.0400, L500.4050, L100.0100 #### [facility] [address] [place], [address] ALK PHOS 121 U/L High 35-104 [facility] Comment on above: Performed By: #### L 501.08026, L501.9520, L506.0400, L500.4050, L100.0100 #### [facility] [address] [place], [address] ALT [Catalytic activity/Vol] 23 U/L Normal <=34 [facility] Comment on above: Performed By: #### L 501.97925, L501.9520, L506.0400, L500.4050, L100.0100 #### [facility] [address] [place], [address] AST [Catalytic activity/Vol] 24 U/L Normal <=31 [facility] Comment on above: Performed By: #### L 501.19716, L501.9520, L506.0400, L500.4050, L100.0100 #### [facility] [address] [place], [address] Bilirubin [Mass/Vol] 0.15 mg/dL Normal 0.00-1.30 [facility] Comment on above: Performed By: #### L 501.39924, L501.9520, L506.0400, L500.4050, L100.0100 #### [facility] [address] [place], [address] BUN/CRE 11.7 RATIO Normal 10-20 [facility] Comment on above: Performed By: #### L 501.26313, L501.9520, L506.0400, L500.4050, L100.0100 #### [facility] [address] [place], [address] Calcium [Mass/Vol] 9.0 mg/dL Normal 7.6-11.0 [facility] Comment on above: Performed By: #### L 501.05555, L501.9520, L506.0400, L500.4050, L100.0100 #### [facility] [address] [place], [address] Chloride [Moles/Vol] 103 mmol/L Normal 98-108 [facility] Comment on above: Performed By: #### L 501.40091, L501.9520, L506.0400, L500.4050, L100.0100 #### [facility] [address] [place], [address] CO2 [Moles/Vol] 22.3 mmol/L Normal 21.0-32.0 [facility] Comment on above: Performed By: #### L 501.46370, L501.9520, L506.0400, L500.4050, L100.0100 #### [facility] [address] [place], [address] Creatinine [Mass/Vol] 0.80 mg/dL Normal 0.70-1.20 [facility] Comment on above: Performed By: #### L 501.20090, L501.9520, L506.0400, L500.4050, L100.0100 #### [facility] [address] [place], [address] GAP 11 Normal 5-15 [facility] Comment on above: Performed By: #### L 501.83213, L501.9520, L506.0400, L500.4050, L100.0100 #### [facility] [address] [place], [address] GFR/1.73 sq M.predicted among non-blacks MDRD (S/P/Bld) [Vol rate/Area] 99 mL/min/{1.73_m2} Normal >60 [facility] Comment on above: Result Comment: mL/m in/1.73m2 CKD-EPI Creatinine Equation (2020) Performed By: #### L 501.47956, L501.9520, L506.0400, L500.4050, L100.0100 #### [facility] [address] [place], [address] Globulin (S) [Mass/Vol] 3.3 g/dL Normal 2.2-4.2 [facility] Comment on above: Performed By: #### L 501.67142, L501.9520, L506.0400, L500.4050, L100.0100 #### [facility] [address] [place], [address] Glucose [Mass/Vol] 93 mg/dL Normal 70-99 [facility] Comment on above: Performed By: #### L 501.57626, L501.9520, L506.0400, L500.4050, L100.0100 #### [facility] [address] [place], [address] Potassium [Moles/Vol] 4.6 mmol/L Normal 3.3-5.1 [facility] Comment on above: Performed By: #### L 501.76502, L501.9520, L506.0400, L500.4050, L100.0100 #### [facility] [address] [place], [address] Sodium [Moles/Vol] 136 mmol/L Normal 133-145 [facility] Comment on above: Performed By: #### L 501.27756, L501.9520, L506.0400, L500.4050, L100.0100 #### [facility] [address] [place], [address] T PROT 7.3 g/dL Normal 5.9-8.4 [facility] Comment on above: Performed By: #### L 501.64944, L501.9520, L506.0400, L500.4050, L100.0100 #### [facility] [address] [place], [address] Urea nitrogen [Mass/Vol] 9 mg/dL Normal 4-19 [facility] Comment on above: Performed By: #### L 501.42499, L501.9520, L506.0400, L500.4050, L100.0100 #### [facility] [address] [place], [address] Eosinophil percentageOrdered By: Randy Cueva on 05-11-2025 Eosinophils/100 WBC (Bld) 4.0 % 0-5 [facility] Erythrocyte distribution wid th ratioOrdered By: Randy Cueva on 05-11-2025 Erythrocyte distribution width (RBC) [Ratio] 13.0 % 11.6-14.6 [facility] Erythrocyte distribution wid th standard deviationOrdered By: Randy Cueva on 05-11-2025 Erythrocyte distribution width (RBC) [Ratio] 43.8 fl 35.1-43.9 [facility] Free L7Pplwvvf By: Randy patton on 05-11-2025 Free T3 [Mass/Vol] 2.5 pg/mL 2.18-3.98 [facility] Free T3on 05-11-2025 Free T3 [Mass/Vol] 2.5 pg/mL Normal 2.18-3.98 [facility] Comment on above: Performed By: #### L 501.09467, L501.9520, L506.0400, L500.4050, L100.0100 #### [facility] [address] [place], [place], [id number] Glomerular filtration rate ( GFR) estimation/1.73 sq m using serum, plasma, or whole bOrdered By: Randy Cueva on 05-11-2025 GFR/1.73 sq M.predicted among non-blacks MDRD (S/P/Bld) [Vol rate/Area] 99 mL/min/{1.73_m2} >60 [facility] Comment on above: mL/min/1.73m2 CKD-EP I Creatinine Equation (2020) Hematocrit Auto (Bld) [Volum e fraction]Ordered By: Randy Cueva on 05-11-2025 Hematocrit (Bld) [Volume fraction] 38.3 % 37-47 [facility] Hemoglobin measurementOrdere d By: Randy Cueva on 05-11-2025 Hemoglobin (Bld) [Mass/Vol] 12.5 g/dL 12.0-15.0 [facility] Immature granulocytes/100 WB C Auto (Bld)Ordered By: Randy Cueva on 05-11-2025 Immature granulocytes/100 WBC (Bld) 0.200 % 0.0-0.9 [facility] Comment on above: IG% - Immature Granu locytes (promyelocytes, myelocytes and metamyelocytes) > 1% indicates that a LEFT SHIFT is Present. Laboratory - Chemistry and C hemistry - challengeOrdered By: Randy Cueva on 05-11-2025 AST [Catalytic activity/Vol] 24 U/L <32 [facility] MCV (mean corpuscular volume ) determinationOrdered By: Randy Cueva on 05-11-2025 MCV (RBC) [Entitic vol] 91.6 fL 81-99 [facility] Mean corpuscular hemoglobin (MCH) determinationOrdered By: Randy Cueva on 05-11-2025 MCH (RBC) [Entitic mass] 29.9 pg 27.0-32.0 [facility] Mean corpuscular hemoglobin concentration (MCHC) determinationOrdered By: Randy Cueva on 05-11-2025 MCHC (RBC) [Mass/Vol] 32.6 g/dL 32-36 [facility] Mean platelet volume determi nationOrdered By: Randy Cueva on 05-11-2025 Platelet mean volume (Bld) [Entitic vol] 10.9 fL 6.2-12.0 [facility] Monocyte percentageOrdered B y: Randy Cueva on 05-11-2025 Monocytes/100 WBC (Bld) 9.1 % 0-10 [facility] Neutrophil percentageOrdered By: Randy Cueva on 05-11-2025 Neutrophils/100 WBC (Bld) 60.7 % 47-70 [facility] Nucleated red blood cell per centageOrdered By: Randy Cueva on 05-11-2025 Nucleated RBC/100 WBC (Bld) [Ratio] 0 % 0-5 [facility] Platelet countOrdered By: Do ra Cueva on 05-11-2025 Platelets (Bld) [#/Vol] 365 10*3/uL 150-450 [facility] Potassium measurement (mass/ volume)Ordered By: Radny Cueva on 05-11-2025 Potassium (Unsp spec) [Mass/Vol] 4.6 mmol/L 3.3-5.1 [facility] RBC Auto (Bld) [#/Vol]Ordere d By: Randy Cueva on 05-11-2025 RBC (Bld) [#/Vol] 4.18 10*6/uL Low 4.2-5.4 [facility] Serum creatinine measurement (mass/volume)Ordered By: Randy Cueva on 05-11-2025 Creatinine [Mass/Vol] 0.80 mg/dL 0.70-1.20 [facility] Serum globulin measurementOr dered By: Randy Cueva on 05-11-2025 Globulin (S) [Mass/Vol] 3.3 g/dL 2.2-4.2 [facility] Serum glucose measurement (m ass/volume)Ordered By: Randy Cueva on 05-11-2025 Glucose [Mass/Vol] 93 mg/dL 70-99 [facility] Serum or plasma alanine gomez otransferase (ALT) measurementOrdered By: Randy Cueva on 05-11-2025 ALT [Catalytic activity/Vol] 23 U/L <35 [facility] Serum or plasma albumin pratik urement (mass/volume)Ordered By: Randy Cueva on 05-11-2025 Albumin [Mass/Vol] 4.0 g/dL 3.5-5.0 [facility] Serum or plasma albumin/glob ulin mass ratioOrdered By: Randy Cueva on 05-11-2025 Albumin/Globulin [Mass ratio] 1.2 {ratio} 0.9-2.4 [facility] Serum or plasma alkaline vj sphatase measurementOrdered By: Randy Cueva on 05-11-2025 ALP [Catalytic activity/Vol] 121 U/L High 35-104 [facility] Serum or plasma calcium pratik urement (mass/volume)Ordered By: Randy Cueva on 05-11-2025 Calcium [Mass/Vol] 9.0 mg/dL 7.6-11.0 [facility] Serum or plasma urea nitroge n measurement (mass/volume)Ordered By: Randy Cueva on 05-11-2025 Urea nitrogen [Mass/Vol] 9 mg/dL 4-19 [facility] Sodium levelOrdered By: Randy Cueva on 05-11-2025 Sodium [Moles/Vol] 136 mmol/L 133-145 [facility] T4 Free Directon 05-11-2025 T4 FREE DIRECT 1.20 ng/dL Normal 0.76-1.46 [facility] Comment on above: Performed By: #### L 501.91077, L501.9520, L506.0400, L500.4050, L100.0100 #### [facility] [address] [place], [address] T4 freeOrdered By: Randy patton on 05-11-2025 Free T4 [Mass/Vol] 1.20 ng/dL 0.76-1.46 [facility] TSH DL <= 0.005 mIU/L QnOrde red By: Randy Cueva on 05-11-2025 TSH Qn 3.850 uIU/mL 0.300-4.200 [facility] Thyroid Stim Hormone (TSH)on 05-11-2025 TSH 3.850 uIU/mL Normal 0.300-4.200 [facility] Comment on above: Performed By: #### L 501.48460, L501.9520, L506.0400, L500.4050, L100.0100 #### [facility] [address] [place], [address] Total proteinOrdered By: Silver Cueva on 05-11-2025 Protein [Mass/Vol] 7.3 g/dL 5.9-8.4 [facility] White blood cell (WBC) count Ordered By: Randy Cueva on 05-11-2025 WBC (Bld) [#/Vol] 8.6 10*3/uL 4.4-11.0 [facility] No Panel InformationOrdered By: Randy Cueva on 05-14-2023 Thyroid Stimulating Hormone (TSH) 0.65 uIU/mL 0.358-3.74 [facility] No Panel Informationon 05-06 Thyroid Stimulating Hormone (TSH) 1.62 uIU/mL 0.358-3.74 [facility] Work Phone: No Panel Informationon 04-10 Thyroid Stimulating Hormone (TSH) 4.15 uIU/mL 0.358-3.74 [facility] Work Phone: CNPRadha 12-21-2021 [facility] Telephone ([id number]) UMER FINK ([id number]) 1990 F Date Time Provider Department 12/21/21 DANA CLINTON [id number] During your visit today, we recorded the following information about you: Louisa Langford 12/21/2021 2:48 PM Signed Patient called into the office she wanted to know if she should be bearing more weight. Her next appointment is 12/05/21. Please advise Louisa Gomeszoran 12/24/2021 8:37 AM Signed Left message on voicemail with details for the patient about the boot and weight bearing statis . Allergies As of Date: 12/21/2021 Noted Allergy Reaction AMOXICILLIN 02/22/2015 10 - Anaphylaxis PENICILLINS 02/14/2015 10 - Anaphylaxis Comments: Hives and swelling in throat Date Reviewed: 12/10/2021 Reviewed by: Dana Clinton DPM - Fully Assessed Reason for Visit: Question [1327] Prescriptions as of 12/24/2021 - HYDROcodone-acetaminop hen [...] initial encounter*11/05/2021 Hypothyroidism [E03.9] Encounter Status:Closed by PATRICIALOUISA on 12/21/21 Normal [facility] [place] 12-11-2021 [facility] Telephone ([id number]) UMER FINK ([id number]) 1990 F Date Time Provider Department 12/11/21 DANA CLINTON [id number] During your visit today, we recorded the following information about you: Louisa Langford 12/11/2021 11:22 AM Signed Patient is aware that the [employer] paper work they have requested was faxed over with a confirmation of received. Allergies As of Date: 12/11/2021 Noted Allergy Reaction AMOXICILLIN 02/22/2015 10 - Anaphylaxis PENICILLINS 02/14/2015 10 - Anaphylaxis Comments: Hives and swelling in throat Date Reviewed: 12/10/2021 Reviewed by: Dana Clinton DPM - Fully Assessed Reason for [...] initial encounter*11/05/2021 Hypothyroidism [E03.9] Encounter Status:Closed by IVANNALOUISA BRYSON on 12/11/21 Normal [facility] ANES POSTPROC EVALon 022 ANES POSTPROC EVAL HNO ID: [id number] Author: Nirav Jones MD Service: Anesthesiology Author Type: Anesthesiologist Type: Anesthesia Postprocedure Evaluation Filed: 11/21/2021 10:12 AM Note Text: POST ANESTHESIA EVALUATION NOTE : 1990 Procedure Summary Date: 11/21/21 Room / Location: [address] / [facility] Anesthesia Start: 748 Anesthesia Stop: 954 Procedures: [...] Documentation SIGNATURE: Nirav Jones MD PATIENT NAME: Umer Fink DATE: November 21, 2021 TIME: 10:12 AM CSN: [id number] [facility] ANES PRE-OPon 11-21-2021 ANES PRE-OP HNO ID: [id number] Author: Nirav Jones MD Service: Anesthesiology Author Type: Anesthesiologist Type: Anesthesia Preprocedure Evaluation Filed: 11/21/2021 7:20 AM Note Text: ANESTHESIOLOGY DAY OF SURGERY NOTE : 1990 Procedure Information Date/Time: 11/21/21 0729 Procedures: ARTHROSCOPY ANKLE W/ DEBRIDEMENT EXTENSIVE (Left Ankle) REPAIR TENDON PERONEAL (Left Ankle) REPAIR COLLATERAL LIGAMENT BOTH PRIMARY ANKLE (Left Ankle) Location: [facility] / [facility] Surgeons: Ellie Cuello DPM Estimated body mass [...] none. Vitals Value Taken Time BP 124/79 11/21/21 0635 Pulse 94 11/21/21 0636 Resp 16 11/21/21 0631 Temp 36 ?C (96.8 ?F) 11/21/21 0631 SpO2 100 % 11/21/21 0636 Vitals shown include unvalidated device data. Facility-Administered [...] Surgery/Procedure. SIGNATURE: Nirav Jones MD PATIENT NAME: Umer Fink DATE: November 21, 2021 TIME: 6:42 AM CSN: [id number] [facility] BRIEF OP NOTon 11-21-2021 BRIEF OP NOT HNO ID: [id number] Author: Siobhan Anthony DPM Service: Podiatry Author Type: Resident Type: Brief Op Note Filed: 11/21/2021 9:59 AM Note Text: Attestation signed by Ellie Cuello DPM at 11/21/2021 10:25 AM Statement of Resident/FellowSashleyervjosephine hill: The resident/fellow was under my direct supervision [...] BRIEF OPERATIVE / PROCEDURE NOTE LOG ID: [id number] SURGERY/PROCEDURE DATE: 11/21/2021 INCISION/PROCEDURE START TIME: 8:15 AM INCISION CLOSE/PROCEDURE END TIME: 9:44 AM SURGEON(S)/PROCEDURALI ST(S) AND FIGHTER PILOT(S): Surgeon(s) and Role: * Ellie Cuello DPM [...] Preop SIGNATURE: Siobhan Anthony DPM PATIENT NAME: Umer Fink DATE: November 21, 2021 TIME: 9:57 AM [phone] [facility] HISTORY PHYSICALon HISTORY PHYSICAL HNO ID: [id number] Author: Siobhan Anthony DPM Service: Podiatry Author [...] 11/13/2021. SIGNATURE: Siobhan Anthony DPM PATIENT NAME: Umer Fink DATE: November 21, 2021 [facility] NURSING PROGon 11-21-2021 NURSING PROG HNO ID: [id number] Author: Anabel Hunter RN Service: ? Author Type: Registered Nurse Type: Nursing Progress Note Filed: 11/21/2021 7:08 AM Note Text: Nursing Progress Note Patient Name: Umer Fink Patient Location: [facility] __ Daily Note:Pt unable to give urine sample for test , agrees to move ahead with procedure and block.Risks explained to pt if and receiving anesthesia. Dr. Jones and Teodora Cruz at bedside to discuss.Dr. Cuello also made aware.ok to proceed. This note was completed by: Anabel Hunter [facility] OPERATIVE NOon 11-21-2021 OPERATIVE NO HNO ID: [id number] Author: Ellie Cuello DPM Service: Podiatry Author Type: Physician Type: Operative Report Filed: 11/22/2021 10:42 AM Note Text: OPERATIVE REPORT NAME: Umer Fink DATE: 11/21/21 AGE: [age] year old [...] the p (more content not included)... Normal [facility] SURGICAL PATHOLOGYon 022 SURGICAL PATHOLOGY Specimen originated from [facility] Specimen #: [id number] Submitting Physician: ELLIE CUELLO FINAL DIAGNOSIS Soft tissue, left peroneal tendon, excision: Tendon, fibrocartilage and fibrous tissue with non-specific reactive changes. BPR/LDF 11/23/2021 David Burton M.D., PhD (Electronic Signature) [...] cassette. WE/ 11/22/2021 Gross examination performed at [facility], [address] [address] Date of Report: 11/26/2021 Date of Procedure: 11/21/2021 Date of Receipt: 11/22/2021 Submitted by: ELLIE CUELLO Additional Physician(s): RANDY CUEVA APRN,ENGLISH TEACHER Location: [facility] Diagnostic interpretation performed at [facility], [address] [facility] [address]. [place] Number: [id number] Normal [facility] HISTORY PHYSICALon HISTORY PHYSICAL HNO ID: [id number] Author: Lore King PA-C Service: ? Author Type: Physician Grain Elevator Motor Starter Type: HANDP Filed: 11/16/2021 4:52 AM Note Text: PREANESTHESIA CONSULT CLINIC TELEHEALTH VISIT Patient has been identified by name and date of : Yes This is a virtual visit using [employer] video visit. It require patient-provider interaction for [...] fevers. Neuro: No history of TIA's, stroke, POWER BRAKE OPERATOR tumor, impaired sensorium, hemiplegia, paraplegia or quadraplegia. No neurological symptoms or problems. Respiratory: No history of current cough or dyspnea, or pneumonia in the past 6 weeks. No history of respiratory/pulmonary symptoms or problems. Cardiovascular: No history of HTN requiring medication, no history of angina, CHF, [place], cardiac surgery or stents. Denies rest pain, gangrene or revascularization/ampu tation for PVD. No history of cardiovascular symptoms or problems. GI: No history of GI symptoms or problems. No history of esophageal varices, recent ascites, or ETOH greater than 2 drinks per day. : No history of dysuria, frequency or incontinence,, stones or chronic kidney disease FRONT DESK CLERK: Negative for abnormal vaginal bleeding, abnormal vaginal [...] smiling, interacti (more content not included)... Normal [facility] 11-05-2021 [facility] ([id number]) UMER FINK ([id number]) 1990 F Date Time Provider Department 11/05/21 ELLIE CUELLO [id number] During your visit today, we recorded the following information about you: Ewa Gaytan MA 11/05/2021 10:14 AM Signed Umer is scheduled 11/21/21 at [facility]. Please send surgery orders. Allergies As of [...] injury, left, initial encounter*11/05/2021 Encounter Status:Closed by AILCE PETTY EWA on 11/14/21 Normal [facility] MRI ANKLE WO IVCON LTon 12-0 MRI [...] No evidence of bone fracture or contusion. Mechanical Spreader Operator: PSCB Transcribe Date/Time: Sep 10 2021 8:26A Dictated by : EDIN IVEY MD This examination was interpreted and the report reviewed and electronically signed by: EDIN IVEY MD on Sep 10 2021 9:02AM EST [id number] [facility] 08-13-2021 [facility] ([id number]) UMER FINK ([id number]) 1990 F Date Time Provider Department 08/13/21 DANA CLINTON [id number] During your visit today, we recorded the following information about you: Ewa Fernando MA 08/13/2021 11:40 AM Signed MRI is approved Ref # is [id number] and approval # is [id number] I left message with patient to make appointment Allergies As of Date: 08/13/2021 Noted Allergy Reaction AMOXICILLIN 02/22/2015 10 - Anaphylaxis PENICILLINS 02/14/2015 10 - Anaphylaxis Comments: Hives and swelling in throat Date Reviewed: 08/13/2021 Reviewed by: Dana Clinton DPM - Fully Assessed Reason for Visit: Insurance Authorization [[id number]] Cmt: MRI Prescriptions as of 08/14/2021 - [...] Status:Closed by EWA FERNANDO MA on 08/14/21 [facility] OBSOLETEon 07-27-2021 OBSOLETE Refill ([id number]) UMER FINK ([id number]) 1990 F Date Time Provider Department 07/27/21 DANA CLINTON [id number] During your visit today, we recorded the following information about you: Allergies As of Date: 07/27/2021 Noted Allergy Reaction AMOXICILLIN 02/22/2015 10 - Anaphylaxis PENICILLINS 02/14/2015 10 - Anaphylaxis Comments: Hives and swelling in throat Date Reviewed: 07/16/2021 Reviewed by: Dana Clinton DPM - Fully Assessed Reason for [...] Encounter Status:Closed by GENESIS CLINTON on 07/31/21 [facility] ARTHR/ASP/INJ MAJOR JT/BU RSA LT WO USon 11-09-2020 Patient Name: UMER FINK Fluoroscopy ACCESSION EXAM DATE/TIME PROCEDURE ORDERING PROVIDER [id number] 11/09/2020 12:49 EST RF Arthrogram Aspir Inj NITISH NICHOLS Cedric Jt Left CPT code 55032 [id number] Reason For Exam (RF Arthrogram Aspir Inj [...] J Transcribed Date and Time: 11/09/2020 3:15 [facility]- [place], [place] [facility] Incoming Radiology Results From [facility] - 11/09/2020 3:18 PM EST [facility]: [id number] ACCESSION EXAM DATE/TIME PROCEDURE ORDERING PROVIDER [id number] 11/09/2020 12:49 EST RF Arthrogram Aspir Inj NITISH NICHOLS Cedric Jt Left CPT code 86378 72782 [id number] Reason For Exam (RF Arthrogram Aspir Inj [...] J Transcribed Date and Time: 11/09/2020 3:15 [place], [place] MRI UPPER EXTREMITY LEFT W Andrzej Guillermo 11-09-2020 Patient Name: UMER FINK Magnetic Resonance Imaging ACCESSION EXAM DATE/TIME PROCEDURE ORDERING PROVIDER [id number] 11/09/2020 13:23 EST MRI Up Ext Joint w/ NITISH NICHOLS Contrast Left CPT code 77691 Reason For Exam (MRI Up Ext Joint [...] J Transcribed Date and Time: 11/09/2020 3:47 [place], [place] Silas [place] Incoming Radiology Results From [facility] - 11/09/2020 4:14 PM EST [facility]: [id number] Imaging ACCESSION EXAM DATE/TIME PROCEDURE ORDERING PROVIDER [id number] 11/09/2020 13:23 EST MRI Up Ext Joint w/ NITISH NICHOLS Contrast Left CPT code 96977 Reason For Exam (MRI Up Ext Joint [...] J Transcribed Date and Time: 11/09/2020 3:47 [place], [place] MRI Up Ext Joint w/ Contrast Lefton 11-09-2020 MRI Up Ext Joint w/ Contrast Left Patient Name: UMER FINK Magnetic Resonance Imaging ACCESSION EXAM DATE/TIME PROCEDURE ORDERING PROVIDER [id number] 11/09/2020 13:23 EST MRI Up Ext Joint w/ NITISH NICHOLS Contrast Left CPT code 65925 Reason For Exam (MRI Up Ext Joint [...] Transcribed Date and Time: 11/09/2020 3:47 Normal [facility] RF Arthrogram Aspir Inj Cedric Jt Lefton 11-09-2020 RF Arthrogram Aspir Inj Cedric Jt Left [facility]: [id number] Fluoroscopy ACCESSION EXAM DATE/TIME PROCEDURE ORDERING PROVIDER [id number] 11/09/2020 12:49 EST RF Arthrogram Aspir Inj NITISH NICHOLS Cedric Jt Left CPT code 43514 41279 51893 Reason For Exam (RF Arthrogram Aspir Inj [...] J Transcribed Date and Time: 11/09/2020 3:[address] [facility] Vital Signs Date Time Vital Sign Value Performing Clinician Facility 05-11-2024 19:08-0400 Body height 165.1 cm Randy Cueva [employer] PROFESSIONAL[employer] Work Phone: [facility] 05-11-2024 19:08-0400 Body mass index (BMI) [Ratio] 32.4 kg/m2 Randy Cueva [employer] PROFESSIONAL[employer] Work Phone: [phone] [place] [address] 05-11-2024 19:08-0400 Body temperature 97.7 [degF] Randy Cueva [employer]INET PROFESSIONAL-C Work Phone: [facility] 05-11-2024 19:08-0400 Body weight 88.45 kg Randy Cueva CABINET PROFESSIONAL[employer]C Work Phone: [facility] 05-11-2024 19:08-0400 Diastolic blood pressure 60 mm[Hg] Randy Cueva [employer]INET PROFESSIONAL[employer] Work Phone: [facility] 05-11-2024 19:08-0400 Heart rate 76 /min Randy Cueva [employer]ET PROFESSIONAL[employer]C Work Phone: [facility] 05-11-2024 19:08-0400 Respiratory rate 18 /min Randy Cueva [employer]INET PROFESSIONAL[employer] Work Phone: [facility] 05-11-2024 19:08-0400 SaO2% (BldA) [Mass fraction] 99 % Randy Cueva [employer] PROFESSION[employer] Work Phone: [facility] 05-11-2024 19:08-0400 Systolic blood pressure 120 mm[Hg] Randy Cueva CABINET PROFESSIONAL-C Work Phone: [facility] 05-14-2023 16:45-0400 Body height 165.1 cm [facility] 05-14-2023 16:45-0400 Body mass index (BMI) [Ratio] 29.6 kg/m2 [facility] 05-14-2023 16:45-0400 Body temperature 97.7 [degF] [facility] 05-14-2023 16:45-0400 Body weight 80.73 kg [facility] 05-14-2023 16:45-0400 Diastolic blood pressure 60 mm[Hg] [facility] 05-14-2023 16:45-0400 Heart rate 62 /min [facility] 05-14-2023 16:45-0400 Respiratory rate 18 /min [facility] 05-14-2023 16:45-0400 SaO2% (BldA) [Mass fraction] 98 % [facility] 05-14-2023 16:45-0400 Systolic blood pressure 130 mm[Hg] [facility] 07-19-2022 12:50-0400 Body temperature 98.91 [degF] Ambrocio Enciso [facility] Work Phone: [facility] 05-06-2022 16:53-0400 Body height 165.1 cm [facility] Work Phone: 04-10-2022 18:34-0400 Body height 165.1 cm [facility] Work Phone: 04-10-2022 18:34-0400 Body temperature 97.9 [degF] [facility] Work Phone: 04-10-2022 18:34-0400 Diastolic blood pressure 70 mm[Hg] [facility] Work Phone: 04-10-2022 18:34-0400 Heart rate 101 /min [facility] Work Phone: 04-10-2022 18:34-0400 Respiratory rate 18 /min [facility] Work Phone: 04-10-2022 18:34-0400 SaO2% (BldA) [Mass fraction] 100 % [facility] Work Phone: 04-10-2022 18:34-0400 Systolic blood pressure 118 mm[Hg] [facility] Work Phone: 03-25-2022 08:31-0400 Body temperature 97.81 [degF] Dana Clinton DPM Work Phone: [facility] 02-11-2022 09:49-0400 Body temperature 98.1 [degF] Dana Jacobsrosalia DPM Work Phone: [facility] 01-21-2022 09:25-0400 Body temperature 98.01 [degF] Dana Reynaldorosalia DPM Work Phone: [facility] Encounters Encounter Date Encounter Type Care Provider Facility Start: 06-03-2025 End: 06-03-2025 ambulatory RANDY CUEVA Facility:[facility] Start: 06-03-2025 End: 06-03-2025 ambulatory RANDY CUEVA Facility:[id number] Start: 05-11-2025 End: 05-11-2025 ambulatory Randy Cueva [employer] Work Phone: -Laboratory Specimen Start: 05-11-2025 End: 05-11-2025 Patient encounter procedure Randy Cueva [employer]INET [employer]ESSIONAL-C -Laboratory Specimen Work Phone: Start: 05-11-2025 End: 05-11-2025 ambulatory Randy Cueva CABINET PROFESSIONAL Facility:[facility] Start: 04-21-2025 ambulatory RANDYAndres CUEVA Facilit y:[facility] Start: 05-14-2023 End: 05-14-[address] [facility] Work Phone: Start: 05-14-2023 End: 05-14-[address] [facility]-Laboratory, Specimen Work Phone: Start: 11-15-2022 End: 11-16-2022 ambulatory RANDY CUEVA Facility:[facility] Start: 11-15-2022 End: 11-16-2022 ambulatory RANDYAndres CUEVA Facility:[id number] Start: 07-19-2022 End: 07-19-2022 Patient encounter procedure Ambrocio Enciso DPM Work Phone: [facility] Comment on above: Ankle instability, l eft (Primary Dx); Peroneal tendon injury, left, sequela; Sprain of anterior talofibular ligament of left ankle, sequela Start: 05-06-2022 End: 05-06-[address] [facility]-Laboratory, Specimen Start: 04-10-2022 End: 04-10-[address] [facility], Specimen Start: 03-25-2022 End: 03-25-2022 Patient encounter procedure Dana Clinton DPM Work Phone: [facility] Comment on above: Ankle instability, l eft (Primary Dx); Peroneal tendon injury, left, sequela; Sprain of anterior talofibular ligament of left ankle, sequela Start: 02-11-2022 End: 02-11-2022 Patient encounter procedure Dana Clinton DPM Work Phone: [facility] Comment on above: Ankle instability, l eft (Primary Dx); Peroneal tendon injury, left, sequela; Sprain of anterior talofibular ligament of left ankle, sequela; Peroneal tendon injury, left, initial encounter; Edema of left ankle Start: 01-21-2022 End: 01-21-2022 Patient encounter procedure Dana Clinton DP Work Phone: [facility] Comment on above: Ankle instability, l eft (Primary Dx); Peroneal tendon injury, left, initial encounter; Sprain of anterior talofibular ligament of left ankle, initial encounter Start: 11-09-2020 End: 11-09-2020 Subsequent hospital visit by physician Nitish Nichols Work Phone: [facility] MRI Comment on above: Arrived Start: 02-07-2018 Emergency department patient visit Ewa [facility] Procedures Date Procedure Procedure Detail Performing Clinician Start: 11-09-2020 MRI UPPER EXTREMITY LEFT W CONTRAST Nitish Nichols Work Phone: Start: 11-09-2020 Arthrocentesis aspir &/inj major jt/bursa w/o us Nitish Nichols Work Phone: Plan of Treatment Date Care Activity Detail Author Start: 02-08-2028 DTaP/Tdap/Td vaccine (3 - Td) DTaP/Tdap/Td vaccine (3 - Td) [place] Start: 02-08-2028 Urine microalbumin profile DTAP,TDAP,TD (3 - Td or Tdap) [facility] Start: 06-06-2022 Influenza vaccination [facility] Start: 10-06-2021 DEPRESSION ASSESSMENT DEPRESSION ASS ESSMENT [facility] Start: 07-06-2021 COVID-19 VACCINE (3 - Booster for Pfizer series) COVID-19 VACCINE (3 - Booster for Pfizer series) [facility] Start: 03-31-2021 COVID-19 VACCINE (3 - Booster for Pfizer series) COVID-19 VACCINE (3 - Booster for Pfizer series) [facility] Start: 06-06-2020 Influenza vaccination Flu vaccine (# 1) [place], [place] Start: 2018 HPV TESTING HPV TESTING [facility] Start: 08-18-2018 Screening for malign ant neoplasm of cervix Cervical cancer screen [place], [place] Start: 2009 PAP TESTING PAP TESTING [facility] Start: 2006 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 DISEASE VISIT ANNUAL PCP TEAM CHRONIC DISEASE VISIT [facility] Start: 2006 HEPATITIS C SCREENING [facility] Start: 2006 HIV SCREENING HIV SCREENING [facility] Start: 2003 HIV screening HIV screen [place], [place] Start: 2000 Adult depression screening assessment DEPRESSION SCREENING [facility] Start: 1989 Varicella vaccine (1 of 2 - 2-dose childhood series) Varicella vaccine (1 of 2 - 2-dose childhood series) [place], [place] Start: 1988 HEPATITIS B (1 of 3 - 3-dose series) HEPATITIS B (1 of 3 - 3-dose series) [facility] Start: 1988 Hepatitis C screening Hepatitis C klaey banks [facility] Immunizations Immunization Date Immunization Notes Care Provider Fa artty 02-07-2018 tetanus toxoid, redu chuck diphtheria toxoid, and acellular pertussis vaccine, adsorbed Nitish Sinclairble [facility] 12-22-2014 tetanus toxoid, redu chuck diphtheria toxoid, and acellular pertussis vaccine, adsorbed Dana Clinton DPTriny Work Phone: [facility] Payers Date Payer Category Payer Private Health Insurance [id number] 2025 Self-pay [id number] Private Health Insurance [id number] 2008 Private Health Insurance 1988 Unknown [id number] 1988 Unknown [id number] 1988 Unknown [id number] 1988 Unknown [id number] Unknown [id number] Social History Date Type Detail Facility Start: 02-07-2018 End: 04-10-2022 Tobacco smoking status NHIS Never smoker [facility] Start: 02-07-2018 End: 05-25-2021 Tobacco use and exposure Never used [place], [place] Start: 02-07-2018 End: 07-19-2022 Alcohol intake Current drinker of alcohol (finding) [place], [place] Start: 02-07-2018 Alcohol Comment occasional/rare [place], [place] Start: 1990 Sex Assigned At Not on file M [place], [place] Start: 01-21-2022 End: 07-19-2022 Alcohol intake [facility] Start: 01-11-2022 End: 07-19-2022 Exposure to SARS-CoV-2 (event) Not sure [facility] Start: 04-10-2022 Tobacco smoking stat us NHIS Unknown if ever smoked [facility] Start: 1990 Sex Assigned At Female W [facility] Medical Equipment Procedure Code Equipment Code Equipment Origin al Text Equipment Identifier Dates [place] [employer] 0 .5 [place] 4 [employer] 22.2mm Suture - [id number] Start: 11-21-2021 [place] [employer] 1 .5 [place] 2 [employer] 26.2mm Suture - [id number] Start: 11-21-2021 [place] [employer] 1 .5 [place] 2 [employer] 26.2mm Suture - [id number] Start: 11-21-2021 Clinical Notes 05-26-2021 to 05-11-2025 Note Date & Type Note Facility 05-11-2025 Evaluation note Diagnosis Onset Date Resolution Fatigue acute May 11 4:47pm Hypothyroidism acute May 4:47pm [facility] Work Phone: [phone] 320-531710-14-2022 History of Present illness Narrative* Ambrocio Enciso, LANCE - 07/19/2022 1:43 PM EDT Images from the original note were not included. 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 Is fully back to life with no pain/instability/limitation, even played soccer this weekend without issue. Compliant satisfied. Past Medical History ACTIVE PROBLEM LIST Closed Nondisplaced Fracture of Left Talus With Delayed Healing Ankle Instability, Left Peroneal Tendon Injury, Left, Initial Encounter Hypothyroidism Past Surgical History PAST SURGICAL HISTORY Procedure Laterality Date KNEE SURGERY HX Right 2013 Medications Current Outpatient Medications Medication Sig Dispense [...] 100 mcg by mouth daily before breakfast. Indications:HYPOTHYROIDISM No current facility-administered medications for this visit. [...] Mild hallux abduction with flexible digital contractures RL.Remaining joints have grossly full smooth ROM without obvious deformity, crepitus, or instability. Gait Analysis Not performed today. Shoegear Inspection Not performed today. Outside Results None to review today. Labs Hemoglobin (g/dL) Date Value 02/23/2015 10.8 Hematocrit (%) Date Value 02/23/2015 33.7 WBC (k/uL) Date Value 02/23/2015 11.06 Platelet Count (k/uL) Date Value 02/23/2015 200 CMP: No results found for this basename: GLUC,BUN,CREAT,NA,K,CHLOR,CO2,TPROT,ALB,CA,ALKPHOS,TBILI,AST,ALT Office Radiographs None today. ASSESSMENT: Encounter Diagnosis ICD-10-CM 1. 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 Peroneal tendon injury, left, sequela S86.302S 3. Sprain of anterior talofibular ligament of left ankle, sequela S93.492S PLAN: Reviewed the medical record, specific findings, and collaborative customized plan with patient- allquestions were answered. The patient's expectations, preferences, limitations, [...] prepare, review separately obtained history, examine, evaluate, insurance counsel, educate, order medications/tests/procedures, refer, communicate with other healthcare professionals, document clinical information, independently interpret and communicate results, and coordinate care: 26 minutes. Ambrocio Enciso DPM, FACFAS, FFPM [facility]) [facility] [address] [place] [address] [email or web address] documented in this [facility]22 NoteHNO ID: [id number] Author: Dana Clinton DPM Service: ? Author Type: Physician Type: Progress Notes Filed: 03/25/2022 9:55 AM Note Text: Podiatric Post-Op Office Visit: DOS: 11/21/2021 POV: 7 Procedure: 1. Peroneal tendon repair, left foot 2. Lateral ankle stabilization, left foot 3. Ankle arthroscopy, left foot HPI: Ms. Umer Fink is a 31 year old female [...] plan as documented in the resident?s note. [facility] History of Present illness Narrative* Dana Clinton DPM - 03/25/2022 8:25 AM EDT Podiatric Post-Op Office Visit: DOS: 11/21/2021 POV: 7 Procedure: 1. Peroneal tendon repair, left foot 2. Lateral ankle stabilization, left foot 3. Ankle arthroscopy, left foot HPI: Ms. Umer Fink is a 31 year old female who presents today s/p procedures noted above. Patient states she is doing well without pain. Does report some discomfort and swelling after being onher feet for 12 hours for 2 days in a row. Denies any residual pain today. She only has been in thelace up ankle brace when playing sports with her kids. She has been performing range of motion exercises daily. Has noticed significant improvement in mobility and strength in the ankle. Denies any nausea, vomiting, shortness of breath, calf pain, or any other constitutional complaints. Denies any recent injury or trauma. No other pedal complaints. PCP: No primary care provider on file.: [facility] PAST MEDICAL HISTORY Diagnosis Date Closed [...] 100 mcg by mouth daily before breakfast. Indications:HYPOTHYROIDISM No current facility-administered medications for this visit. [...] as documented in the resident s note. Dana Clinton DPM documented in this encounterKind[facility]05-[facility]-2022 NoteHNO ID: [id number] Author: Dana Clinton DPM Service: ? Author Type: Physician Type: Progress Notes Filed: 02/11/2022 12:23 PM Note Text: Podiatric Post-Op Office Visit: DOS: 11/21/2021 POV: 6 POD: 83 Procedure: 1. Peroneal tendon repair, left foot 2. Lateral ankle stabilization, left foot 3. Ankle arthroscopy, left foot HPI: Ms. Umer Fink is a 31 year old female [...] plan as documented in the resident?s note. [facility] History of Present illness Narrative* Dana Clinton DPM - 02/11/2022 9:32 AM EDT Podiatric Post-Op Office Visit: DOS: 11/21/2021 POV: 6 POD: 83 Procedure: 1. Peroneal tendon repair, left foot 2. Lateral ankle stabilization, left foot 3. Ankle arthroscopy, left foot HPI: Ms. Umer Fink is a 31 year old female who presents today s/p procedures noted above. Patient states she is doing well and has been in no pain with weight bearing in the lace up ankle brace and supportive shoes. Has been performing range of motion exercises daily. Has noticed significantimprovement in mobility and strength in the ankle. Denies any nausea, vomiting, shortness of breath, calf pain, or any other constitutional complaints. Denies any recent injury or trauma. No other pedal complaints. PCP: No primary care provider on file.: [facility] PAST MEDICAL HISTORY Diagnosis Date Closed [...] 100 mcg by mouth daily before breakfast. Indications:HYPOTHYROIDISM No current facility-administered medications for this visit. [...] as documented in the resident s note. Dana Clinton DPM documented in this encounterKind[facility]04-18-2022 NoteHNO ID: [id number] Author: Dana Clinton DPM Service: ? Author Type: Physician Type: Progress Notes Filed: 01/21/2022 11:07 AM Note Text: Podiatric Post-Op Office Visit: DOS: 11/21/2021 POV: 5 POD: 62 Procedure: 1. Peroneal tendon repair, left foot 2. Lateral ankle stabilization, left foot 3. Ankle arthroscopy, left foot HPI: Ms. Umer Fink is a 31 year old female [...] LOWER EXTREMITY EXAMINATION: Ambulates to clinic in [facility] boot Vascular: Palpable Dorsalis Pedis and [...] sooner for any new or worsening symptoms. [facility] History of Present illness Narrative* Dana Clinton DPM - 01/21/2022 10:33 AM EDT Podiatric Post-Op Office Visit: DOS: 11/21/2021 POV: 5 POD: 62 Procedure: 1. Peroneal tendon repair, left foot 2. Lateral ankle stabilization, left foot 3. Ankle arthroscopy, left foot HPI: Ms. Umer Fink is a 31 year old female [...] PCP: No primary care provider on file.: [facility] PAST MEDICAL HISTORY Diagnosis Date Closed [...] 100 mcg by mouth daily before breakfast. Indications:HYPOTHYROIDISM No current facility-administered medications for this visit. : ALLERGIES Allergen Reactions Amoxicillin Anaphylaxis Penicillins Anaphylaxis Hives and swelling in throat : PAST SURGICAL HISTORY Procedure Laterality Date KNEE SURGERY HX Right 2012 FAMILY HISTORY [...] LOWER EXTREMITY EXAMINATION: Ambulates to clinic in CAM boot Vascular: Palpable Dorsalis Pedis and Posterior [...] sooner for any new or worsening symptoms. Dana Clinton DPM documented in this encounterKind[facility]03-28-2022 NoteHNO ID: [id number] Author: Dana Clinton DPM Service: ? Author Type: Physician Type: Progress Notes Filed: 01/01/2022 7:23 AM Note Text: Podiatric Post-Op Office Visit: DOS: 11/21/2021 POV: 4 POD: 40 Procedure: 1. Peroneal tendon repair, left foot 2. Lateral ankle stabilization, left foot 3. Ankle arthroscopy, left foot HPI: Ms. Umer Fink is a 31 year old female [...] LOWER EXTREMITY EXAMINATION: Ambulates to clinic in CAM boot Vascular: Palpable Dorsalis Pedis and Posterior [...] plan as documented in the resident?s note. [facility]03-28-2022 NoteHNO ID: [id number] Author: Nya Sanchez Service: ? Author Type: ? Type: Progress Notes Filed: 01/01/2022 7:23 AM Note Text: Post op 11/21/21[facility]03-07-2022 NoteHNO ID: [id number] Author: Dana Clinton DPM Service: ? Author Type: Physician Type: Progress Notes Filed: 12/10/2021 2:39 PM Note Text: Podiatric Post-Op Office Visit: DOS: 11/21/2021 POV: 3 POD: 19 Procedure: 1. Peroneal tendon repair, left foot 2. Lateral ankle stabilization, left foot 3. Ankle arthroscopy, left foot HPI: Ms. Umer Fink is a 31 year old female [...] sooner for any new or worsening symptoms. [facility]02-28-2022 NoteHNO ID: [id number] Author: Dana Clinton DPM Service: ? Author Type: Physician Type: Progress Notes Filed: 12/03/2021 12:31 PM Note Text: Podiatric Post-Op Office Visit: DOS: 11/21/2021 POV: 2 POD: 12 Procedure: 1. Peroneal tendon repair, left foot 2. Lateral ankle stabilization, left foot 3. Ankle arthroscopy, left foot HPI: Ms. Umer Fink is a 31 year old female [...] PCP: No primary care provider on file.: [facility] PAST MEDICAL HISTORY Diagnosis Date - [...] Redressed with xeroform, 4x4, ABD, Webril, and VIVEK bandage. Posterior splint with foot and ankle [...] sooner for any new or worsening symptoms. [facility]-2022 NoteHNO ID: [id number] Author: Dana Clinton DPM Service: ? Author Type: Physician Type: Progress Notes Filed: 11/27/2021 12:17 PM Note Text: Podiatric Post-Op Office Visit: DOS: 11/21/2021 POV: 1 POD: 6 Procedure: 1. Peroneal tendon repair, left foot 2. Lateral ankle stabilization, left foot 3. Ankle arthroscopy, left foot HPI: Ms. Umer Fink is a 31 year old female [...] PCP: No primary care provider on file.: [facility] PAST MEDICAL HISTORY Diagnosis Date - [...] Redressed with xeroform, 4x4, ABD, Webril, and VIVEK bandage. Posterior splint with foot and ankle [...] plan as documented in the resident?s note. Dana Clinton [facility]02-16-2022 NoteHNO ID: [id number] Author: Kylie Jarrett APRN.MAINTENANCE SUPERVISOR Service: Anesthesiology Author Type: Nurse Jewel Stringer Type: Anesthesia Procedure Notes Filed: 11/21/2021 8:04 AM Note Text: ANESTHESIOLOGY PROCEDURE NOTE Airway General Information Procedure Start Time/Medication Administration: 11/21/2021 7:57 AM Patient location during procedure: OR Timeout Performed Pre-procedure: timeout performed Consent Obtained: Yes Patient identity confirmed: patient sedated or unresponsive Staffing MAINTENANCE SUPERVISOR: Kylie Jarrett APRN.MAINTENANCE SUPERVISOR Performed by: anesthesiologist Indications and Patient Condition [...] no Airway not difficult SIGNATURE: Cindi Jarrett APRN.MAINTENANCE SUPERVISOR PATIENT NAME: Umer Fink DATE: November 21, 2021 TIME: 8:03 AM CSN: [id number] NoteHNO ID: [id number] Author: Nirav Jones MD Service: Anesthesiology Author Type: Anesthesiologist Type: Anesthesia Procedure Notes Filed: 11/21/2021 7:40 AM Note Text: ANESTHESIOLOGY PROCEDURE NOTE Peripheral Nerve Block General Information Procedure Start Time/Medication Administration: 11/21/2021 7:14 AM Procedure End time: 11/21/2021 7:15 AM Patient location during procedure: pre-op Timeout Performed Pre-procedure: timeout performed Consent Obtained: Yes Patient identity confirmed: 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, 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 Reason for block: post-op pain management/at surgeon's [...] mL SIGNATURE: Nirav Jones MD PATIENT NAME: Umer Fink DATE: November 21, 2021 TIME: 7:39 AM CSN: [id number] NoteHNO ID: [id number] Author: Nirav Jones MD Service: Anesthesiology Author Type: Anesthesiologist Type: Anesthesia Procedure Notes Filed: 11/21/2021 7:39 AM Note Text: ANESTHESIOLOGY PROCEDURE NOTE Peripheral Nerve Block General Information Procedure Start Time/Medication Administration: 11/21/2021 7:05 AM Procedure End time: 11/21/2021 7:13 AM Patient location during procedure: pre-op Timeout Performed Pre-procedure: timeout performed (0710) Consent Obtained: Yes Patient identity confirmed: arm band, 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 Author Type: Physician Type: Progress Notes Filed: 11/05/2021 1:07 PM Note Text: Podiatric Office Visit: Chief Complaint: Left ankle pain s/p injury 03/2021 HPI: Ms. Umer Fink is a 31 year old female [...] PCP: No primary care provider on file.: [facility] PAST MEDICAL HISTORY Diagnosis Date - [...] unsightly scar, amputation, d (more content not included)...[facility]12-17-2021 NoteHNO ID: [id number] Author: Dana Clinton DPM Service: ? Author Type: Physician Type: Progress Notes Filed: 09/24/2021 7:58 AM Note Text: Podiatric Office Visit: Chief Complaint: Left ankle pain s/p injury 03/2021 HPI: Ms. Umer Fink is a 31 year old female [...] PCP: No primary care provider on file.: [facility] PAST MEDICAL HISTORY Diagnosis Date - [...] follow-up with Dr. Cuello for next week. Dana Clinton DPM [facility]12-05-2021 NoteHNO ID: [id number] Author: ASHLEY Lopez Service: Radiology Author Type: Access Nurse Type: Progress Notes Filed: 09/09/2021 2:02 PM Note Text: Radiology Service Progress Note PATIENT NAME: Umer Fink DATE OF SERVICE: September 09, 2021 [...] BY: ASHLEY Lopez September 09, 2021 2:[address] PM[facility] [id number] NoteHNO ID: [id number] Author: Dana Clinton DPM Service: ? Author Type: Physician Type: Progress Notes Filed: 08/13/2021 9:40 AM Note Text: Podiatric Office Visit: Chief Complaint: Left ankle pain s/p injury 03/2021 HPI: Ms. Umer Fink is a 30 year old female [...] go over the results and further treatment. Dana Clinton DPM [facility]10-08-2021 NoteHNO ID: [id number] Author: Dana Clinton DPM Service: ? Author Type: Physician Type: Progress Notes Filed: 07/16/2021 7:49 AM Note Text: Podiatric Office Visit: Chief Complaint: Left ankle pain and right foot pain s/p injury 03/2021 HPI: Ms. Umer Fink is a 30 year old female [...] new or worsening symptoms. Sally Delgado DPM PG (more content not included)...[facility] 06-15-2021 NoteHNO ID: [id number] Author: Dana Clinton DPM Service: ? Author Type: Physician Type: Progress Notes Filed: 06/15/2021 9:41 AM Note Text: Podiatric Office Visit: Chief Complaint: Left ankle pain, right foot pain s/p injury HPI: Ms. Umer Fink is a 30 year old female [...] PCP: No primary care provider on file.: [facility] PAST MEDICAL HISTORY Diagnosis Date - Thyroid [...] sooner for any new or worsening symptoms. Dana Clinton DPM [facility]08-21-2021 NoteHNO ID: [id number] Author: Dana Clinton DPM Service: ? Author Type: Physician Type: Progress Notes Filed: 05/27/2021 8:59 PM Note Text: Initial Podiatric Office Visit: Chief Complaint: Left ankle pain, right foot pain s/p injury HPI: Ms. Umer Fink is a 30 year old female [...] x 2 days ago. She has taken [id number] analgesics with minimal relief of her symptoms. [...] for any new or (more content not included)...[facility] Diagnosis Ankle instability, left- Primary Peroneal tendon injury, left, initial encounter Sprain of anterior talofibular ligament of left ankle, initial encounter documented [facility]* Diagnosis Ankle instability, left- Primary Peroneal tendon injury, left, sequela Sprain of anterior talofibular ligament of left ankle, sequela Peroneal tendon injury, left, initial encounter Edema of left ankle documented in this encounter [facility]* Diagnosis Ankle instability, left- Primary Peroneal tendon injury, left, sequela Sprain of anterior talofibular ligament of left ankle, sequela documented [facility]* Diagnosis Onset Date Resolution Status Herpes simplex acute Hypothyroidism acute 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 ACP-Advance Directive ACP-Power of [employer] Documents on File Type Date Recorded 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 Advance Directive(s) 11/06/2021 9:17 AM Chief Complaint and Reason for Visit Chief Complaint medication refills & Lab(TSH) Reason for Visit Herpes simplex Hypothyroidism Chief Complaint medication refills & Lab(TSH) medication refills & lab draw Reason for Visit Herpes simplex Hypothyroidism Hypothyroidism Chief Complaint medication refills Reason for Visit Herpes simplex Hypothyroidism Chief Complaint Admit Date medication refills/labs May 11, 2025 4:47pm Reason for Visit Admit Date Fatigue May 11, 2025 4:4 7pm Hypothyroidism May 11, 2025 4:4 7pm Additional Source Comments INFORMATION SOURCE (unrecogn ized section and content) DATE CREATED AUTHOR 04/09/2018 [facility] DATE CREATED AUTHOR AUTHOR'S ORGANIZ ATION 11/14/2020 [facility] DATE CREATED AUTHOR AUTHOR'S ORGANIZ ATION 09/10/2021 [facility] DATE CREATED AUTHOR AUTHOR'S ORGANIZ ATION 11/27/2021 [facility] DATE CREATED AUTHOR AUTHOR'S ORGANIZ ATION 03/25/2022 [facility] DATE CREATED AUTHOR AUTHOR'S ORGANIZ ATION 11/19/2022 [facility] DATE CREATED AUTHOR AUTHOR'S ORGANIZ ATION 05/19/2025 [facility] DATE CREATED AUTHOR AUTHOR'S ORGANIZ ATION 06/09/2025 [facility] Source Comments (unrecognize d section and content) In the event this informatio n is protected by the Federal Confidentiality of Alcohol and Drug Abuse Patient Records regulations: The Federal rules restrict any use of the information to criminally investigate or prosecute any alcohol or drug abuse patient.[facility] DaytonIn the event this information is protected by the Federal Confidentiality of Alcohol and Drug Abuse Patient Records regulations: The Federal rules restrict any use of the information to criminally investigate or prosecute any alcohol or drug abuse patient.[facility] DaytonIn the event this information is protected by the Federal Confidentiality of Alcohol and Drug Abuse Patient Records regulations: The Federal rules restrict any use of the information to criminally investigate or prosecute any alcohol or drug abuse patient.[facility] DaytonIn the event this information is protected by the Federal Confidentiality of Alcohol and Drug Abuse Patient Records regulations: The Federal rules restrict any use of the information to criminally investigate or prosecute any alcohol or drug abuse patient.[facility] Reason for Visit (unrecogniz ed section and content) Reason Comments Follow Up Lt Ft Reason Comments Foot Pain (Midfoot) left Reason Comments Follow Up left ankle Reason Comments Post Op Care Teams (unrecognized sec tion and content) Control Panel Tester Relationship Specialty Start Date End Date Randy Cueva, DYE AND CHEMICAL COORDINATOR.ENGLISH TEACHER [address] [place], [place] [phone] PCP - General Family Practice 08/14/21 Control Panel Tester Relationship Specialty Start Date End Date Randy Cueva, DYE AND CHEMICAL COORDINATOR.ENGLISH TEACHER [address] [place], [place] [phone] PCP - General Family Practice 08/14/21 Control Panel Tester Relationship Specialty Start Date End Date Randy Cueva, DYE AND CHEMICAL COORDINATOR.ENGLISH TEACHER [address] [place], [place] [phone] PCP - General Family Practice 08/14/21 Control Panel Tester Relationship Specialty Start Date End Date Randy Cueva, DYE AND CHEMICAL COORDINATOR.ENGLISH TEACHER [address] [place], [place] [phone] PCP - General Family Medicine 08/14/21 Team Status: Active Member Role Status Dates Randy Cueva CABINET PROFESSIONAL, CABINET PROFESSIONAL-C Primary Care Provider Active Team Status: Inactive Member Role Status Dates Randy Cueva CABINET PROFESSIONAL, CABINET PROFESSIONAL-C Primary Care Pr ovider, Attending Provider, Referring Provider Active Team Status: Inactive Member Role Status Dates Randy Cueva CABINET PROFESSIONAL, CABINET PROFESSIONAL-C Primary Care Provider, Attend ing Provider Active Team Status: Active Member Role/Relationship Status Dates Randy Cueva CABINET PROFESSIONAL, CABINET PROFESSIONAL-C Primary Care Provider Active Team Status: Inactive Member Role/Relationship Status Dates Randy Cueva CABINET PROFESSIONAL, CABINET PROFESSIONAL-C Primary Care Provider Active Start: May 11, 2025 End: May 11, 2025 Randy Cueva CABINET PROFESSIONAL, CABINET PROFESSIONAL-C Attending Provider Active Start: May 11, 2025 End: May 11, 2025 Randy Cueva CABINET PROFESSIONAL, CABINET PROFESSIONAL-C Referring Provider Active Start: May 11, 2025 End: May 11, 2025 Team Status: Inactive Member Role/Relationship Status Dates Randy Cueva CABINET PROFESSIONAL, CABINET PROFESSIONAL-C Primary Care Provider Active Start: May 11, 2025 End: May 11, 2025 Randy Cueva CABINET PROFESSIONAL, CABINET PROFESSIONAL-C Attending Provider Active Start: May 11, 2025 End: May 11, 2025 Randy Cueva CABINET PROFESSIONAL, CABINET PROFESSIONAL-C Referring Provider Active Start: May 11, 2025 End: May 11, 2025 Goals (unrecognized section and content) Goals may [...] BE BASED ON THE PRIMARY CLINICAL RECORDS. [employer] provides no warranty or guarantee of the accuracy or [phone] information in [phone] [id number]
== END | disposition home or self-care (01) ==
PROVIDERS: PCP Nurse Practitioner; Referring Provider Nurse Practitioner; Visit Provider Nurse Practitioner
DX: E03.9 Hypothyroidism, unspecified (principal)
CPT/HCPCS: 84439; 84443

== ENCOUNTER → 2025-07-07 | Outpatient (CLI) | payer OTHER, SELFPAY | END | disposition home or self-care (01) | PROVIDERS: PCP Nurse Practitioner; Referring Provider Nurse Practitioner; Visit Provider Nurse Practitioner | DX: E03.9 Hypothyroidism, unspecified (principal) | CPT/HCPCS: 84443 ==